=== PATIENT | female | born 1950 | race Caucasian/White ===

== ENCOUNTER 2016-05-09 14:45 | Inpatient (IN) | payer OTHER ==
[~2016-05-09] VITALS: Ht 160 cm; Wt 71.8 kg
[~2016-05-09 14:45] MED LIST: ACET-1256 PO; LINA1CAP PO; PRLSR20 PO
[2016-05-09] MEDS ORDERED: SODIUM CHLORIDE 0.9% 1000ML 1,000 ML IV STA ×2 (15:01→16:35)
[2016-05-09] MEDS ORDERED: ONDANSETRON INJ 2 MG/ML 2 ML VIAL IV STA (15:01)
[2016-05-09] MEDS ORDERED: OPTIRAY 320 IV PRN (15:15)
[2016-05-09] MEDS: MoRPHine SULFATE 4 MG/ML 1 ML CARP\\VIAL IV PRN ×2 (15:17→16:46)
--- NOTE | 2016-05-09 15:25 | EMERGENCY ROOM VISIT NOTE ---
History Report prepared by Benedicto: Jamaal Levy Under the Supervision of: Dr. Lukasz Ann D.O. First contact with patient: 14:57 Chief Complaint: ABDOMINAL PAIN Stated Complaint: BELLY PAIN History of Present Illness The patient is a 65 year old female who presents to the Emergency Room with complaints of constant mid upper abdominal pain beginning twelve hours prior to arrival. She currently rates her discomfort as a 9/10 in severity. The patient associates nausea and vomiting with today's symptoms. She states her symptoms feel similar to when she had her bowel operated on for an obstruction. The patient notes she has a history of an appendectomy and cholecystectomy. She denies a history of pancreatitis. The patient notes she last had a similar episode over a year ago. She states she is a nonsmoker and occasionally drinks alcohol. Source of History: patient Onset: 12 hours [employer] Position: abdomen (mid upper) Symptom Intensity: 9/10 Timing: constant Associated Symptoms: + abdominal pain, + nausea, + vomiting Review of Systems See HPI for pertinent positives & negatives. A total of 10 systems reviewed and were otherwise negative. Past Medical & Surgical Medical Problems: (1) Migraine (2) SBO (small bowel obstruction) Surgical Problems: (1) Hx of appendectomy (2) Hx of cholecystectomy (3) S/P rotator cuff surgery (4) S/P tonsillectomy (5) S/P tonsillectomy and adenoidectomy (6) S/P tubal ligation Family History Cancer Diabetes mellitus FH: thyroid disease FHx: asthma FHx: epilepsy FHx: heart disease Hypertension Lung disease Social History Smoking Status: Never Smoker Alcohol Use: none Drug Use: none Marital Status: Housing Status: lives with family Occupation Status: retired Current/Historical Medications Scheduled Cholecalciferol (Vitamin D), 1 TAB PO DAILY Krill Oil (Krill Oil [place]-3), 1 CAP PO DAILY Linaclotide (Linzess), 145 MCG PO DAILY Omeprazole (Prilosec), 20 MG PO DAILY Scheduled PRN Acetaminophen (Tylenol), 1,000 MG PO Q6 PRN for Pain or Fever Allergies Coded Allergies: Corticosteroids (Verified Allergy, Unknown, RASH/NERVOUSNESS, 05/09/16) Physical Exam Vital Signs Date Time Temp Pulse Resp B/P Pulse Ox O2 Delivery O2 Flow Rate FiO2 05/09/16 18:00 98 Room Air 05/09/16 17:34 70 18 129/75 98 Room Air 05/09/16 16:45 74 16 123/77 98 Room Air 05/09/16 15:33 73 05/09/16 14:50 36.4 102 20 164/100 99 Room Air Physical Exam GENERAL: Patient is awake, alert, and very anxious and uncomfortable appearing. EYES: The conjunctivae are clear. The pupils are round and reactive. EARS, NOSE, MOUTH AND THROAT: The nose is without any evidence of any deformity. Mucous membranes are dry, tongue is midline NECK: The neck is nontender and supple. RESPIRATORY: Normal respiratory effort is noted there is no evidence of wheezing rhonchi or rales CARDIOVASCULAR: Regular rate and rhythm noted there no murmurs rubs or gallops normal S1 normal S2 GASTROINTESTINAL: The abdomen is moderately distended. No specific guarding or rigidity noted. MUSCULOSKELETAL/EXTREMITIES: There is no evidence of gross deformity full range of motion is noted in the hips and shoulders SKIN: There is no obvious evidence of any rash. There are no petechiae, pallor or cyanosis noted. NEUROLOGIC: Patient is awake alert and oriented x3. Medical Decision & Procedures ER Provider Diagnostic Interpretation: Radiology results as stated below per my review and radiologist interpretation: CHEST ONE VIEW PORTABLE CLINICAL HISTORY: Abdominal pain. COMPARISON STUDY: Chest radiograph December 09, 2014. FINDINGS: Lung volumes are normal. There is no pneumothorax or pleural effusion. Cardiac size is normal. Mediastinal contours are stable. There is no evidence of pulmonary edema. IMPRESSION: No acute cardiopulmonary findings. Electronically signed by: Xavi Olsen M.D. 05/09/2016 3:[address] OF THE ABDOMEN AND PELVIS WITH CONTRAST CLINICAL HISTORY: Vomiting. History of small bowel obstruction. COMPARISON STUDY: CT of the abdomen and pelvis March 08, 2014 and KUB March 09, 2014. TECHNIQUE: Following IV administration of 114 mL of Optiray-320, axial images of the abdomen and pelvis were obtained from the lung bases to the proximal femurs. Images were reviewed in the axial, sagittal, and coronal planes. IV contrast was administered without complication. CT DOSE: 402.98 mGy.cm FINDINGS: No pneumatosis, free air or portal venous gas is present. A 1.8 cm right hepatic lobe cyst is noted. Scarring of both kidneys is noted. The spleen, adrenal glands and pancreas are normal. There is no biliary or pancreatic ductal dilatation. The gallbladder is surgically absent. The mid to distal small bowel is fluid-filled and mildly dilated. There is a small amount of associated ascites and mesenteric infiltration. The transition point is is within the right mid abdomen shown on axial image 185 of 466. No suspicious osseous lesions are identified. IMPRESSION: Findings consistent with a moderate grade partial small bowel obstruction. Fluid-filled, dilated small bowel with a small amount of associated ascites and mesenteric infiltration. Transition point within the mid to distal ileum, within the right aspect of the abdomen. Decompressed distal small bowel. Mild distended, fluid-filled stomach. Electronically signed by: Xavi Olsen M.D. 05/09/2016 4:27 PM Laboratory Results Test 05/09/16 15:15 05/09/16 15:25 05/09/16 16:30 Prothrombin Time 10.0 SECONDS (9.0-12.0) Prothromb Time International Ratio 0.9 (0.9-1.1) Activated Partial Thromboplast Time 25.5 SECONDS (21.0-31.0) Partial Thromboplastin Ratio 1.0 Total Creatine Kinase 92 U/L (26-192) Creatine Kinase MB 1.5 ng/ml (0.5-3.6) Creatine Kinase MB Ratio 1.6 (0-3.0) Troponin I < 0.015 ng/ml (0-0.045) Lipase 100 U/L (73-393) Bedside Hemoglobin 14.3 g/dl (12.0-16.0) Bedside Hematocrit 42 % (37-47) Bedside Sodium 140 mEq/L (135-144) Bedside Potassium 3.9 mEq/L (3.3-5.0) Bedside Chloride 104 mEq/L (101-112) Bedside Total CO2 24 mEq/l (24-31) Bedside Blood Urea Nitrogen 8 mg/dl (7-18) Bedside Creatinine 0.6 mg/dl (0.6-1.3) Bedside Glucose (other) 112 mg/dl (70-99) Bedside Ionized Calcium (Maia) 1.22 mmol/l (1.12-1.32) Urine Color YELLOW Urine Appearance CLEAR (CLEAR) Urine pH 8.0 (4.5-7.5) Urine Specific [place] > 1.045 (1.000-1.030) Urine Protein NEG (NEG) Urine Glucose (UA) NEG (NEG) Urine Ketones 1+ (NEG) Urine Occult Blood NEG (NEG) Urine Nitrite NEG (NEG) Urine Bilirubin NEG (NEG) Urine Urobilinogen NEG (NEG) Urine Leukocyte Esterase NEG (NEG) Laboratory results per my review. Medications Administered Medications (Trade) Dose Ordered Sig/Patricia Route Start Time Stop Time Status Last Admin Dose Admin Sodium Chloride (Nss 1000ml) 1,000 ml @ 999 mls/hr Q1H1M STAT IV 05/09/16 15:01 05/09/16 16:01 DC 05/09/16 15:17 999 MLS/HR Ondansetron HCl (Zofran Inj) 4 mg NOW STAT IV 05/09/16 15:01 05/09/16 15:03 DC 05/09/16 15:16 4 MG Morphine Sulfate 4 mg 4 mg Q15M PRN IV 05/09/16 15:15 05/09/16 19:27 DC 05/09/16 16:46 4 MG Pantoprazole Sodium 40 mg/ Syringe 10 ml @ 5 mls/min NOW ONCE IV 05/09/16 16:45 05/09/16 16:46 DC 05/09/16 16:54 5 MLS/MIN Famotidine 20 mg/ Dextrose 102 ml @ 200 mls/hr Q12H IV 05/09/16 16:45 05/09/16 19:27 DC 05/09/16 16:54 200 MLS/HR Sodium Chloride (Nss 1000ml) 1,000 ml @ 250 mls/hr Q4H STAT IV 05/09/16 16:35 05/09/16 19:26 DC 05/09/16 16:47 250 MLS/HR ECG Indication: abdominal pain Rate (beats per minute): 71 Rhythm: normal sinus Findings: no ectopy, other (no acute ST segment abnormalities) Comparison ECG Date: 03/08/2014 Change: no significant change ED Course 1459: The patient was evaluated in room B2. A complete history and physical examination were performed. 1501: Ordered Zofran Inj 4 mg IV, Sodium Chloride 1,000 ml @ 999 mls/hr IV. 1515: Ordered Morphine Sulfate 4 mg IV. 1635: Ordered Sodium Chloride 1,000 ml @ 250 mls/hr IV. 1645: Ordered Famotidine 20 mg/Dextrose 102 ml @ 200 mls/hr IV, Pantoprazole Sodium 40 mg/Syringe 10 ml @ 5 mls/min IV. 1703: I spoke to SHEYLA Pedraza (Hospitalist) about the patient's case, and she will follow the patient for further evaluation. Medical Decision Differential diagnosis: Etiologies such as diverticulitis, PUD, biliary pathology, UTI, pancreatitis, obstruction, mesenteric ischemia, aortic pathology, infections, inflammatory bowel disease, renal colic, as well as others were entertained. Nursing notes reviewed. Nursing notes reviewed. Patient's previous electronic medical records reviewed. The patient is a 65-year-old female who presented to the emergency department for an evaluation of abdominal distention nausea and vomiting. The patient has a history small bowel obstruction. Radiographic studies today do show a high suspicion for partial small bowel obstruction but it seems very significant at this time. The patient was treated with IV fluids IV pain medicine and IV antiemetics. She was also treated with proton pump inhibitors and H2 blockers. On subsequent reevaluation she was not having significant nausea and vomiting. I discussed the patient's laboratory and radiographic studies with her. I also discussed her case with the on-call [facility] hospitalist group. They've agreed to evaluate patient in emergency department for further management and disposition. Consults Time Called: 1649 Consulting Physician: SHEYLA Pedraza (Hospitalist) Returned Call: [phone] I spoke to SHEYLA Pedraza (Hospitalist) about the patient's case, and she will follow the patient for further evaluation. Impression Primary Impression: Small bowel obstruction Additional Impression: Nausea & vomiting Scribe Attestation The scribe's documentation has been prepared under my direction and personally reviewed by me in its entirety. I confirm that the note above accurately reflects all work, treatment, procedures, and medical decision making performed by me. Departure Information Dispostion Being Evaluated By Hospitalist (SHEYLA Pedraza (Hospitalist)) Referrals No Doctor, Assigned (PCP) Problem Qualifiers Additional Impression: Nausea & vomiting Vomiting type: unspecified Vomiting Intractability: non-intractable Qualified Codes: R11.2 - Nausea with vomiting, unspecified
[2016-05-09 15:29] LABS: BASO % 0.3 %; BASO ABS # 0.02 K/uL (0-0.2); COMPLETE YES; EOS % 0.9 %; HEMATOCRIT 39.1 % (37-47); IG% 0.3 %; LYMPH ABS # 0.83 K/uL (1.2-3.4); MEAN CELL VOLUME 87.5 fL (80-100); MEAN CORPUSCULAR HEMOGLOBIN 31.3 pg (25-34); MEAN CORPUSCULAR HGB CONC 35.8 g/dl (32-36); MEAN PLATELET VOLUME 9.5 fL (7.4-10.4); MONO % 4.4 %; NEUT % 83.1 %; PLATELET COUNT 345 K/uL (130-400); RED BLOOD COUNT 4.47 M/uL (4.2-5.4); WHITE BLOOD COUNT 7.53 K/uL (4.8-10.8)
[2016-05-09] MEDS ORDERED: KRIL1CAP7 PO (15:35)
[2016-05-09] MEDS ORDERED: CHOL1TAB42 PO (15:35)
[2016-05-09 15:38] LABS: ISTAT CREATININE 0.6 mg/dl (0.6-1.3); ISTAT HEMOGLOBIN 14.3 g/dl (12.0-16.0); ISTAT IONIZED CALCIUM 1.22 mmol/l (1.12-1.32)
[2016-05-09 15:40] LABS: INR 0.9 (0.9-1.1)
[2016-05-09 15:46] LABS: ALT/SGPT 21 U/L (12-78); BLOOD UREA NITROGEN 8 mg/dl (7-18); BUN/CREATININE RATIO 10.6 (10-20); CALCIUM 9.5 mg/dl (8.5-10.1); CARBON DIOXIDE 27 mmol/L (21-32); CHLORIDE 106 mmol/L (98-107); CREATININE 0.77 mg/dl (0.60-1.20); GLUCOSE 110 mg/dl (70-99); POTASSIUM 3.8 mmol/L (3.5-5.1); SODIUM 141 mmol/L (136-145)
[2016-05-09 15:51] LABS: ALKALINE PHOSPHATASE 102 U/L (45-117); AST/SGOT 18 U/L (15-37); CKMB/CK RATIO 1.6 (0-3.0)
--- NOTE | 2016-05-09 15:52 | DIAGNOSTIC IMAGING REPORT ---
CHEST ONE VIEW PORTABLE CLINICAL HISTORY: Abdominal pain. COMPARISON STUDY: Chest radiograph December 09, 2014. FINDINGS: Lung volumes are normal. There is no pneumothorax or pleural effusion. Cardiac size is normal. Mediastinal contours are stable. There is no evidence of pulmonary edema. IMPRESSION: No acute cardiopulmonary findings. Electronically signed by: Xavi Olsen M.D. 05/09/2016 3:50 PM Dictated Date/Time: 05/09/2016 3:49 PM
--- NOTE | 2016-05-09 16:28 | DIAGNOSTIC IMAGING REPORT ---
CT OF THE ABDOMEN AND PELVIS WITH CONTRAST CLINICAL HISTORY: Vomiting. History of small bowel obstruction. COMPARISON STUDY: CT of the abdomen and pelvis March 08, 2014 and KUB March 09, 2014. TECHNIQUE: Following IV administration of 114 mL of Optiray-320, axial images of the abdomen and pelvis were obtained from the lung bases to the proximal femurs. Images were reviewed in the axial, sagittal, and coronal planes. IV contrast was administered without complication. CT DOSE: 402.98 mGy.cm FINDINGS: No pneumatosis, free air or portal venous gas is present. A 1.8 cm right hepatic lobe cyst is noted. Scarring of both kidneys is noted. The spleen, adrenal glands and pancreas are normal. There is no biliary or pancreatic ductal dilatation. The gallbladder is surgically absent. The mid to distal small bowel is fluid-filled and mildly dilated. There is a small amount of associated ascites and mesenteric infiltration. The transition point is is within the right mid abdomen shown on axial image 185 of 466. No suspicious osseous lesions are identified. IMPRESSION: Findings consistent with a moderate grade partial small bowel obstruction. Fluid-filled, dilated small bowel with a small amount of associated ascites and mesenteric infiltration. Transition point within the mid to distal ileum, within the right aspect of the abdomen. Decompressed distal small bowel. Mild distended, fluid-filled stomach. Electronically signed by: Xavi Olsen M.D. 05/09/2016 4:27 PM Dictated Date/Time: 05/09/2016 4:18 PM
[2016-05-09] MEDS ORDERED: PANTOprazole INJ 40 MG in SYRINGE 0 ML IV ONE (16:45)
[2016-05-09] MEDS ORDERED: FAMOTIDINE IV INJ 20 MG in DEXTROSE 5% 100ML 100 ML IV SCH (16:45)
[2016-05-09 16:49] LABS: URINE APPEARANCE CLEAR (CLEAR); URINE BILIRUBIN NEG (NEG); URINE COLOR YELLOW; URINE NITRITE NEG (NEG); URINE SPECIFIC GRAVITY > 1.045 (1.000-1.030); UROBILINOGEN NEG (NEG)
[2016-05-09 17:07] LABS: MANUAL MICROSCOPIC REQUIRED? NO; REVIEW REQ? NO
[2016-05-09 18:00] VITALS: O2SAT 98; BMI 28.0
[2016-05-09 18:02] VITALS: Ht 160 cm; Wt 71.8 kg
[2016-05-09] MEDS ORDERED: MoRPHine SULFATE 2 MG/ML CARP IV PRN (18:30)
[2016-05-09] MEDS ORDERED: MoRPHine SULFATE 4 MG/ML 1 ML CARP\\VIAL IV PRN (18:30)
[2016-05-09 19:15] VITALS: BP 130/78; PULSE 65; TEMP 36.5; O2SAT 95
[2016-05-09] MEDS ORDERED: NURSING VERBAL MED ORDER ONE (19:45)
[2016-05-09] MEDS ORDERED: ONDANSETRON INJ 2 MG/ML 2 ML VIAL ONE (19:49)
[2016-05-09] MEDS: D5W AND 1/2NSS + 20MEQ KCL 1,000 ML IV SCH (19:50)
[2016-05-09] MEDS ORDERED: ONDANSETRON INJ 2 MG/ML 2 ML VIAL IV PRN (20:00)
[2016-05-09 23:18] VITALS: BP 133/76; PULSE 68; TEMP 36.3; O2SAT 96
--- NOTE | 2016-05-09 23:19 | History and Physical ---
History & Physical Date & Time of Service: May 09, 2016 at 23:03 Chief Complaint: SBO Primary Care Physician: Zack Cerda D.O. History of Present Illness Source: patient, family This patient is a 65-year-old female with a history of small bowel obstruction, GERD, chronic constipation, lumbar spondylosis, and migraines, who presents to the ER with sudden onset of upper abdominal pain and vomiting that started the morning of admission. She is reported it felt exactly like the last time she had a small bowel obstruction. Her previous SBO was in 2012 at [facility] for which she underwent an exploratory laparotomy which did not reveal a cause for her SBO. The surgeon removed her appendix at that time. She denies fevers, chest pain, shortness of breath. Her CT of the abdomen and pelvis in the ER showed findings consistent with a moderate grade partial small bowel obstruction with a fluid-filled, dilated small bowel with a small amount of associated ascites and mesenteric infiltration. Transition point within the mid to distal ileum, within the right aspect of the abdomen. Past Medical/Surgical History Past Medical History: Migraine-now resolved post menopausal Small bowel obstruction GERD Lumbar spondylosis Chronic constipation Past Surgical History: Appendectomy Cholecystectomy Rotator cuff surgery-right Tonsillectomy Bilateral tubal ligation Exploratory laparotomy for SBO Cataracts Kidney repair-"tacked up" Family History Cancer Diabetes mellitus FH: thyroid disease FHx: asthma FHx: epilepsy FHx: heart disease Hypertension Lung disease Diabetes and coronary artery disease in father Lung cancer in her mother Brother from aortic aneurysm Sister passed way from complications from diabetes Sister currently with liver cancer Social History Smoking Status: Never Smoker Alcohol Use: occasionally (one drink per month) Drug Use: none Marital Status: Housing status: lives with family 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[employer]) Immunizations History of Influenza Vaccine: Yes Influenza Vaccine Date: Nov 13, 2012 History of Tetanus Vaccine?: utd History of Pneumococcal: No History of Hepatitis B Vaccine: No Multi-Drug Resistant Organisms History of MDRO: No Allergies Coded Allergies: Corticosteroids (Verified Allergy, Unknown, RASH/NERVOUSNESS, 05/09/16) Home Medications Scheduled Cholecalciferol (Vitamin D), 1 TAB PO DAILY Krill Oil (Krill Oil [place]-3), 1 CAP PO DAILY Linaclotide (Linzess), 145 MCG PO DAILY Omeprazole (Prilosec), 20 MG PO DAILY Scheduled PRN Acetaminophen (Tylenol), 1,000 MG PO Q6 PRN for Pain or Fever Review of Systems Constitutional: No chills, No fever Eyes: No problem reported ENT: No problem reported Respiratory: No shortness of breath Cardiovascular: No chest pain Abdomen: + nausea, + pain, + vomiting, No GI bleeding, No constipation, No diarrhea Musculoskeletal: No problem reported Genitourinary - Female: No problem reported Neurologic: No problem reported Psychiatric: No problem reported Endocrine: No problem reported Hematologic / Lymphatic: No problem reported Integumentary: No problem reported Allergic / Immunologic: No problem reported Physical Exam Vital Signs Date Time Temp Pulse Resp B/P Pulse Ox O2 Delivery O2 Flow Rate FiO2 05/09/16 19:15 36.5 65 16 130/78 95 Room Air 05/09/16 19:15 Room Air 05/09/16 19:03 64 16 127/76 100 Room Air 05/09/16 18:00 98 Room Air 05/09/16 17:34 70 18 129/75 98 Room Air 05/09/16 16:45 74 16 123/77 98 Room Air 05/09/16 15:33 73 05/09/16 14:50 36.4 102 20 164/100 99 Room Air General Appearance: WD/WN, + mild distress Head: normocephalic, atraumatic Eyes: normal inspection, PERRL, EOMI ENT: hearing grossly normal, pharynx normal Neck: supple, no adenopathy, thyroid normal, no JVD, no carotid bruits, trachea midline Respiratory/Chest: lungs clear, normal breath sounds, no respiratory distress, no accessory muscle use Cardiovascular: regular rate, rhythm, no edema, no gallop, no murmur, normal peripheral pulses Abdomen/GI: soft, no organomegaly, no pulsatile mass, + tenderness (all across upper abdomen but mostly in epigastric region without guarding or rebound tenderness), + abnormal bowel sounds (hypoactive) Back: normal inspection Extremities/Musculoskelatal: normal inspection, no calf tenderness, normal capillary refill, no pedal edema, normal range of motion Neurologic/Psych: alert, normal mood/affect, oriented x 3 Skin: normal color, warm/dry, no rash Lymphatic: no adenopathy Diagnostics Laboratory Results Results Past 24 Hours Test 05/09/16 15:15 05/09/16 15:25 05/09/16 16:30 Range/Units White Blood Count 7.53 4.8-10.8 K/uL Red Blood Count 4.47 4.2-5.4 M/uL Hemoglobin 14.0 12.0-16.0 g/dL Hematocrit 39.1 37-47 % Mean Corpuscular Volume 87.5 80-100 fL Mean Corpuscular Hemoglobin 31.3 25-34 pg Mean Corpuscular Hemoglobin Concent 35.8 32-36 g/dl Platelet Count 345 130-400 K/uL Mean Platelet Volume 9.5 7.4-10.4 fL Neutrophils (%) (Auto) 83.1 % Lymphocytes (%) (Auto) 11.0 % Monocytes (%) (Auto) 4.4 % Eosinophils (%) (Auto) 0.9 % Basophils (%) (Auto) 0.3 % Neutrophils # (Auto) 6.26 1.4-6.5 K/uL Lymphocytes # (Auto) 0.83 1.2-3.4 K/uL Monocytes # (Auto) 0.33 0.11-0.59 K/uL Eosinophils # (Auto) 0.07 0-0.5 K/uL Basophils # (Auto) 0.02 0-0.2 K/uL RDW Standard Deviation 44.1 36.4-46.3 fL RDW Coefficient of Variation 13.7 11.5-14.5 % Immature Granulocyte % (Auto) 0.3 % Immature Granulocyte # (Auto) 0.02 0.00-0.02 K/uL Prothrombin Time 10.0 9.0-12.0 SECONDS Prothromb Time International Ratio 0.9 0.9-1.1 Activated Partial Thromboplast Time 25.5 21.0-31.0 SECONDS Partial Thromboplastin Ratio 1.0 Sodium Level 141 136-145 mmol/L Potassium Level 3.8 3.5-5.1 mmol/L Chloride Level 106 98-107 mmol/L Carbon Dioxide Level 27 21-32 mmol/L Anion Gap 8.0 18.0 16-25 mmol/L Blood Urea Nitrogen 8 7-18 mg/dl Creatinine 0.77 0.60-1.20 mg/dl Estimated GFR () 93.9 Estimated GFR (Non- 81.0 BUN/Creatinine Ratio 10.6 10-20 Random Glucose 110 70-99 mg/dl Calcium Level 9.5 8.5-10.1 mg/dl Total Bilirubin 0.6 0.2-1 mg/dl Direct Bilirubin < 0.1 0-0.2 mg/dl Aspartate Amino Transf (AST/SGOT) 18 15-37 U/L Alanine Aminotransferase (ALT/SGPT) 21 12-78 U/L Alkaline Phosphatase 102 45-117 U/L Total Creatine Kinase 92 26-192 U/L Creatine Kinase MB 1.5 0.5-3.6 ng/ml Creatine Kinase MB Ratio 1.6 0-3.0 Troponin I < 0.015 0-0.045 ng/ml Total Protein 7.5 6.4-8.2 gm/dl Albumin 3.5 3.4-5.0 gm/dl Lipase 100 73-393 U/L Bedside Hemoglobin 14.3 12.0-16.0 g/dl Bedside Hematocrit 42 37-47 % Bedside Sodium 140 135-144 mEq/L Bedside Potassium 3.9 3.3-5.0 mEq/L Bedside Chloride 104 101-112 mEq/L Bedside Total CO2 24 24-31 mEq/l Bedside Blood Urea Nitrogen 8 7-18 mg/dl Bedside Creatinine 0.6 0.6-1.3 mg/dl Bedside Glucose (other) 112 70-99 mg/dl Bedside Ionized Calcium (Maia) 1.22 1.12-1.32 mmol/l Urine Color YELLOW Urine Appearance CLEAR CLEAR Urine pH 8.0 4.5-7.5 Urine Specific [place] > 1.045 1.000-1.030 Urine Protein NEG NEG Urine Glucose (UA) NEG NEG Urine Ketones 1+ NEG Urine Occult Blood NEG NEG Urine Nitrite NEG NEG Urine Bilirubin NEG NEG Urine Urobilinogen NEG NEG Urine Leukocyte Esterase NEG NEG Diagnostic Radiology CT abdomen and pelvis images were reviewed CXR normal EKG Normal sinus rhythm, possible old septal infarct versus changes from poor lead placement Impression Assessment and Plan This patient is a 65-year-old female with a history of small bowel obstruction, GERD, chronic constipation, lumbar spondylosis, and migraines, who presents to the ER with sudden onset of upper abdominal pain and vomiting, found to have small bowel obstruction. SBO-recurrent in with history of several abdominal surgeries, most likely secondary to adhesions. Patient is refusing NG tube despite recurrent vomiting and persistent abdominal pain that does respond to pain medication. Discussed the importance of placing the NG tube. -Pain control and antiemetics -NG tube ordered to be placed but patient declines at this time-discussed with nursing and will continue to encourage patient to have NG tube placed -General surgery consultation is appreciated -Repeat KUB in the morning -Keep nothing by mouth -IV fluids for hydration while nothing by mouth -IV PPI for history of GERD Chronic constipation-here with acute SBO and nothing by mouth -Hold by mouth Linzess for now DVT prophylaxis-SCDs only in case of need for surgery Disposition-full code Advanced Directives Existing Living Will: Yes Existing Power of Neonatal Critical Care Nurse: Yes VTE Prophylaxis VTE Risk Assessment Done? Y/N: Yes Risk Level: Low Additional Copies To Zack Cerda D.O.
[2016-05-09] MEDS: PROMETHAZINE HCL INJ 12.5 MG in SODIUM CHLORIDE 0.9% 50ML 50 ML IV PRN (23:39)
[2016-05-10] MEDS: D5W AND 1/2NSS + 20MEQ KCL 1,000 ML IV SCH ×2 (05:25→15:01)
[2016-05-10 06:24] LABS: BASO % 0.2 %; BASO ABS # 0.01 K/uL (0-0.2); COMPLETE YES; EOS % 2.2 %; HEMATOCRIT 33.7 % (37-47); IG% 0.2 %; LYMPH % 18.8 %; LYMPH ABS # 1.03 K/uL (1.2-3.4); MEAN CELL VOLUME 90.6 fL (80-100); MEAN CORPUSCULAR HEMOGLOBIN 30.4 pg (25-34); MEAN CORPUSCULAR HGB CONC 33.5 g/dl (32-36); MONO % 7.3 %; NEUT % 71.3 %; PLATELET COUNT 275 K/uL (130-400); RED BLOOD COUNT 3.72 M/uL (4.2-5.4); WHITE BLOOD COUNT 5.47 K/uL (4.8-10.8)
[2016-05-10 06:59] LABS: BUN/CREATININE RATIO 11.9 (10-20); CALCIUM 8.3 mg/dl (8.5-10.1); CREATININE 0.61 mg/dl (0.60-1.20); MAGNESIUM 2.2 mg/dl (1.8-2.4)
[2016-05-10 07:15] VITALS: BP 126/76; PULSE 69; TEMP 36.8; O2SAT 98
[2016-05-10 07:45] VITALS: O2SAT 100
--- NOTE | 2016-05-10 09:18 | DIAGNOSTIC IMAGING REPORT ---
KUB CLINICAL HISTORY: Small bowel obstruction COMPARISON STUDY: 03/09/2014 FINDINGS: There are surgical clips within the pelvis. Degenerative changes are present within the spine. There are surgical clips in the right upper quadrant consistent with a prior cholecystectomy. There is a nasogastric tube within the stomach. There is moderate right colonic stool. There is no pathologic bowel dilatation. IMPRESSION: No evidence of pathologic bowel dilatation. Electronically signed by: Tj Arroyo M.D. 05/10/2016 9:17 AM Dictated Date/Time: 05/10/2016 9:16 AM
[2016-05-10] MEDS: PANTOprazole INJ 40 MG in SYRINGE 0 ML IV SCH (09:25)
[2016-05-10] MEDS ORDERED: NURSING DECISION MEDICATION ORDER SCH (09:30)
[2016-05-10] MEDS ORDERED: SODIUM CHLORIDE 0.65% NA SOLN 45 ML (OCEAN) ONE (09:36)
[2016-05-10] MEDS ORDERED: SODIUM CHLORIDE 0.65% NA SOLN 45 ML (OCEAN) PRN (09:45)
--- NOTE | 2016-05-10 11:22 | CONSULTATION REPORT ---
DATE OF CONSULTATION: 05/10/2016 REASON FOR CONSULTATION: Bowel obstruction. SUMMARY: Nadine is a 65-year-old female who has had a history of bowel obstruction, in fact she was operated back in 2012 at [facility] where at that time they really did not find anything as far as the etiology of the obstruction an appendectomy was performed. She has been well since then since she started developing last 24 hours so some acute onset of abdominal pain with no vomiting. A CAT scan when she was admitted to the Emergency Room here was found what appeared to be small-bowel obstruction with a transition between mid and distal ileum. PAST MEDICAL AND SURGICAL HISTORY: Include appendectomy, cholecystectomy, rotator cuff surgery, tonsillectomy, bilateral tubal ligation and exploratory lap for bowel obstruction in 2002, bladder repair. She also carries a history of GERD, lumbar spondylosis, chronic constipation, and migraine. SOCIAL HISTORY: Nonsmoker, nondrinker. HOME MEDICATIONS: Reviewed. PHYSICAL EXAMINATION: GENERAL: As I see her this morning, Nadine is in no acute distress. She has a very small NG tube in place, apparently a larger caliber was not be able to be inserted and she had an output of about 180 mL since insertion, but she feels much better. HEENT: Normocephalic. Sclerae is nonicteric. NECK: There is no cervical lymphadenopathy. HEART AND LUNGS: Clear. ABDOMEN: A midline incision was noted. There is no tenderness. The abdomen is completely benign at this time and she has not had any subjective pain. LABORATORY STUDIES: Her white count when she came in was 7.53 without a shift. This morning it was repeated and was still the same at 5.7, some slight drop of the hemoglobin was from rehydration. The albumin is 2.6. IMPRESSION AND RECOMMENDATIONS: At this point, as I explained to the patient barely do we need to operate on a bowel obstruction urgently, we basically tried conservative therapy which would include an NG tube and reevalute . If she gets to the point where clinically she deteriorates or feels an NG decompression trial, then we will probably recommend her to surgery, but before that I probably would like to get an upper GI with a small bowel follow through to make sure that there definitely see a transition point, but that will be based on a clinical basis to dictate which avenue we take. Thank you for allowing us to participate in the care your patient. AYDE
--- NOTE | 2016-05-10 11:24 | Progress Note ---
Subjective Date of Service: May 10, 2016. Subjective Pt evaluation today including: conversation w/ patient, physical exam, chart review, lab review, review of studies, review of inpatient medication list Resting comfortably in bed NGT in place Passing gas, no stools No worsening abd pain Problem List Medical Problems: (1) Nausea & vomiting Status: Acute (2) Small bowel obstruction Status: Acute Review of Systems Constitutional: No chills, No fever Respiratory: No cough, No dyspnea on exertion, No shortness of breath, No sputum, No wheezing Cardiac: No chest pain, No orthopnea Abdomen: No constipation, No diarrhea, No nausea, No pain, No vomiting Musculoskeletal: No joint pain, No muscle pain Female : No dysuria, No hematuria, No urinary frequency Psychiatric: No anxiety, No depression symptoms Objective Vital Signs Date Time Temp Pulse Resp B/P Pulse Ox O2 Delivery O2 Flow Rate FiO2 05/10/16 07:45 100 Room Air 05/10/16 07:15 36.8 69 16 126/76 98 Room Air 05/09/16 23:30 Room Air 05/09/16 23:18 36.3 68 18 133/76 96 Room Air 05/09/16 19:15 36.5 65 16 130/78 95 Room Air 05/09/16 19:15 Room Air 05/09/16 19:03 64 16 127/76 100 Room Air 05/09/16 18:00 98 Room Air 05/09/16 17:34 70 18 129/75 98 Room Air 05/09/16 16:45 74 16 123/77 98 Room Air 05/09/16 15:33 73 05/09/16 14:50 36.4 102 20 164/100 99 Room Air Physical Exam General Appearance: WD/WN, + mild distress Neck: supple, no adenopathy Respiratory/Chest: lungs clear, normal breath sounds Cardiovascular: no edema, no gallop Abdomen: non tender, soft Neurologic/Psychiatric: alert, normal mood/affect, oriented x 3 Laboratory Results Last 24 Hours Test 05/09/16 15:15 05/09/16 15:25 05/09/16 16:30 05/10/16 06:15 White Blood Count 7.53 K/uL 5.47 K/uL Red Blood Count 4.47 M/uL 3.72 M/uL Hemoglobin 14.0 g/dL 11.3 g/dL Hematocrit 39.1 % 33.7 % Mean Corpuscular Volume 87.5 fL 90.6 fL Mean Corpuscular Hemoglobin 31.3 pg 30.4 pg Mean Corpuscular Hemoglobin Concent 35.8 g/dl 33.5 g/dl Platelet Count 345 K/uL 275 K/uL Mean Platelet Volume 9.5 fL 9.0 fL Neutrophils (%) (Auto) 83.1 % 71.3 % Lymphocytes (%) (Auto) 11.0 % 18.8 % Monocytes (%) (Auto) 4.4 % 7.3 % Eosinophils (%) (Auto) 0.9 % 2.2 % Basophils (%) (Auto) 0.3 % 0.2 % Neutrophils # (Auto) 6.26 K/uL 3.90 K/uL Lymphocytes # (Auto) 0.83 K/uL 1.03 K/uL Monocytes # (Auto) 0.33 K/uL 0.40 K/uL Eosinophils # (Auto) 0.07 K/uL 0.12 K/uL Basophils # (Auto) 0.02 K/uL 0.01 K/uL RDW Standard Deviation 44.1 fL 46.1 fL RDW Coefficient of Variation 13.7 % 14.0 % Immature Granulocyte % (Auto) 0.3 % 0.2 % Immature Granulocyte # (Auto) 0.02 K/uL 0.01 K/uL Prothrombin Time 10.0 SECONDS Prothromb Time International Ratio 0.9 Activated Partial Thromboplast Time 25.5 SECONDS Partial Thromboplastin Ratio 1.0 Sodium Level 141 mmol/L 142 mmol/L Potassium Level 3.8 mmol/L 4.0 mmol/L Chloride Level 106 mmol/L 110 mmol/L Carbon Dioxide Level 27 mmol/L 27 mmol/L Anion Gap 8.0 mmol/L 18.0 mmol/L 5.0 mmol/L Blood Urea Nitrogen 8 mg/dl 7 mg/dl Creatinine 0.77 mg/dl 0.61 mg/dl Estimated GFR () 93.9 110.3 Estimated GFR (Non- 81.0 95.1 BUN/Creatinine Ratio 10.6 11.9 Random Glucose 110 mg/dl 125 mg/dl Calcium Level 9.5 mg/dl 8.3 mg/dl Total Bilirubin 0.6 mg/dl 0.6 mg/dl Direct Bilirubin < 0.1 mg/dl 0.1 mg/dl Aspartate Amino Transf (AST/SGOT) 18 U/L 13 U/L Alanine Aminotransferase (ALT/SGPT) 21 U/L 19 U/L Alkaline Phosphatase 102 U/L 72 U/L Total Creatine Kinase 92 U/L Creatine Kinase MB 1.5 ng/ml Creatine Kinase MB Ratio 1.6 Troponin I < 0.015 ng/ml Total Protein 7.5 gm/dl 5.7 gm/dl Albumin 3.5 gm/dl 2.6 gm/dl Lipase 100 U/L Bedside Hemoglobin 14.3 g/dl Bedside Hematocrit 42 % Bedside Sodium 140 mEq/L Bedside Potassium 3.9 mEq/L Bedside Chloride 104 mEq/L Bedside Total CO2 24 mEq/l Bedside Blood Urea Nitrogen 8 mg/dl Bedside Creatinine 0.6 mg/dl Bedside Glucose (other) 112 mg/dl Bedside Ionized Calcium ([place]) 1.22 mmol/l Urine Color YELLOW Urine Appearance CLEAR Urine pH 8.0 Urine Specific [place] > 1.045 Urine Protein NEG Urine Glucose (UA) NEG Urine Ketones 1+ Urine Occult Blood NEG Urine Nitrite NEG Urine Bilirubin NEG Urine Urobilinogen NEG Urine Leukocyte Esterase NEG Est Creatinine Clear Calc Drug Dose 87.3 ml/min Magnesium Level 2.2 mg/dl Assessment and Plan This patient is a 65-year-old female with a history of small bowel obstruction, GERD, chronic constipation, lumbar spondylosis, and migraines, who presents to the ER with sudden onset of upper abdominal pain and vomiting, found to have small bowel obstruction. SBO-recurrent in with history of several abdominal surgeries, most likely secondary to adhesions. - NGT in place -Pain control and antiemetics -General surgery consultation, conservative measures at this time -Repeat KUB in the morning -Keep nothing by mouth -IV fluids for hydration while nothing by mouth -IV PPI for history of GERD Chronic constipation-here with acute SBO and nothing by mouth -Hold by mouth Linzess for now DVT prophylaxis-SCDs only in case of need for surgery Disposition-full code
[2016-05-10] MEDS ORDERED: NURSING VERBAL MED ORDER ONE (12:30)
[2016-05-10] MEDS ORDERED: ACETAMINOPHEN IV 650 MG / 65ML IV ONE (13:00)
[2016-05-10 15:16] VITALS: BP 138/79; PULSE 73; TEMP 36.8; O2SAT 99
[2016-05-10] MEDS: PROMETHAZINE HCL INJ 12.5 MG in SODIUM CHLORIDE 0.9% 50ML 50 ML IV PRN (16:43)
[2016-05-10 22:57] VITALS: BP 117/69; PULSE 78; TEMP 36.8; O2SAT 95
[2016-05-11] MEDS: D5W AND 1/2NSS + 20MEQ KCL 1,000 ML IV SCH ×3 (00:21→21:00)
--- NOTE | 2016-05-11 05:47 | SURGERY PROGRESS NOTE ---
DATE: 05/11/2016 SUBJECTIVE: Nadine is doing much better significant other is asleep on the floor. She feels much better. She is starting to pass some flatus, although has not had a bowel movement. She denies any abdominal pain. Her vitals showed a temperature of 36.8, a pulse 78, respirations 16, blood pressure 117/60, O2 sats 95% on room air. I\T\O, she had 2050 urine over since yesterday. She had 450 out since the NG tube was inserted. Her canister has not been changed and it is pretty much the same amount now. Her abdomen is completely benign. At this point, I will discontinue the NG tube and start her on some water sips and ice chips and p.o. meds, but hold off any oral intake until she has a bowel movement. There is no reason to repeat any x-rays at this time. AYDE
[2016-05-11 08:03] VITALS: BP 134/82; PULSE 86; TEMP 36.7; O2SAT 97
[2016-05-11 08:36] LABS: BASO % 0.2 %; BASO ABS # 0.01 K/uL (0-0.2); COMPLETE YES; EOS % 3.4 %; HEMATOCRIT 35.5 % (37-47); LYMPH % 18.8 %; LYMPH ABS # 0.93 K/uL (1.2-3.4); MEAN CELL VOLUME 88.8 fL (80-100); MEAN CORPUSCULAR HGB CONC 33.8 g/dl (32-36); MEAN PLATELET VOLUME 9.3 fL (7.4-10.4); MONO % 5.3 %; NEUT % 72.3 %; PLATELET COUNT 297 K/uL (130-400); WHITE BLOOD COUNT 4.94 K/uL (4.8-10.8)
[2016-05-11] MEDS: ACETAMINOPHEN IV 650 MG in EMPTY BAG 0 ML IV PRN ×2 (08:57→19:04)
[2016-05-11 09:08] VITALS: O2SAT 97
[2016-05-11] MEDS: PANTOprazole INJ 40 MG in SYRINGE 0 ML IV SCH (10:35)
[2016-05-11] MEDS ORDERED: BISACODYL 10 MG SUPP PR STA (11:21)
--- NOTE | 2016-05-11 11:24 | Progress Note ---
Subjective Date of Service: May 11, 2016. Subjective Pt evaluation today including: conversation w/ patient, physical exam, chart review, lab review, review of studies, review of inpatient medication list Pt resting comfortably in bed Denies any abdominal pain, fevers, chills, N/V/D Still passing gas, no BM noted Asking for laxative Problem List Medical Problems: (1) Nausea & vomiting Status: Acute (2) Small bowel obstruction Status: Acute Review of Systems Constitutional: No chills, No fever Respiratory: No cough, No shortness of breath, No sputum Cardiac: No chest pain Abdomen: + constipation, No diarrhea, No nausea, No pain, No vomiting Musculoskeletal: No joint pain, No muscle pain Female : No dysuria, No urinary frequency Neurologic: No memory loss, No paralysis Objective Vital Signs Date Time Temp Pulse Resp B/P Pulse Ox O2 Delivery O2 Flow Rate FiO2 05/11/16 09:08 97 Room Air 05/11/16 08:03 36.7 86 18 134/82 97 Room Air 05/11/16 07:00 Room Air 05/11/16 00:10 Room Air 05/10/16 22:57 36.8 78 16 117/69 95 Room Air 05/10/16 15:16 36.8 73 18 138/79 99 Room Air Physical Exam General Appearance: WD/WN, no apparent distress Neck: supple, no adenopathy Respiratory/Chest: lungs clear, normal breath sounds Cardiovascular: no edema, no gallop Abdomen: non tender, soft Extremities: non-tender, normal inspection Neurologic/Psychiatric: alert, oriented x 3 Laboratory Results Last 24 Hours Test 05/11/16 08:14 White Blood Count 4.94 K/uL Red Blood Count 4.00 M/uL Hemoglobin 12.0 g/dL Hematocrit 35.5 % Mean Corpuscular Volume 88.8 fL Mean Corpuscular Hemoglobin 30.0 pg Mean Corpuscular Hemoglobin Concent 33.8 g/dl Platelet Count 297 K/uL Mean Platelet Volume 9.3 fL Neutrophils (%) (Auto) 72.3 % Lymphocytes (%) (Auto) 18.8 % Monocytes (%) (Auto) 5.3 % Eosinophils (%) (Auto) 3.4 % Basophils (%) (Auto) 0.2 % Neutrophils # (Auto) 3.57 K/uL Lymphocytes # (Auto) 0.93 K/uL Monocytes # (Auto) 0.26 K/uL Eosinophils # (Auto) 0.17 K/uL Basophils # (Auto) 0.01 K/uL RDW Standard Deviation 44.2 fL RDW Coefficient of Variation 13.6 % Immature Granulocyte % (Auto) 0.0 % Immature Granulocyte # (Auto) 0.00 K/uL Assessment and Plan This patient is a 65-year-old female with a history of small bowel obstruction, GERD, chronic constipation, lumbar spondylosis, and migraines, who presents to the ER with sudden onset of upper abdominal pain and vomiting, found to have small bowel obstruction. SBO-recurrent in with history of several abdominal surgeries, most likely secondary to adhesions. - NGT dced -Pain control and antiemetics -General surgery consultation, conservative measures at this time, start on bowel regimen -Repeat KUB in the morning -IV fluids for hydration while nothing by mouth -IV PPI for history of GERD Chronic constipation-here with acute SBO and nothing by mouth -Hold by mouth Linzess for now DVT prophylaxis-SCDs only in case of need for surgery Disposition-full code
[2016-05-11] MEDS ORDERED: POLYETHYLENE (MIRALAX) 17 GM PACK PO ONE (11:30)
[2016-05-11 15:28] VITALS: BP 132/80; PULSE 82; TEMP 36.4; O2SAT 97
[2016-05-11 22:50] VITALS: BP 111/73; PULSE 75; TEMP 36.6; O2SAT 96
[2016-05-12] MEDS: ACETAMINOPHEN IV 650 MG in EMPTY BAG 0 ML IV PRN (01:02)
[2016-05-12 07:08] VITALS: BP 121/78; PULSE 82; TEMP 36.4; O2SAT 95
[2016-05-12] MEDS: D5W AND 1/2NSS + 20MEQ KCL 1,000 ML IV SCH ×2 (07:30→17:38)
[2016-05-12] MEDS: POLYETHYLENE (MIRALAX) 17 GM PACK PO SCH (07:38)
--- NOTE | 2016-05-12 07:53 | Surgery Progress Note ---
Surgery Progress Note Date of Service May 12, 2016. Subjective + feeling well, + pain controlled Patient reports that she is feeling ok. NG tube out. Denies abdominal pain. No BM yet, passing gas. Would like to advance diet to clear liquids. Objective Vital Signs: Date Time Temp Pulse Resp B/P Pulse Ox O2 Delivery O2 Flow Rate FiO2 05/12/16 00:45 Room Air 05/11/16 22:50 36.6 75 14 111/73 96 Room Air 05/11/16 15:28 36.4 82 18 132/80 97 Room Air 05/11/16 15:25 Room Air 05/11/16 09:08 97 Room Air 05/11/16 08:03 36.7 86 18 134/82 97 Room Air General Appearance: no apparent distress Head: normocephalic, atraumatic Respiratory/Chest: no respiratory distress, no accessory muscle use Abdomen: non tender, soft Laboratory Results: Results Past 24 Hours Test 05/11/16 08:14 Range/Units White Blood Count 4.94 4.8-10.8 K/uL Red Blood Count 4.00 4.2-5.4 M/uL Hemoglobin 12.0 12.0-16.0 g/dL Hematocrit 35.5 37-47 % Mean Corpuscular Volume 88.8 80-100 fL Mean Corpuscular Hemoglobin 30.0 25-34 pg Mean Corpuscular Hemoglobin Concent 33.8 32-36 g/dl Platelet Count 297 130-400 K/uL Mean Platelet Volume 9.3 7.4-10.4 fL Neutrophils (%) (Auto) 72.3 % Lymphocytes (%) (Auto) 18.8 % Monocytes (%) (Auto) 5.3 % Eosinophils (%) (Auto) 3.4 % Basophils (%) (Auto) 0.2 % Neutrophils # (Auto) 3.57 1.4-6.5 K/uL Lymphocytes # (Auto) 0.93 1.2-3.4 K/uL Monocytes # (Auto) 0.26 0.11-0.59 K/uL Eosinophils # (Auto) 0.17 0-0.5 K/uL Basophils # (Auto) 0.01 0-0.2 K/uL RDW Standard Deviation 44.2 36.4-46.3 fL RDW Coefficient of Variation 13.6 11.5-14.5 % Immature Granulocyte % (Auto) 0.0 % Immature Granulocyte # (Auto) 0.00 0.00-0.02 K/uL Assessment & Plan clear liquids Will order Abdomen 2 view Will advance diet to clear liquids. Had suppository yesterday- no BM. Will order Colace BID.
--- NOTE | 2016-05-12 09:34 | DIAGNOSTIC IMAGING REPORT ---
CHEST AND ABDOMEN 2 VIEWS HISTORY: Follow-up small bowel obstruction. COMPARISON: KUB for. FINDINGS: The lungs are clear. The heart is normal in size. No pneumoperitoneum. No pneumatosis. Cholecystectomy. Moderate to large amount of well-formed stool seen within the colon. No dilated loops of bowel to suggest an obstruction. Multiple pelvic phleboliths. Pelvic surgical clips are again noted. Degenerative changes and mild levoscoliosis within the lumbar spine. IMPRESSION: 1. No acute process within the chest. 2. Moderate to large amount of well-formed stool within the colon. 3. No evidence for bowel obstruction. Electronically signed by: Zhang Vaughn M.D. 05/12/2016 9:32 AM Dictated Date/Time: 05/12/2016 9:30 AM
[2016-05-12] MEDS: PANTOprazole INJ 40 MG in SYRINGE 0 ML IV SCH (09:55)
[2016-05-12] MEDS: DOCUSATE SODIUM 100 MG CAP PO SCH ×2 (09:55→21:34)
[2016-05-12] MEDS ORDERED: BISACODYL 10 MG SUPP PR PRN (10:15)
[2016-05-12 10:48] LABS: BASO % 0.7 %; BASO ABS # 0.03 K/uL (0-0.2); COMPLETE YES; HEMATOCRIT 37.1 % (37-47); LYMPH % 24.7 %; MEAN CELL VOLUME 87.9 fL (80-100); MEAN CORPUSCULAR HEMOGLOBIN 30.6 pg (25-34); MEAN CORPUSCULAR HGB CONC 34.8 g/dl (32-36); MEAN PLATELET VOLUME 9.3 fL (7.4-10.4); MONO % 10.5 %; NEUT % 60.1 %; PLATELET COUNT 302 K/uL (130-400); RED BLOOD COUNT 4.22 M/uL (4.2-5.4); WHITE BLOOD COUNT 4.46 K/uL (4.8-10.8)
[2016-05-12 11:12] LABS: BUN/CREATININE RATIO 5.8 (10-20); CREATININE 0.66 mg/dl (0.60-1.20); POTASSIUM 4.3 mmol/L (3.5-5.1)
--- NOTE | 2016-05-12 13:14 | Progress Note ---
Subjective Date of Service: May 12, 2016. Subjective Pt evaluation today including: conversation w/ patient, physical exam, chart review, lab review, review of studies, review of inpatient medication list Pt resting comfortably in bed Denies any distress or abdominal pain, fevers or chills No BM Passing gas only Tolerating liquid diet Problem List Medical Problems: (1) Nausea & vomiting Status: Acute (2) Small bowel obstruction Status: Acute Review of Systems Constitutional: No chills, No fever Respiratory: No cough, No sputum Cardiac: No PND, No chest pain, No edema, No orthopnea Abdomen: + constipation, No diarrhea, No nausea, No pain, No vomiting Musculoskeletal: No joint pain, No muscle pain, No swelling Female : No dysuria, No urinary frequency Objective Vital Signs Date Time Temp Pulse Resp B/P Pulse Ox O2 Delivery O2 Flow Rate FiO2 05/12/16 08:40 Room Air 05/12/16 07:08 36.4 82 16 121/78 95 Room Air 05/12/16 00:45 Room Air 05/11/16 22:50 36.6 75 14 111/73 96 Room Air 05/11/16 15:28 36.4 82 18 132/80 97 Room Air 05/11/16 15:25 Room Air Physical Exam General Appearance: WD/WN, no apparent distress Neck: supple, no adenopathy Respiratory/Chest: lungs clear, normal breath sounds Cardiovascular: no edema, no gallop Abdomen: non tender, soft Neurologic/Psychiatric: alert, normal mood/affect, oriented x 3 Laboratory Results Last 24 Hours Test 05/12/16 10:15 White Blood Count 4.46 K/uL Red Blood Count 4.22 M/uL Hemoglobin 12.9 g/dL Hematocrit 37.1 % Mean Corpuscular Volume 87.9 fL Mean Corpuscular Hemoglobin 30.6 pg Mean Corpuscular Hemoglobin Concent 34.8 g/dl Platelet Count 302 K/uL Mean Platelet Volume 9.3 fL Neutrophils (%) (Auto) 60.1 % Lymphocytes (%) (Auto) 24.7 % Monocytes (%) (Auto) 10.5 % Eosinophils (%) (Auto) 4.0 % Basophils (%) (Auto) 0.7 % Neutrophils # (Auto) 2.68 K/uL Lymphocytes # (Auto) 1.10 K/uL Monocytes # (Auto) 0.47 K/uL Eosinophils # (Auto) 0.18 K/uL Basophils # (Auto) 0.03 K/uL RDW Standard Deviation 43.1 fL RDW Coefficient of Variation 13.5 % Immature Granulocyte % (Auto) 0.0 % Immature Granulocyte # (Auto) 0.00 K/uL Sodium Level 143 mmol/L Potassium Level 4.3 mmol/L Chloride Level 110 mmol/L Carbon Dioxide Level 28 mmol/L Anion Gap 5.0 mmol/L Blood Urea Nitrogen 4 mg/dl Creatinine 0.66 mg/dl Est Creatinine Clear Calc Drug Dose 80.7 ml/min Estimated GFR () 107.4 Estimated GFR (Non- 92.7 BUN/Creatinine Ratio 5.8 Random Glucose 71 mg/dl Calcium Level 9.0 mg/dl Assessment and Plan This patient is a 65-year-old female with a history of small bowel obstruction, GERD, chronic constipation, lumbar spondylosis, and migraines, who presents to the ER with sudden onset of upper abdominal pain and vomiting, found to have small bowel obstruction. SBO-recurrent in with history of several abdominal surgeries, most likely secondary to adhesions. - NGT dced -Pain control and antiemetics -General surgery consultation, conservative measures at this time, start on bowel regimen -Tolerating liquids -IV PPI for history of GERD Chronic constipation-here with acute SBO and nothing by mouth -Hold by mouth Linzess for now DVT prophylaxis-SCDs only in case of need for surgery Disposition-full code
[2016-05-12 15:08] VITALS: BP 121/79; PULSE 82; TEMP 36.7; O2SAT 95
[2016-05-12 22:49] VITALS: BP 126/84; PULSE 83; TEMP 36.4; O2SAT 95
[2016-05-13] MEDS: D5W AND 1/2NSS + 20MEQ KCL 1,000 ML IV SCH ×2 (03:17→12:12)
[2016-05-13 07:29] VITALS: BP 115/76; PULSE 87; TEMP 36.6; O2SAT 97
[2016-05-13] MEDS ORDERED: MAGNESIUM HYDROXIDE SUSP 30 ML UDC PO ONE (07:45)
--- NOTE | 2016-05-13 07:50 | Surgery Progress Note ---
Surgery Progress Note Date of Service May 13, 2016. Subjective + feeling well, + flatus, + pain controlled Patient feeling well- eager to go home. Tolerating clear liquids. Objective Vital Signs: Date Time Temp Pulse Resp B/P Pulse Ox O2 Delivery O2 Flow Rate FiO2 05/13/16 01:03 Room Air 05/12/16 22:49 36.4 83 18 126/84 95 Room Air 05/12/16 17:00 Room Air 05/12/16 15:08 36.7 82 16 121/79 95 Room Air 05/12/16 08:40 Room Air General Appearance: WD/WN, no apparent distress Head: normocephalic, atraumatic Respiratory/Chest: no respiratory distress, no accessory muscle use Abdomen: non tender, soft Laboratory Results: Results Past 24 Hours Test 05/12/16 10:15 Range/Units White Blood Count 4.46 4.8-10.8 K/uL Red Blood Count 4.22 4.2-5.4 M/uL Hemoglobin 12.9 12.0-16.0 g/dL Hematocrit 37.1 37-47 % Mean Corpuscular Volume 87.9 80-100 fL Mean Corpuscular Hemoglobin 30.6 25-34 pg Mean Corpuscular Hemoglobin Concent 34.8 32-36 g/dl Platelet Count 302 130-400 K/uL Mean Platelet Volume 9.3 7.4-10.4 fL Neutrophils (%) (Auto) 60.1 % Lymphocytes (%) (Auto) 24.7 % Monocytes (%) (Auto) 10.5 % Eosinophils (%) (Auto) 4.0 % Basophils (%) (Auto) 0.7 % Neutrophils # (Auto) 2.68 1.4-6.5 K/uL Lymphocytes # (Auto) 1.10 1.2-3.4 K/uL Monocytes # (Auto) 0.47 0.11-0.59 K/uL Eosinophils # (Auto) 0.18 0-0.5 K/uL Basophils # (Auto) 0.03 0-0.2 K/uL RDW Standard Deviation 43.1 36.4-46.3 fL RDW Coefficient of Variation 13.5 11.5-14.5 % Immature Granulocyte % (Auto) 0.0 % Immature Granulocyte # (Auto) 0.00 0.00-0.02 K/uL Sodium Level 143 136-145 mmol/L Potassium Level 4.3 3.5-5.1 mmol/L Chloride Level 110 98-107 mmol/L Carbon Dioxide Level 28 21-32 mmol/L Anion Gap 5.0 3-11 mmol/L Blood Urea Nitrogen 4 7-18 mg/dl Creatinine 0.66 0.60-1.20 mg/dl Est Creatinine Clear Calc Drug Dose 80.7 ml/min Estimated GFR () 107.4 Estimated GFR (Non- 92.7 BUN/Creatinine Ratio 5.8 10-20 Random Glucose 71 70-99 mg/dl Calcium Level 9.0 8.5-10.1 mg/dl Assessment & Plan Reviewed Abdominal X-ray, discussed with patient- moderate to large amount of well-formed stool in colon. Reviewed patient's home diet. Per pt- diet consists of salads and sufficient amount of water daily. Recommend daily stool softener at home. Clear liquids for breakfast, will advance to regular diet for lunch. Once patient has bowel movement, can discharge to home.
[2016-05-13] MEDS ORDERED: MILK AND MOLASSES ENEMA PR ONE (08:30)
[2016-05-13] MEDS: DOCUSATE SODIUM 100 MG CAP PO SCH (10:23)
[2016-05-13] MEDS: POLYETHYLENE (MIRALAX) 17 GM PACK PO SCH (10:23)
[2016-05-13] MEDS: PANTOprazole INJ 40 MG in SYRINGE 0 ML IV SCH (10:23)
[2016-05-13] MEDS ORDERED: MAGNESIUM HYDROXIDE SUSP 30 ML UDC ONE (10:41)
[2016-05-13] MEDS ORDERED: CLC100 PO (14:17)
--- NOTE | 2016-05-13 14:19 | Discharge Instructions ---
Discharge Instructions Date of Service May 13, 2016. Admission Reason for Admission: SBO Discharge Discharge Diagnosis / Problem: small bowel obstruction Discharge Goals Goal(s): Decrease discomfort, Improve function, Increase independence, Improve disease control, Learn about illness, Diagnostic testing Activity Recommendations Activity Limitations: resume your previous activity Exercise/Sports Limitations: none . Instructions / Follow-Up Instructions / Follow-Up Patient to be discharged home Please take new medication dulcolax as directed for constipation Prescription sent to pharmacy If worsening abdominal pain, fevers or chill please report to ER Follow up with Dr Aida Cerda in 1-2 weeks Current Hospital Diet Patient's current hospital diet: Regular Diet Discharge Diet Recommended Diet: Regular Diet Pending Studies Studies pending at discharge: no Medical Emergencies . Who to Call and When: Medical Emergencies: If at any time you feel your situation is an emergency, please call 911 immediately. . Non-Emergent Contact Non-Emergency issues call your: Primary Care Provider Call Non-Emergent contact if: your pain is worsening . . "Provider Documentation" section prepared by Navin Fuller. VTE Core Measure Inpt VTE Proph given/why not?: Treatment not indicated
--- NOTE | 2016-05-13 14:23 | Discharge Summary ---
Discharge Summary Date of Service May 13, 2016. Discharge Summary Admission Date: May 09, 2016 at 18:24 Discharge Date: May 13, 2016 Discharge Disposition: Home Principal Diagnosis: Small bowel obstruction Immunizations: Have You Had Influenza Vaccine: Yes Influenza Vaccine Date: Nov 13, 2012 History of Tetanus Vaccine?: utd History of Pneumococcal: No History of Hepatitis B Vaccine: No Consultations: General surgery Medication Reconciliation New Medications: Docusate Sodium (Docusate Sodium) 100 Mg Cap 100 MG PO BID, #30 CAP Continued Medications: Acetaminophen (Tylenol) 500 Mg Tab 1000 MG PO Q6 PRN for Pain or Fever, TAB Cholecalciferol (Vitamin D) 5,000 Unit Tab 1 TAB PO DAILY Krill Oil (Krill Oil [place]-3) 1 Cap Cap 1 CAP PO DAILY Linaclotide (Linzess) 145 Mcg Cap 145 MCG PO DAILY Omeprazole (Prilosec) 20 Mg Capcr 20 MG PO DAILY, CAP Discharge Exam Review of Systems: Constitutional: No chills, No fever Respiratory: No cough, No dyspnea on exertion, No shortness of breath, No sputum Cardiovascular: No chest pain, No orthopnea Abdomen: + constipation, No diarrhea, No nausea, No pain, No vomiting Musculoskeletal: No joint pain, No muscle pain Genitourinary - Female: No dysuria, No urinary frequency, No urinary urgency Neurologic: No paralysis, No weakness Endocrine: No excessive thirst, No fatigue Integumentary: No itch, No rash Physical Exam: General Appearance: WD/WN, no apparent distress Neck: supple, no adenopathy Respiratory/Chest: lungs clear, normal breath sounds Cardiovascular: no edema, no JVD Abdomen / GI: non tender, soft Neurologic/Psychiatric: alert, oriented x 3 Hospital Course This patient is a 65-year-old female with a history of small bowel obstruction, GERD, chronic constipation, lumbar spondylosis, and migraines, who presents to the ER with sudden onset of upper abdominal pain and vomiting, found to have small bowel obstruction. SBO-recurrent in with history of several abdominal surgeries, most likely secondary to adhesions. -NGT inserted for 2 days, no leukocytosis or fevers -Pain control and antiemetics -General surgery consultation, conservative measures at this time, start on bowel regimen -Advanced diet, discharged on dulcolax DVT prophylaxis-SCDs only in case of need for surgery Disposition-full code Total Time Spent: Greater than 30 minutes This includes examination of the patient, discharge planning, medication reconciliation, and communication with other providers. Discharge Instructions Please refer to the electronic Patient Visit Report (Discharge Instructions) for additional information. Additional Copies To Zack Cerda D.O.
[2016-05-13 16:04] VITALS: BP 115/76; PULSE 87; TEMP 36.6; O2SAT 97
== END 2016-05-13 16:15 | disposition home or self-care (01) | DRG 390 ==
LOC: ENRESERVDT → ENRESERVTM → C.EDB 14:46 → C.MSW 18:24
PROVIDERS: ADMIT Family Medicine; ATTEND Hospitalist
DX: K56.5 Intestinal adhesions [bands] with obstruction (postinfection) (principal); K21.9 Gastro-esophageal reflux disease without esophagitis; K59.00 Constipation, unspecified; M47.896 Other spondylosis, lumbar region; G43.909 Migraine, unspecified, not intractable, without status migrainosus; Z78.0 Asymptomatic menopausal state; Z82.49 Family history of ischemic heart disease and other diseases of the circulatory system; Z83.3 Family history of diabetes mellitus; Z80.8 Family history of malignant neoplasm of other organs or systems

== ENCOUNTER → 2017-05-19 | Day surgery (SDC) | payer OTHER ==
[~2017-05-19] VITALS: Ht 160 cm; Wt 78.1 kg
[~2017-05-19] MED LIST changes: +CHOL1TAB42 PO; +CLC100 PO; +KRIL1CAP7 PO; +LIDOCAINE HCL 2% 2 ML VIAL (20MG/ML) ONE; +MIDAZOLAM HCL 1 MG/ML 2ML VIAL ONE; +ONDANSETRON INJ 2 MG/ML 2 ML VIAL ONE; +PROPOFOL IV EMULSION 10 MG/ML 20 ML VIAL IV ONE; +PSEU60TA26 PO
[2017-05-19 07:49] VITALS: Ht 160 cm; Wt 78.1 kg
--- NOTE | 2017-05-19 08:32 | DIAGNOSTIC IMAGING REPORT ---
CHEST ONE VIEW PORTABLE CLINICAL HISTORY: 66 years-old Female presenting with swallowed pseudophed w/ sharp plastic wrapper. pain mid chest . TECHNIQUE: Portable upright AP view of the chest was obtained. COMPARISON: 05/12/2016. FINDINGS: Cardiomediastinal silhouette normal. No focal opacity. No large effusion or pneumothorax. Osseous structures normal. Cholecystectomy clips noted. No radiopaque foreign body. IMPRESSION: 1. No acute cardiopulmonary disease. No radiopaque foreign body. Electronically signed by: Ward Elizabeth M.D. 05/19/2017 8:30 AM Dictated Date/Time: 05/19/2017 8:30 AM
[2017-05-19 08:33] LABS: BASO % 0.8 %; BASO ABS # 0.04 K/uL (0-0.2); EOS % 1.4 %; EOS ABS # 0.07 K/uL (0-0.5); HEMATOCRIT 38.4 % (37-47); HEMOGLOBIN 13.3 g/dL (12.0-16.0); IG# 0.01 K/uL (0.00-0.02); LYMPH % 11.9 %; LYMPH ABS # 0.58 K/uL (1.2-3.4); MEAN CELL VOLUME 88.9 fL (80-100); MEAN CORPUSCULAR HEMOGLOBIN 30.8 pg (25-34); MEAN CORPUSCULAR HGB CONC 34.6 g/dl (32-36); MONO % 5.7 %; MONO ABS # 0.28 K/uL (0.11-0.59); PLATELET COUNT 306 K/uL (130-400); RED CELL DISTRIBUTION WIDTH CV 13.6 % (11.5-14.5); WHITE BLOOD COUNT 4.88 K/uL (4.8-10.8)
--- NOTE | 2017-05-19 08:34 | DIAGNOSTIC IMAGING REPORT ---
KUB HISTORY: swallowed pseudophed w/ sharp plastic wrapper. pain mid chest COMPARISON: Chest and abdominal series 05/12/2016. FINDINGS: The bowel gas pattern is unremarkable. There are no dilated loops of small bowel to suggest an obstruction. No renal calculi. No ureteral calculi. Calcifications in the deep pelvis likely represent phleboliths. Surgical clips within the deep pelvis and right upper quadrant. No additional radiopaque foreign bodies. Cholecystectomy. No pneumoperitoneum or pneumatosis. IMPRESSION: No suspicious radiopaque foreign bodies identified within the abdomen or pelvis. The bowel gas pattern is unremarkable. Electronically signed by: Zhang Vaughn M.D. 05/19/2017 8:33 AM Dictated Date/Time: 05/19/2017 8:32 AM
[2017-05-19 08:52] LABS: ALBUMIN 3.5 gm/dl (3.4-5.0); ALT/SGPT 56 U/L (12-78); BLOOD UREA NITROGEN 15 mg/dl (7-18); CALCIUM 9.2 mg/dl (8.5-10.1); CARBON DIOXIDE 25 mmol/L (21-32); CREATININE 0.72 mg/dl (0.60-1.20); GLUCOSE 120 mg/dl (70-99); POTASSIUM 3.8 mmol/L (3.5-5.1); SODIUM 139 mmol/L (136-145)
[2017-05-19 08:55] LABS: ALKALINE PHOSPHATASE 103 U/L (45-117); AST/SGOT 76 U/L (15-37); TOTAL PROTEIN 7.2 gm/dl (6.4-8.2)
--- NOTE | 2017-05-19 09:48 | Gastrointestinal Consultation ---
Gastrointestinal Consultation Date of Consultation: May 19, 2017 Attending Physician: Aly Consulting Physician: Fernando Reason for Consultation: odynophagia, swallowed pill in packaging History of Present Illness Patient is a 66 year old female w/ history below who presents to the ED for foreign body sensation and odynophagia since swallowing a pill in packaging this AM. Pt notes that she was congested, went to take tylenol and sudafed only to realize the sharp foil and plastic wrapping. Since swallowing noted she felt terrible pain in her esophagus as well as foreign body sensation at the epigastric region. No nausea, vomiting. Is tolerating secretions. Did try to induce vomiting but was not successful. No abd pain, black, bloody stools. She is hypertensive, tachycardiac, felt to be situational. Labs and x-ray unremarkable. Past Medical/Surgical History Medical Problems: (1) Nausea & vomiting Status: Acute (2) Small bowel obstruction Status: Acute Past Medical History: recurrent SBO, GERD, chronic constipation, kidney disease, migraines, lumbar spondylosis Past Surgical History: EGD Colon Ex-lap Appendectomy Cholecystectomy Rotator cuff surgery-right Tonsillectomy Bilateral tubal ligation Family History Cancer Diabetes mellitus FH: thyroid disease FHx: asthma FHx: epilepsy FHx: heart disease Hypertension Lung disease Social History Smoking Status: Never Smoker Alcohol Use: none Drug Use: none Marital Status: Housing Status: lives with family Occupation Status: retired Allergies Coded Allergies: Corticosteroids (Verified Allergy, Unknown, RASH/NERVOUSNESS, 05/19/17) Current Medications Home Meds and Scripts Medications Dose Route/Sig Max Daily Dose Days Date Category Pseudoephedrine Hcl 60 Mg Tab 60 Mg PO Q6 PRN 05/19/17 Reported Krill Oil Stephenson-3 (Krill Oil) 1 Cap Cap 1 Cap PO DAILY 05/09/16 Reported Tylenol (Acetaminophen) 500 Mg Tab 1,000 Mg PO Q6 PRN 09/23/14 Reported Prilosec (Omeprazole) 20 Mg Capcr 20 Mg PO DAILY 03/16/13 Reported Linzess (Linaclotide) 145 Mcg Cap 145 Mcg PO DAILY 03/16/13 Reported Review of Systems Constitutional: No fever, No chills Respiratory: No cough, No shortness of breath Cardiac: No chest pain Abdomen: + pain, + odynophagia, No nausea, No vomiting, No diarrhea, No constipation, No GI bleeding, No dysphagia Skin: No rash Physical Exam Date Time Temp Pulse Resp B/P (MAP) Pulse Ox O2 Delivery O2 Flow Rate FiO2 05/19/17 07:49 36.8 97 18 174/111 98 Room Air General Appearance: no apparent distress Eyes: PERRL Neck: supple, trachea midline Respiratory/Chest: lungs clear, normal breath sounds, no respiratory distress, no accessory muscle use Cardiovascular: regular rate, rhythm, no edema, no gallop, no JVD Abdomen: normal bowel sounds, non tender, soft, no organomegaly Neurologic/Psych: alert, normal mood/affect, oriented x 3 Skin: normal color, no jaundice, warm/dry, no rash Laboratory Results Last 24 Hours Test 05/19/17 08:26 White Blood Count 4.88 K/uL Red Blood Count 4.32 M/uL Hemoglobin 13.3 g/dL Hematocrit 38.4 % Mean Corpuscular Volume 88.9 fL Mean Corpuscular Hemoglobin 30.8 pg Mean Corpuscular Hemoglobin Concent 34.6 g/dl Platelet Count 306 K/uL Mean Platelet Volume 9.0 fL Neutrophils (%) (Auto) 80.0 % Lymphocytes (%) (Auto) 11.9 % Monocytes (%) (Auto) 5.7 % Eosinophils (%) (Auto) 1.4 % Basophils (%) (Auto) 0.8 % Neutrophils # (Auto) 3.90 K/uL Lymphocytes # (Auto) 0.58 K/uL Monocytes # (Auto) 0.28 K/uL Eosinophils # (Auto) 0.07 K/uL Basophils # (Auto) 0.04 K/uL RDW Standard Deviation 45.0 fL RDW Coefficient of Variation 13.6 % Immature Granulocyte % (Auto) 0.2 % Immature Granulocyte # (Auto) 0.01 K/uL Sodium Level 139 mmol/L Potassium Level 3.8 mmol/L Chloride Level 108 mmol/L Carbon Dioxide Level 25 mmol/L Anion Gap 6.0 mmol/L Blood Urea Nitrogen 15 mg/dl Creatinine 0.72 mg/dl Est Creatinine Clear Calc Drug Dose 76.0 ml/min Estimated GFR () 101.1 Estimated GFR (Non- 87.3 BUN/Creatinine Ratio 21.3 Random Glucose 120 mg/dl Calcium Level 9.2 mg/dl Total Bilirubin 0.5 mg/dl Direct Bilirubin < 0.1 mg/dl Aspartate Amino Transf (AST/SGOT) 76 U/L Alanine Aminotransferase (ALT/SGPT) 56 U/L Alkaline Phosphatase 103 U/L Total Protein 7.2 gm/dl Albumin 3.5 gm/dl Impression Patient is a 66 year old female w/ odynophagia and sensation of foreign body since 5:30 am when she took a capsule w/ the plastic/foil wrapping intact. Hypertensive, otherwise VSS, chest XR negative. Concern for esophagitis, retained packaging etc Plan NPO EGD today w/ possible discharge home after EGD I performed a history and physical examination of the patient. I have discussed the patient's case, impression and plan with SLY Abraham. Her note reflects my findings and plan. Agree with EGD to clear esophagus and rule out retained packaging. Raul King MD
[2017-05-19 11:01] VITALS: O2SAT 98
--- NOTE | 2017-05-19 12:15 | GI REPORT ---
Procedure Date: 05/19/2017 11:51 AM Procedure: Upper GI endoscopy Indications: Dysphagia, Odynophagia Medicines: See the Anesthesia note for documentation of the administered medications Complications: No immediate complications. Estimated Blood Loss: Estimated blood loss: none. Procedure: Pre-Anesthesia Assessment: - Prior to the procedure, a History and Physical was performed, and patient medications, allergies and sensitivities were reviewed. The patient's tolerance of previous anesthesia was reviewed. - The risks and benefits of the procedure and the sedation options and risks were discussed with the patient. All questions were answered and informed consent was obtained. - Patient identification and proposed procedure were verified prior to the procedure by the physician and the nurse. The procedure was verified in the pre-procedure area. - Pre-procedure physical examination revealed no contraindications to sedation. - After reviewing the risks and benefits, the patient was deemed in satisfactory condition to undergo the procedure. After obtaining informed consent, the endoscope was passed under direct vision. Throughout the procedure, the patient's blood pressure, pulse, and oxygen saturations were monitored continuously. The scope was introduced through the mouth, and advanced to the second part of duodenum. The upper GI endoscopy was accomplished without difficulty. The patient tolerated the procedure well. Findings: Pill in foil packaging was found in the middle third of the esophagus. Removal was accomplished with a Callahan net per os. No biopsies or other specimens were collected for this exam. The stomach was normal. The examined duodenum was normal. The cardia and gastric fundus were normal on retroflexion. Impression: - Pill in foil packaging was found in the esophagus. Removal was successful. A small amount of esophageal irritation was noted. - Normal stomach. - Normal examined duodenum. Recommendation: - Discharge patient to home. Raul King M.D. Raul King MD 05/19/2017 12:14:25 PM This report has been signed electronically. Note Initiated On: 05/19/2017 11:51 AM I attest to the content of the Intraoperative Record and orders documented therein, exceptions below
--- NOTE | 2017-05-19 12:15 | Discharge Instructions ---
Endoscopy Patient Instructions Date / Procedure(s) Performed May 19, 2017. EGD Allergy Information Coded Allergies: Corticosteroids (Verified Allergy, Unknown, RASH/NERVOUSNESS, 05/19/17) Discharge Date / Findings May 19, 2017. pill in wrapper sheeter removed without incident. Provider Instructions Activity Restrictions - No exercising or heavy lifting for 24 hours. - Do not drink alcohol the day of the procedure. - Do not drive a car or operate machinery until the day after the procedure. - Do not make any important decisions or sign important papers in 24 hours after the procedure. Following Day: - Return to full activity which may include returning to work/school. Diet Start your diet with liquids and light foods (jello, soup, juice, toast). Then eat your usual diet if not nauseated. Treatment For Common After Affects For mild abdominal pain, bloating, or excessive gas: - Rest - Eat lightly - Lie on right side Follow-Up Information Follow-up with as scheduled Anesthesia Information What You Should Know You have had a procedure that required some medicine to reduce anxiety and discomfort. This treatment is called moderate sedation. After receiving the treatment, you may be sleepy, but you will be able to breathe on your own. The effects of the treatment may last for several hours. Follow these instructions along with Activity/Diet recommendations noted above: * Do NOT do anything where dizziness or clumsiness would be dangerous. * Rest quietly at home today, then you can be up and about tomorrow. * Have a responsible person stay with you the rest of today. * You may have had an I.V. today. If so, you may take the dressing off later today. Recommendations Call your doctor if: * Trouble breathing * Continuous vomiting for more than 24 hours * Temperature above 101 degrees * Severe abdominal pain or bloating * Pain not relieved by pain medicine ordered * There is increased drainage or redness from any incision * A large amount of rectal bleeding greater than 2-3 tablespoons. (If you had a polyp/s removed or have hemorrhoids, a small amount of blood - from the rectum is to be expected.) * You have any unanswered questions or concerns. IN THE EVENT OF A SERIOUS EMERGENCY, GO TO THE NEAREST EMERGENCY ROOM Your discharge instructions were prepared by provider Raul King. Patient Instructions Signature Page Nadine All Patient (or Guardian) Signature/Date: I have read and understand the instructions given to me by my caregivers. Caregiver/RN/Doctor Signature/Date: The above-named patient and/or guardian has received patient instructions on this date. + Original Patient Signature Page (only) stays with chart. Please make copy for patient.
--- NOTE | 2017-05-19 12:26 | Anesthesiology Progress Note ---
Anesthesia Post Op Note Date & Time May 19, 2017 at 12:26 Vital Signs Pain Intensity: 0 Vital Signs Past 12 Hours Date Time Temp Pulse Resp B/P (MAP) Pulse Ox O2 Delivery O2 Flow Rate FiO2 05/19/17 12:13 75 16 99/57 (71) 99 Room Air 05/19/17 11:14 36.8 88 20 129/90 (103) 97 Room Air 05/19/17 11:01 70 18 147/112 98 Room Air 05/19/17 09:44 100 17 163/101 98 Room Air 05/19/17 07:49 36.8 97 18 174/111 98 Room Air Notes Mental Status: alert / awake / arousable, participated in evaluation Pt Amnestic to Procedure: Yes Nausea / Vomiting: adequately controlled Pain: adequately controlled Airway Patency, RR, SpO2: stable & adequate BP & HR: stable & adequate Hydration State: stable & adequate Anesthetic Complications: no major complications apparent
[2017-05-19 12:46] VITALS: BP 146/99; PULSE 78; TEMP 36.8; O2SAT 100
--- NOTE | 2017-05-19 14:27 | EMERGENCY ROOM VISIT NOTE ---
History Report prepared by Lizzyibkarley: Anthony Durán Under the Supervision of: Dr. Antonio Lu D.O. First contact with patient: 07:54 Chief Complaint: OTHER COMPLAINT Stated Complaint: TOOK PILL WITH WRAPPER History of Present Illness The patient is a 66 year old female who presents to the Emergency Room after swallowing a pill with a wrapper on it. She states that she took Tylenol and Sudafed 1.5 hours ago. She states that the Sudafed still had the plastic wrapper on it. The patient also complains of some mild chest pain and states " it feels like it's stuck". Pain is constant in nature and unremitting. She has been able to swallow her saliva without vomiting, but has not tried eating or drinking anything since. Swallowing makes the pain worse. No other remitting factors. She notes that she took the Sudafed for a sore throat and post-nasal drip. The patient has attempted to make herself vomit, but it has not worked and nothing has improved her foreign body sensation. Pt denies headache, cough, ear pain, fevers, shortness of breath, abdominal pain, nausea, diarrhea, pain with urination, and melena. Source of History: patient Onset: 1.5 hours ago Quality: other (swallowed Sudafed with plastic wrapper) Timing: other (episode) Modifying Factors (Relieving): other (none) Associated Symptoms: + sorethroat, + chest pain, No fevers, No headache, No SOB, No nausea, No vomiting, No abdominal pain, No melena, No diarrhea, No urinary symptoms Review of Systems See HPI for pertinent positives & negatives. A total of 10 systems reviewed and were otherwise negative. Past Medical & Surgical Medical Problems: (1) Migraine (2) SBO (small bowel obstruction) Surgical Problems: (1) Hx of appendectomy (2) Hx of cholecystectomy (3) S/P rotator cuff surgery (4) S/P tonsillectomy (5) S/P tonsillectomy and adenoidectomy (6) S/P tubal ligation Family History Cancer Diabetes mellitus FH: thyroid disease FHx: asthma FHx: epilepsy FHx: heart disease Hypertension Lung disease Social History Smoking Status: Never Smoker Alcohol Use: none Drug Use: none Marital Status: Housing Status: lives with family Occupation Status: retired Current/Historical Medications Scheduled Krill Oil (Krill Oil Oxford-3), 1 CAP PO DAILY Linaclotide (Linzess), 145 MCG PO DAILY Omeprazole (Prilosec), 20 MG PO DAILY Scheduled PRN Acetaminophen (Tylenol), 1,000 MG PO Q6 PRN for Pain or Fever Pseudoephedrine Hcl (Pseudoephedrine Hcl), 60 MG PO Q6 PRN for Nasal Congestion Allergies Coded Allergies: Corticosteroids (Verified Allergy, Unknown, RASH/NERVOUSNESS, 05/19/17) Physical Exam Vital Signs Date Time Temp Pulse Resp B/P (MAP) Pulse Ox O2 Delivery O2 Flow Rate FiO2 05/19/17 11:14 36.8 88 20 129/90 (103) 97 Room Air 05/19/17 11:01 70 18 147/112 98 Room Air 05/19/17 09:44 100 17 163/101 98 Room Air 05/19/17 07:49 36.8 97 18 174/111 98 Room Air Physical Exam GENERAL: Sitting up in bed, alert, well appearing, well nourished, no distress, non-toxic EYE EXAM: normal conjunctiva. OROPHARYNX: no exudate, no erythema, lips, buccal mucosa, and tongue normal and mucous membranes are moist NECK: supple, no nuchal rigidity, no adenopathy, non-tender LUNGS: Clear to auscultation. Normal chest wall mechanics HEART: no murmurs, S1 normal and S2 normal ABDOMEN: abdomen soft, non-tender, normo-active bowel sounds, no masses, no rebound or guarding. BACK: Back is symmetrical on inspection and there is no deformity, no midline tenderness, no CVA tenderness. SKIN: no rashes and no bruising UPPER EXTREMITIES: upper extremities are grossly normal. LOWER EXTREMITIES: No pitting edema. NEURO EXAM: Normal sensorium, cranial nerves II-XII grossly intact, normal speech, no gross weakness of arms, no gross weakness of legs. Medical Decision & Procedures ER Provider Diagnostic Interpretation: Radiology results as stated below per my review and the radiologist's interpretation: KUB FINDINGS: The bowel gas pattern is unremarkable. There are no dilated loops of small bowel to suggest an obstruction. No renal calculi. No ureteral calculi. Calcifications in the deep pelvis likely represent phleboliths. Surgical clips within the deep pelvis and right upper quadrant. No additional radiopaque foreign bodies. Cholecystectomy. No pneumoperitoneum or pneumatosis. IMPRESSION: No suspicious radiopaque foreign bodies identified within the abdomen or pelvis. The bowel gas pattern is unremarkable. Electronically signed by: Zhang Vaughn M.D. 05/19/2017 8:33 AM CHEST ONE VIEW PORTABLE FINDINGS: Cardiomediastinal silhouette normal. No focal opacity. No large effusion or pneumothorax. Osseous structures normal. Cholecystectomy clips noted. No radiopaque foreign body. IMPRESSION: 1. No acute cardiopulmonary disease. No radiopaque foreign body. Electronically signed by: Ward Elizabeth M.D. 05/19/2017 8:30 AM Laboratory Results 05/19/17 08:26 Red Blood Count 4.32, Mean Corpuscular Volume 88.9, Mean Corpuscular Hemoglobin 30.8, Mean Corpuscular Hemoglobin Concent 34.6, Mean Platelet Volume 9.0, Neutrophils (%) (Auto) 80.0, Lymphocytes (%) (Auto) 11.9, Monocytes (%) (Auto) 5.7, Eosinophils (%) (Auto) 1.4, Basophils (%) (Auto) 0.8, Neutrophils # (Auto) 3.90, Lymphocytes # (Auto) 0.58, Monocytes # (Auto) 0.28, Eosinophils # (Auto) 0.07, Basophils # (Auto) 0.04 05/19/17 08:26 Test 05/19/17 08:26 White Blood Count 4.88 K/uL (4.8-10.8) Red Blood Count 4.32 M/uL (4.2-5.4) Hemoglobin 13.3 g/dL (12.0-16.0) Hematocrit 38.4 % (37-47) Mean Corpuscular Volume 88.9 fL (80-100) Mean Corpuscular Hemoglobin 30.8 pg (25-34) Mean Corpuscular Hemoglobin Concent 34.6 g/dl (32-36) Platelet Count 306 K/uL (130-400) Mean Platelet Volume 9.0 fL (7.4-10.4) Neutrophils (%) (Auto) 80.0 % Lymphocytes (%) (Auto) 11.9 % Monocytes (%) (Auto) 5.7 % Eosinophils (%) (Auto) 1.4 % Basophils (%) (Auto) 0.8 % Neutrophils # (Auto) 3.90 K/uL (1.4-6.5) Lymphocytes # (Auto) 0.58 K/uL (1.2-3.4) Monocytes # (Auto) 0.28 K/uL (0.11-0.59) Eosinophils # (Auto) 0.07 K/uL (0-0.5) Basophils # (Auto) 0.04 K/uL (0-0.2) RDW Standard Deviation 45.0 fL (36.4-46.3) RDW Coefficient of Variation 13.6 % (11.5-14.5) Immature Granulocyte % (Auto) 0.2 % Immature Granulocyte # (Auto) 0.01 K/uL (0.00-0.02) Anion Gap 6.0 mmol/L (3-11) Est Creatinine Clear Calc Drug Dose 76.0 ml/min Estimated GFR () 101.1 Estimated GFR (Non- 87.3 BUN/Creatinine Ratio 21.3 (10-20) Calcium Level 9.2 mg/dl (8.5-10.1) Total Bilirubin 0.5 mg/dl (0.2-1) Direct Bilirubin < 0.1 mg/dl (0-0.2) Aspartate Amino Transf (AST/SGOT) 76 U/L (15-37) Alanine Aminotransferase (ALT/SGPT) 56 U/L (12-78) Alkaline Phosphatase 103 U/L (45-117) Total Protein 7.2 gm/dl (6.4-8.2) Albumin 3.5 gm/dl (3.4-5.0) Laboratory results per my review. ED Course ED COURSE: Vital signs were reviewed and showed hypertension. The patients medical record was reviewed The above diagnostic studies were performed and reviewed. ED treatments and interventions as stated above. 0800: The patient was evaluated in room A3. A complete history and physical examination was performed. 0954: I spoke with Corina [facility] at bedside. The patient will be taken to the endoscopy suite. 1002: Upon reevaluation, the patient is resting comfortably. I discussed my findings with the patient and she understands and agrees with the treatment plan. Based on the patients age, coexisting illnesses, exam and lab findings the decision to treat as an inpatient was made. The patient remained stable while under my care. The patient will be evaluated for further management. Medical Decision Differential diagnoses includes but is not limited to esophageal foreign body, acute coronary syndrome, myocardial infarction, pericarditis, pulmonary embolus , aortic dissection, pneumonia, pneumothorax, musculoskeletal, shingles, esophageal. Patient is a 66-year-old female who presents the ER for swallowing a Sudafed capsule which was encased in the wrapper. She notes as soon as she swallowed it she felt it get stuck in her throat. She has been unable to eat or drink since then. Labs including CBC and BMP were unremarkable. Chest x-ray and KUB were unremarkable as well. Discussed with GI. She was taken to the Endo suite where the pill was removed from the esophagus. Medication Reconcilliation Current Medication List: was personally reviewed by me Blood Pressure Screening Patient's blood pressure: Elevated blood pressure Blood pressure disposition: Elevated BP felt to be situational Consults Time Called: [phone] Consulting Physician: [facility] - GI Returned Call: [phone] I reviewed the patient's case with [facility]. She will evaluate the patient in the ED. 0954: The patient will be evaluated for further management. Impression Primary Impression: Esophageal foreign body Scribe Attestation The scribe's documentation has been prepared under my direction and personally reviewed by me in its entirety. I confirm that the note above accurately reflects all work, treatment, procedures, and medical decision making performed by me. Departure Information Dispostion Being Evaluated By Surgeon (Endoscopy suite) Referrals No Doctor, Assigned (PCP) Patient Instructions [facility] Problem Qualifiers Primary Impression: Esophageal foreign body Encounter type: initial encounter Qualified Codes: T18.108A - Unspecified foreign body in esophagus causing other injury, initial encounter
== END | disposition home or self-care (01) ==
LOC: C.EDB 07:45 → C.GI 11:19
PROVIDERS: ATTEND Internal Medicine Gastroenterology
DX: T18.108A Unspecified foreign body in esophagus causing other injury, initial encounter (principal); X58.XXXA Exposure to other specified factors, initial encounter; K21.9 Gastro-esophageal reflux disease without esophagitis; Z83.3 Family history of diabetes mellitus; Z84.89 Family history of other specified conditions; Z82.5 Family history of asthma and other chronic lower respiratory diseases; Z82.0 Family history of epilepsy and other diseases of the nervous system; Z82.49 Family history of ischemic heart disease and other diseases of the circulatory system; Z83.6 Family history of other diseases of the respiratory system; Z79.899 Other long term (current) drug therapy; Z88.8 Allergy status to other drugs, medicaments and biological substances

== ENCOUNTER 2019-01-23 02:36 | Inpatient (IN) ==
[2019-01-23] MEDS ORDERED: fentaNYL citrate 100 MCG/2 ML VIAL IV STA ×2 (02:55→04:22)
[2019-01-23] MEDS ORDERED: SODIUM CHLORIDE 0.9% 1000ML 1,000 ML IV ONE (02:55)
[2019-01-23] MEDS ORDERED: ONDANSETRON INJ 2 MG/ML 2 ML VIAL IV STA (02:55)
--- NOTE | 2019-01-23 02:59 | Emergency Department Note ---
ED Provider Note Name: PRAMOD STEARNS Age: 68 Arrives Via: Walk-In Informant: Patient, CC: abdominal pain HPI: 68F arrives for evaluation of abdominal pain. Notes rapidly worsening stabbing abdominal pain mid/epigastric abdomen radiating to entire abdomen and back. Worse with movement, better with rest. Associated nausea. No vomiting, fevers, chills, syncope, headache, neck pain, sob, cp, rashes, urinary symptoms, bowel changes, leg swelling, nor other symptoms. Motrin yesterday for joint a ches but no other new medications. History of multiple abdominal surgeries with previous SBOs, most recent obstructions 1.5 years ago treated conservatively. She denies traumas, falls, injuries ROS: See above HPI for pertinent positives & negatives. A total of 10 systems reviewed and were otherwise negative. Past Medical History:SBO, Migraines, Gerd, constipation Past Surgical History:Tonsillectomy, appendectomy, cholecystectomy, laporoscopy Family History:CA, DMII, Thyroid, Asthma, CAD, HTN, Lung disease, epilepsy Social History:Lives with , nonsmoker, , no drug use, no etoh use, retired Home Medications:see below Allergies:glucocorticoids Vitals:BP 143/86, P 84, R 22, T 36.4, O2 93% RA Physical Exam: GENERAL: Patient is very uncomfortable appearing and in moderate distress. EYES: No scleral icterus, unremarkable pupils. ENT: Mucous membranes moist, no nasal congestion. NECK: No masses appreciated, nomeningismus, trachea is midline. RESPIRATORY: No dyspnea. Clear to auscultation and equal bilaterally. No wheeze, no rhonchi. CARDIOVASCULAR: Regular rate and rhythm.No murmurs, rubs, gallops appreciated. GASTROINTESTINAL: Mildly distended with hyperactive bowel sounds. Mild TTP over upper abdomen. BACK: No midline tenderness, no CVA tenderness EXTREMITIES: Normal motion all extremities, no cyanosis, no edema. NEUROLOGIC: Alert and oriented, no acute motor or sensory deficits, no focal weakness, cranial nerves grossly intact. SKIN: No rash, no jaundice, no diaphoresis. ED Course: Prior Medical Record, Triage/Nursing Notes, Medications, Allergies reviewed by Me Vital Signs: reviewed and remarkable for wnl Labs:Reviewed and remarkable for no significant abnormalities Interventions: Saline lock, fentanyl 50mcg IV x 2, Zofran 4mg IV, NSS bolus Imaging:[facility] Radiologist interpretation reviewed by me: SBO with transition right pelvis small free fluid some mesenteric edema noted Consults:Dr Underwood advised NG tube, Lactic acid and hospitalist evaluation. Dr Van to admit Reassessments/Times: Multiple, feeling better with NG tube and Fentanyl Blood pressure:Normal.No Referral necessary Disposition:Hospitalization Differentials:SBO, Perf, GERD, Pancreatitis, Ischemia, ACS, amongst other pathologies. Medical Decision Makin yr old female with multiple previous abdominal surgeries and previous SBO's arrives with diffuse upper abdominal pain to back. Nausea controlled along with pain. CT with obstruction and some mesenteric edema. Reviewed with gen surg who agree with ng tube. Lactic acid looking OK. Hospitalist on board with plan. Patient stable throughout and comfortable after meds. Impression: Small Bowel Obstruction Niels Nava MD Impression & Plan SBO (small bowel obstruction) Past Med/Surg History Social History Preferred Language: Wolof Communication Ability: Effective Nib Inspector Required: No Beliefs That Will Affect Care: None Current Living Situation: Spouse Other Information That Helps Us Care for You: No Feels Safe at Home: Yes Safety Concerns: Feels Safe At This Time Smoking Status: Never smoker Do You Dip or Chew Tobacco: No ; Hx Alcohol Use: No Hx Substance Use: No Results & Data Vital Signs Vital Signs - 24 hr 01/23/19 02:41 01/23/19 03:36 Temperature 36.4 C L Temperature Source Oral Pulse Rate 84 Pulse Rate [Left Finger] 80 Pulse Rhythm Regular Respiratory Rate 22 16 Respiratory Depth Normal Blood Pressure 143/86 H Blood Pressure [Right Arm] 124/81 Blood Pressure Mean 105 Blood Pressure Mean [Right Arm] 95 Blood Pressure Position [Right Arm] Sitting Pulse Oximetry 93 95 Oxygen Delivery Method Room Air Room Air Sepsis Recent Fever Within 48 Hours No Sepsis Action Taken by Nursing No Action Required Laboratory Data Result diagrams: 01/23/19 02:56 01/23/19 02:56 Lab Results 01/23/19 01/23/19 Range/Units 02:56 02:56 WBC 9.13 (4.8-10.8) K/uL RBC 4.53 (4.2-5.4) M/uL Hgb 13.9 (12.0-16.0) g/dL Hct 40.6 (37-47) % MCV 89.6 (80-100) fL MCH 30.7 (25-34) pg MCHC 34.2 (32-36) g/dL RDW Std Deviation 44.8 (36.4-46.3) fL RDW Coeff of Andrea 13.7 (11.5-14.5) % Plt Count 404 H (130-400) K/uL MPV 9.6 (7.4-10.4) fL Immature Gran % (Auto) 0.1 % Neut % (Auto) 77.6 % Lymph % (Auto) 13.7 % [place] % (Auto) 6.2 % Eos % (Auto) 2.0 % Baso % (Auto) 0.4 % Immature Gran # (Auto) 0.01 (0.00-0.02) K/uL Neut # (Auto) 7.08 H (1.4-6.5) K/uL Lymph # (Auto) 1.25 (1.2-3.4) K/uL [place] # (Auto) 0.57 (0.11-0.59) K/uL Eos # (Auto) 0.18 (0-0.5) K/uL Baso # (Auto) 0.04 (0-0.2) K/uL Sodium 138 (136-145) mmol/L Potassium 4.0 (3.5-5.1) mmol/L Chloride 105 (98-107) mmol/L Carbon Dioxide 28 (21-32) mmol/L Anion Gap 5.0 (3-11) BUN 22 H (7-18) mg/dl Creatinine 0.89 (0.6-1.2) mg/dl Est Cr Clr Drug Dosing 58.6 ml/min Est GFR ( Amer) 77.2 Est GFR (Non-Af Amer) 66.6 BUN/Creatinine Ratio 24.5 H (10-20) Glucose 124 H (70-99) mg/dl Calcium 9.2 (8.5-10.1) mg/dl Total Bilirubin 0.4 (0.2-1) mg/dl Direct Bilirubin < 0.1 (0-0.2) mg/dl AST 19 (15-37) U/L ALT 41 (12-78) U/L Alkaline Phosphatase 115 (45-117) U/L Total Protein 7.7 (6.4-8.2) gm/dl Albumin 3.5 (3.4-5.0) gm/dl Lipase 99 (73-393) U/L Administered Medications Hydromorphone HCl (Dilaudid) 0.5 mg IV Q3H PRN PRN Reason: Pain Stop: 02/06/19 06:04 Last Admin: 01/23/19 06:14 Dose: 0.5 mg Documented by: [id number] Dextrose/Sodium Chloride (D5w And Nss) 1,000 mls @ 125 mls/hr IV .Q8H BRETT Stop: 02/22/19 06:04 Last Admin: 01/23/19 06:16 Dose: 125 mls/hr Documented by: [id number] Discontinued Medications Fentanyl Citrate (Fentanyl Citrate) 50 mcg IV NOW STA Stop: 01/23/19 02:56 Last Admin: 01/23/19 03:06 Dose: 50 mcg Documented by: [id number] Fentanyl Citrate (Fentanyl Citrate) 50 mcg IV NOW STA Stop: 01/23/19 04:23 Last Admin: 01/23/19 04:46 Dose: 50 mcg Documented by: [id number] Sodium Chloride (Nss 1000ml) 1,000 mls @ 999 mls/hr IV .Q1H1M ONE Stop: 01/23/19 03:55 Last Infusion: 01/23/19 04:48 Dose: 0 mls/hr Documented by: [id number] Admin: 01/23/19 03:04 Dose: 999 mls/hr Documented by: [id number] Sodium Chloride (Nss 1000ml) 1,000 mls @ 125 mls/hr IV .Q8H [facility] Stop: 02/22/19 04:29 Last Admin: 01/23/19 04:47 Dose: 125 mls/hr Documented by: [id number] Ondansetron HCl (Zofran) 4 mg IV NOW STA Stop: 01/23/19 02:56 Last Admin: 01/23/19 03:06 Dose: 4 mg Documented by: [id number] Discharge Plan Visit Data *Final* Discharge Date/Time: 01/23/19 05:37 Chief Complaint: Abdominal Pain Stated Complaint: STOMACH,CHEST,BACK PAIN,PRONE TO BLOCKAGES ED Provider: Niels Nava Discharge Problem: SBO (small bowel obstruction) Patient Disposition: Admitted As Inpatient Discharge Instructions Interventions: ED Discharge Assessment Last Done: 01/23/19 05:37
[2019-01-23 03:12] LABS: Basophils # (auto) 0.04 K/uL (0-0.2); Basophils % (auto) 0.4 %; Eosinophils # (auto) 0.18 K/uL (0-0.5); Hematocrit (blood only) 40.6 % (37-47); Hemoglobin 13.9 g/dL (12.0-16.0); Immature Granulocytes # (auto) 0.01 K/uL (0.00-0.02); Immature Granulocytes % (auto) 0.1 %; Lymphocytes # (auto) 1.25 K/uL (1.2-3.4); Lymphocytes % (auto) 13.7 %; Mean Corpuscular Hemoglobin 30.7 pg (25-34); Mean Corpuscular Hgb Conc 34.2 g/dL (32-36); Mean Corpuscular Volume 89.6 fL (80-100); Mean Platelet Volume 9.6 fL (7.4-10.4); Monocytes # (auto) 0.57 K/uL (0.11-0.59); Monocytes % (auto) 6.2 %; Neutrophils # (auto) 7.08 K/uL (1.4-6.5); Neutrophils % (auto) 77.6 %; Platelet Count 404 K/uL (130-400); RDW Coefficient of Variation 13.7 % (11.5-14.5); RDW Standard Deviation 44.8 fL (36.4-46.3); Red Blood Count 4.53 M/uL (4.2-5.4); White Blood Count 9.13 K/uL (4.8-10.8)
[2019-01-23 03:29] LABS: Alanine Aminotransferase 41 U/L (12-78); Albumin Level 3.5 gm/dl (3.4-5.0); Aspartate Aminotransferase 19 U/L (15-37); BUN Creatinine Ratio 24.5 (10-20); Bilirubin Direct < 0.1 mg/dl (0-0.2); Blood Urea Nitrogen 22 mg/dl (7-18); Calcium 9.2 mg/dl (8.5-10.1); Carbon Dioxide 28 mmol/L (21-32); Chloride 105 mmol/L (98-107); Creatinine Clr Calc Pharmacy 58.6 ml/min; Est GFR (African American) 77.2; Est GFR (Non-African American) 66.6; Glucose 124 mg/dl (70-99); Lipase 99 U/L (73-393); Sodium 138 mmol/L (136-145)
[2019-01-23 03:32] LABS: Alkaline Phosphatase 115 U/L (45-117); Bilirubin,Total 0.4 mg/dl (0.2-1); Total Protein 7.7 gm/dl (6.4-8.2)
[2019-01-23] MEDS ORDERED: SODIUM CHLORIDE 0.9% 1000ML 1,000 ML IV SCH (04:30)
[2019-01-23] MEDS: HYDROmorphone INJ 0.5 MG/0.5 ML SYR IV PRN ×4 (06:14→20:18)
[2019-01-23] MEDS: D5W AND NSS 1,000 ML IV SCH ×3 (06:16→22:35)
[2019-01-23 06:47] LABS: INR 0.9 (0.9-1.1); Partial Thromboplastin Ratio 0.8; Partial Thromboplastin Time 22.7 Seconds (21.0-31.0); Prothrombin Time 9.6 Seconds (9.0-12.0)
--- NOTE | 2019-01-23 07:02 | CT Scan Report ---
ABDOMEN AND PELVIS CT WITHOUT CONTRAST CT DOSE: 518.48 mGy.cm HISTORY: Acute generalized abdominal pain diffuse abdominal pain, consistent with prev SBO TECHNIQUE: Multiaxial CT images of the abdomen and pelvis were performed without contrast. A dose lo wering technique was utilized adhering to the principles of ALARA. COMPARISON STUDY: CT abdomen and pelvis 05/09/2016 FINDINGS: The lung bases are generally clear. 3 mm solid nodule of the basal left lower lobe is unchanged and l ikely benign. Calcified granuloma of the medial segment right middle lobe. No pneumatosis or pneumope ritoneum. Imaged inferior cardiac chambers are unremarkable. Cholecystectomy. 1 cm hypodensity of the posterior right hepatic lobe is unchanged suggestive of a cyst. Liver otherwise appears unremarkable . Spleen, pancreas and adrenal glands are unremarkable. Multifocal cortical scarring and parenchymal thinning of the left kidney. There is suggestion of a renal sinus cyst evolving the superior pole lef t kidney. Malrotation of the right kidney. No hydronephrosis. Partially decompressed urinary bladder. Unremarkable uterus. Multiple phleboliths of the uterus. Surgical clips are noted within the pelvis bilaterally which may reflect fallopian tube occlusion devices. Mild calcified plaque with tortuosity of the aorta. No aneurysm. No adenopathy. 1.3 cm cystic focus of the upper abdomen adjacent to the distal stomach may reflect a small diverticu lum on image 148 series 3. Mild fecal retention. Appendix not visualized and is reportedly surgically absent. There are multiple dilated stool-filled loops of small bowel measuring up to 3.1 cm transver sely. Mild associated perienteric stranding with interloop edema. In addition point appears to be pre sent within the inferior right hemipelvis it is likely secondary to underlying small bowel adhesions. No obstructing mass or lesion identified. There are a few small fat containing ventral abdominal wal l hernias, diastases measuring up to 1.7 cm. Soft tissues are otherwise unremarkable. Degenerative ch anges of the spine, pelvis and hips. IMPRESSION: 1. Multiple mildly dilated stool-filled loops of small bowel with transition point within the right h emipelvis is compatible with moderate grade grade small bowel obstruction. There is mild associated r eactive interloop edema. No pneumatosis or pneumoperitoneum. 2. Cholecystectomy and appendectomy. 3. Additional findings as above. Electronically signed by: Dong Cobian M.D. 01/23/2019 7:01 AM
--- NOTE | 2019-01-23 08:02 | History and Physical Report ---
DATE OF ADMISSION: 01/23/2019 CHIEF COMPLAINT: Abdominal pain. HISTORY OF PRESENT ILLNESS: This is a 68-year-old female with past medical history significant for congenital anomaly of the kidney, bowel obstructions, history of migraine headaches, history of constipation, history of lumbosacral spondylosis, comes with small bowel obstruction. The patient in 2012 at [facility], thought to be small bowel obstruction and she had exploratory laparotomy at that time could not find anything and was status post appendectomy. She also follows GI for constipation. Currently, she is on Linzess and Prilosec daily. Yesterday evening 5:00 p.m., she started to develop abdominal pain, severe in nature, radiating to back, also some nausea. No vomiting and is not passing gas. Day before that she had a bowel movement. Denies any recent fever, chills. No chest pain, no shortness of breath, no cough, no headache, no blurred vision, no earache, no runny nose, no sore throat. Otherwise, her appetite is good and she swallows okay. Ambulates fine. No recent bloody bowel movements or black stools. Normal bladder movements. No hematuria or burning micturition, no swelling in the legs, no rash. Currently, NG tube placed in the ER. ALLERGIES: CORTICOSTEROIDS. PAST MEDICAL HISTORY: As mentioned above. PAST SURGICAL HISTORY: Exploratory laparotomy of colonoscopies, EGDs, ligation of oviducts, removal of the kidney many years ago plus congenital anomaly. MEDICATIONS: Linzess, Prilosec. FAMILY HISTORY: Significant for paternal aunt has colon cancer. Brother had skin cancer. Mother has lung cancer. Sister has diabetes and heart disorder. Father has heart disorder. Brother has stroke. SOCIAL HISTORY: , lives with her . No smoking, no alcohol, no drug use. REVIEW OF SYMPTOMS: As per HPI. Rest of the systems negative. PHYSICAL EXAMINATION: GENERAL: The patient is of moderate build, not in acute distress. VITAL SIGNS: Temperature 36.4, pulse 80, respiratory rate 16, blood pressure 124/81, oxygen 95% on room air. HEENT: No pallor, no icterus. Pupils equal, round, reactive to light. NECK: No JVD, no neck masses, no carotid bruits. CARDIOVASCULAR: S1, S2 heard, regular rate and rhythm, no murmur, no gallop. RESPIRATORY SYSTEM: Normal AP diameter. No accessory muscle use. No wheezing, no crackles. ABDOMEN: Soft, bowel sounds absent. Diffuse tenderness, more in the right upper quadrant region, question of possible rebound tenderness. Mild guarding, no rigidity. No distention. CENTRAL NERVOUS SYSTEM: Alert and oriented. Cranial nerves II-XII grossly intact. EXTREMITIES: No edema, no erythema. LABORATORY DATA: WBC 10.1, hemoglobin 13.9, hematocrit 40.6, platelets 404. Sodium 138, potassium 4, chloride 105, bicarbonate 28, BUN 32, creatinine 0.8, serum glucose 124, calcium 9.2, total bilirubin 0.4, direct bilirubin less than 0.19, AST 19, ALT 41, alkaline phosphatase 115. Lipase 99. IMAGING: CT of the abdomen and pelvis stat rad- consistent with small-bowel obstruction with transition point in the right aspect of the pelvis, associated fecal effusion, small bowel containing mesenteric edema, small bowel dilatation up to 3.4 cm, trace free fluid in pelvis, no free air, surgical clips in the legs bilaterally, post-cholecystectomy, parenchymal cyst in the liver, malrotation of right kidney, mild scoliosis. ASSESSMENT AND PLAN: This is a 68-year-old female who presents with abdominal pain. 1. Abdominal pain, small-bowel obstruction, mesenteric edema. The patient has history of abdominal obstruction in the past. The CAT scan seems to be similar to the previous CAT scans which showed obstruction. ER notified surgery and was advised to get a lactic acid which we will follow. The patient is currently status post NG tube. We will place her on n.p.o., IV fluids at D5 normal saline 125mL per hour, IV Dilaudid 0.5 mg every 3 hours p.r.n., IV Zofran p.r.n.Question of rebound tenderness-notified surgery. Monitor on medical floor and await surgical input. 2. History of gastroesophageal reflux disease. We will place on IV Pepcid. 3. History of constipation. We will monitor. stool softener when able. 4. Deep venous thrombosis prophylaxis, sequential compression devices. 5. Disposition: Monitor on medical floor. Level 1 full code. MTDD
--- NOTE | 2019-01-23 09:02 | Surgery Consultation ---
Date of Consultation January 23, 2019 Assessment & Plan (1) Partial small bowel obstruction: No indication for emergent surgery. Conservative measures instituted including IV fluids bowel rest and NG tube decompression. We will recheck KUB tomorrow. History of Present Illness Attending Physician: Armen Early MD History of Present Illness Patient with a history of multiple abdominal surgeries as well as partial small bowel obstructions in the past. Her last surgery she believes was about 5 years ago which was a laparoscopy for a bowel obstruction. Her last admission for a partial small bowel obstruction was about a year and a half ago. Her symptoms began last night with abdominal distention discomfort and nausea. She had no emesis. Imaging today shows a moderate small bowel obstruction with transition point in the right pelvis. She currently is feeling somewhat better. Currently no nausea and no pain and relates that her distention is much improved from last night. She also has began passing gas this morning. Allergies Allergy/AdvReac Type Severity Reaction Status Date / Time Corticosteroids Allergy Unknown RASH/NERVOU Verified 05/19/17 08:34 (Glucocorticoids) SNESS Home Medications Home Medications Medication Instructions Recorded Confirmed Type LINACLOTIDE (LINZESS) 145 mcg PO DAILY #0 03/16/13 History OMEPRAZOLE (PRILOSEC) 20 mg PO DAILY #0 cap 03/16/13 History Acetaminophen (Tylenol) 1,000 mg PO Q6 PRN #0 tab 09/23/14 History KRILL OIL (KRILL OIL OMEGA-3) 1 cap PO DAILY #0 05/09/16 History PSEUDOEPHEDRINE HCL 60 mg PO Q6 PRN #0 05/19/17 History Patient History Social History Preferred Language: Palauan Communication Ability: Effective Tying In Machine Operator Required: No Beliefs That Will Affect Care: None Current Living Situation: Spouse Other Information That Helps Us Care for You: No Feels Safe at Home: Yes Safety Concerns: Feels Safe At This Time Smoking Status: Never smoker Do You Dip or Chew Tobacco: No ; Hx Alcohol Use: No Hx Substance Use: No Review of Systems Review of Systems: All systems reviewed & are unremarkable except as noted in HPI & below Physical Exam Constitutional: WD/WN, vitals as above no acute distress and not ill appearing Eyes: PERRL, conjunctivae normal, anicteric sclerae EOM intact bilaterally ENMT: external ear and nose normal, oropharynx normal Ears: no hearing impairment Neck: trachea midline, no thyromegaly Respiratory: normal respiratory effort; no respiratory distress and does not use accessory muscles Cardiovascular: Rate/Rhythm: regular rate and regular rhythm Gastrointestinal (Abdomen): Soft with minimal distention. Nontender. Hyperactive bowel sounds. Skin: no rashes, warm and dry Psychiatric: Orientation: alert, oriented x 3 and cooperative Results & Data Vital Signs (Past 12 Hours) Vital Signs Temp Pulse Pulse Resp BP BP Pulse Ox 01/23/19 06:07 36.5 C 89 16 131/82 97 01/23/19 05:37 88 18 125/80 95 01/23/19 03:36 80 16 124/81 95 01/23/19 02:41 36.4 C L 84 22 143/86 H 93 PG Care Time/CCT Total # of Minutes Spent Total Time Spent with Patient: Total time spent is greater than 50% in coordination of care (as documented) at patient's floor/unit and/or counseling patient:
[2019-01-23] MEDS: FAMOTIDINE 20 MG in SYRINGE 3 ML IV SCH ×2 (09:22→20:25)
[2019-01-23] MEDS: ONDANSETRON INJ 2 MG/ML 2 ML VIAL IV PRN ×2 (09:42→17:44)
--- NOTE | 2019-01-23 11:41 | XRay Report ---
KUB CLINICAL HISTORY: Bowel obstruction. FINDINGS: 2 AP supine abdominal radiographs are compared to study dated 05/19/2017 and correlated with abdominal CT performed the same day 01/23/2019. An enteric tube has been placed. This projects below the diaphragm over the stomach. Cholecystectomy clips are noted in the right upper quadrant and ther e are surgical clips in the pelvis. There is no radiographic evidence of bowel obstruction. Moderate fecal retention is noted in the colon. There are numerous pelvic phleboliths. The skeletal structures are osteopenic and appear intact. There is lumbosacral spondylosis and scoliosis. IMPRESSION: 1. An enteric tube has been placed as above. 2. There is no radiographic evidence of bowel obstruction. Electronically signed by: Bryn Kelsey M.D. 01/23/2019 11:40 AM
[2019-01-23] MEDS ORDERED: CHLORASEPTIC 1.4% SOLN 180 ML BTL MT PRN (16:40)
--- NOTE | 2019-01-23 20:52 | Hospitalist Progress Note ---
Date of Service January 23, 2019 Assessment & Plan (1) SBO (small bowel obstruction): CT demonstrated multiple dilated loops of small bowel with transition point in right hemipelvis consistent with bowel obstruction. Management with bowel rest, IV fluids, NGT initiated. General Surgery consulted. Conservative management recommended. Recheck KUB tomorrow. (2) DVT prophylaxis: No anticoagulants in case surgical intervention required. SCD's. Ambulate. (3) Discharge planning issues: Anticipated discharge to home. Primary Care follow-up with Dr. Zack Cerda. Subjective Recheck for bowel obstruction. Patient seen in their room around 0940. Abdomen less distended. Having some belching, but no emesis. No abdominal pain. Passing flatus, but no stool. Review of Systems: Constitutional- no fever. Cardiac- no chest pain. Pulmonary- no cough or SOB. GI- as noted above. - no urinary symptoms. Otherwise, as noted above. Physical Exam Constitutional: no acute distress Eyes: + anicteric sclerae ENMT: Nose: + external nose abnormality (NGT) Respiratory: no respiratory distress Auscultation: lungs clear to auscultation bilaterally Cardiovascular: Rate/Rhythm: regular rate and regular rhythm Heart Sounds: no murmur Vessels: no JVD Extremities: no calf tenderness and no edema Gastrointestinal (Abdomen): Inspection/Auscultation: + abnormal bowel sounds (quiet) Percussion/Palpation: abdomen soft; abdomen nontender Musculoskeletal: Extremities: no cyanosis Skin: no rashes, warm and dry Psychiatric: Orientation: alert and oriented x 3 Results & Data Vital Signs (Past 12 Hours) Vital Signs Temp Pulse Resp BP Pulse Ox 01/23/19 15:35 36.7 C 80 16 134/80 96 Laboratory Results Laboratory Results - last 24 hr 01/23/19 01/23/19 01/23/19 02:56 02:56 02:56 WBC 9.13 RBC 4.53 Hgb 13.9 Hct 40.6 MCV 89.6 MCH 30.7 MCHC 34.2 RDW Std Deviation 44.8 RDW Coeff of Andrea 13.7 Plt Count 404 H MPV 9.6 Immature Gran % (Auto) 0.1 Neut % (Auto) 77.6 Lymph % (Auto) 13.7 [place] % (Auto) 6.2 Eos % (Auto) 2.0 Baso % (Auto) 0.4 Immature Gran # (Auto) 0.01 Neut # (Auto) 7.08 H Lymph # (Auto) 1.25 [place] # (Auto) 0.57 Eos # (Auto) 0.18 Baso # (Auto) 0.04 PT 9.6 INR 0.9 APTT 22.7 PTT Ratio 0.8 Sodium 138 Potassium 4.0 Chloride 105 Carbon Dioxide 28 Anion Gap 5.0 BUN 22 H Creatinine 0.89 Est Cr Clr Drug Dosing 58.6 Est GFR ( Amer) 77.2 Est GFR (Non-Af Amer) 66.6 BUN/Creatinine Ratio 24.5 H Glucose 124 H Lactate Calcium 9.2 Total Bilirubin 0.4 Direct Bilirubin < 0.1 AST 19 ALT 41 Alkaline Phosphatase 115 Total Protein 7.7 Albumin 3.5 Lipase 99 01/23/19 05:14 WBC RBC Hgb Hct MCV MCH MCHC RDW Std Deviation RDW Coeff of Andrea Plt Count MPV Immature Gran % (Auto) Neut % (Auto) Lymph % (Auto) [place] % (Auto) Eos % (Auto) Baso % (Auto) Immature Gran # (Auto) Neut # (Auto) Lymph # (Auto) [place] # (Auto) Eos # (Auto) Baso # (Auto) PT INR APTT PTT Ratio Sodium Potassium Chloride Carbon Dioxide Anion Gap BUN Creatinine Est Cr Clr Drug Dosing Est GFR ( Amer) Est GFR (Non-Af Amer) BUN/Creatinine Ratio Glucose Lactate 0.7 Calcium Total Bilirubin Direct Bilirubin AST ALT Alkaline Phosphatase Total Protein Albumin Lipase
[2019-01-23] MEDS ORDERED: PROMETHAZINE HCL 12.5 MG in SODIUM CHLORIDE 0.9% 50 ML IV PRN (21:48)
[2019-01-24] MEDS: D5W AND NSS 1,000 ML IV SCH ×3 (05:17→21:18)
[2019-01-24 06:10] LABS: Hemoglobin 11.7 g/dL (12.0-16.0); Mean Corpuscular Hemoglobin 31.5 pg (25-34); Mean Corpuscular Hgb Conc 34.4 g/dL (32-36); Mean Corpuscular Volume 91.6 fL (80-100); Mean Platelet Volume 9.6 fL (7.4-10.4); Platelet Count 336 K/uL (130-400); RDW Coefficient of Variation 14.2 % (11.5-14.5); RDW Standard Deviation 48.3 fL (36.4-46.3); Red Blood Count 3.71 M/uL (4.2-5.4); White Blood Count 7.74 K/uL (4.8-10.8)
[2019-01-24 06:31] LABS: Appearance Urine Clear (Clear); Bilirubin Urine Negative (Negative); Blood Urine Negative (Negative); Color Urine Dark Yellow; Glucose Urine UA 3+ (Negative); Ketones Urine Negative (Negative); Leukocyte Esterase Urine Negative (Negative); Nitrite Urine Negative (Negative); Protein Urine Negative (Negative); Specific Gravity Urine 1.034 (1.000-1.030); Urobilinogen Urine Negative (Negative)
[2019-01-24 06:58] LABS: BUN Creatinine Ratio 18.8 (10-20); Calcium 8.4 mg/dl (8.5-10.1); Creatinine Clr Calc Pharmacy 80.9 ml/min; Est GFR (African American) 106.3; Est GFR (Non-African American) 91.7; Potassium 3.5 mmol/L (3.5-5.1)
--- NOTE | 2019-01-24 07:34 | XRay Report ---
KUB HISTORY: Acute generalized abdominal pain eval for sbo COMPARISON: KUB 01/23/2019 FINDINGS: Distal tip of enteric tube terminates over the central upper abdomen within the region of t he mid gastric body. Bowel gas pattern is nonobstructive. Cholecystectomy. Mild to moderate fecal ret ention of the right hemicolon. Surgical clips project over the central pelvis. Multiple pelvic basin calcifications are suggestive of phleboliths. No renal calculi. No ureteral calculi. No pneumoperito neum or pneumatosis. Lumbar levoscoliosis. Degenerative changes of the spine. No fracture. IMPRESSION: 1. Nonobstructive bowel gas pattern. 2. Distal tip of the enteric tube terminates in the expected location of the mid gastric body. Electronically signed by: Dong Cobian M.D. 01/24/2019 7:33 AM
[2019-01-24] MEDS: FAMOTIDINE 20 MG in SYRINGE 3 ML IV SCH ×2 (08:29→20:55)
--- NOTE | 2019-01-24 08:50 | Surgery Progress Note ---
Date of Service January 24, 2019 Assessment & Plan (1) Partial small bowel obstruction: NGT with ~170cc bilious output Abdominal exam benign KUB this AM revealed a non obstructive bowel pattern Okay to trial removing NGT and try some clear liquids No indication for surgical intervention at this time Patient seen/as above. Feeling better. Tolerating liquid diet so far. +flatus but no BM yet. We will let her try full liquids for the evening meal. If she does well with this we could try real food tomorrow with potential discharge. Subjective Patient states she had a rough day yesterday. [place] like she was gagging with her NGT in and vomited after placement. Since receiving phenergan overnight she feels better this AM. She says she is passing gas, but no BM yet. Denies abdominal pain. Physical Exam Physical Exam: awake/alert Constitutional: well developed and well nourished; no acute distress Respiratory: normal respiratory effort Gastrointestinal (Abdomen): Inspection/Auscultation: abdomen not distended Percussion/Palpation: abdomen soft; abdomen nontender Results & Data Vital Signs (Past 12 Hours) Vital Signs Temp Pulse Resp BP Pulse Ox 01/24/19 07:43 37.1 C 80 18 127/77 97 01/23/19 23:40 37.3 C 84 16 129/74 94 PG Care Time/CCT Total # of Minutes Spent Total Time Spent with Patient: Total time spent is greater than 50% in coordination of care (as documented) at patient's floor/unit and/or counseling patient:
[2019-01-24] MEDS ORDERED: ACETAMINOPHEN 500 MG TAB PO PRN (16:34)
[2019-01-24] MEDS ORDERED: ACETAMINOPHEN 500 MG TAB ONE (16:43)
--- NOTE | 2019-01-24 19:45 | Hospitalist Progress Note ---
Date of Service January 24, 2019 Assessment & Plan (1) SBO (small bowel obstruction): CT demonstrated multiple dilated loops of small bowel with transition point in right hemipelvis consistent with bowel obstruction. SBO probably secondary to adhesions from prior abdominal surgery. Managed with bowel rest, IV fluids, NGT. General Surgery consulted; conservative management recommended. Symptoms, exam, KUB improved. No bowel movement yet. Advance diet as tolerated. (2) DVT prophylaxis: No anticoagulants in case surgical intervention required. SCD's. Ambulate. (3) Discharge planning issues: Anticipated discharge to home. Primary Care follow-up with Dr. Zack Cerda. Subjective Recheck for bowel obstruction. Patient seen in their room around 1530. Better. Less abdominal distention. No abdominal pain. N/V resolved. Passing flatus. NGT removed. Review of Systems: Constitutional- no fever. Cardiac- no chest pain. Pulmonary- no cough or SOB. GI- as noted above. - no urinary symptoms. Otherwise, as noted above. Physical Exam Constitutional: no acute distress Eyes: + anicteric sclerae Respiratory: no respiratory distress Auscultation: lungs clear to auscultation bilaterally Cardiovascular: Rate/Rhythm: regular rate and regular rhythm Heart Sounds: no murmur Vessels: no JVD Extremities: no calf tenderness and no edema Gastrointestinal (Abdomen): Inspection/Auscultation: + abnormal bowel sounds (quiet) Percussion/Palpation: abdomen soft; abdomen nontender Musculoskeletal: Extremities: no cyanosis Skin: no rashes, warm and dry Psychiatric: Orientation: alert and oriented x 3 Results & Data Vital Signs (Past 12 Hours) Vital Signs Temp Pulse Resp BP Pulse Ox 01/24/19 14:56 36.6 C 90 16 165/92 H 98 Laboratory Results 01/24/19 05:45 01/24/19 05:45
[2019-01-25] MEDS: D5W AND NSS 1,000 ML IV SCH (04:59)
[2019-01-25 07:35] VITALS: PULSE 72; TEMP 98.2; O2SAT 94
[2019-01-25] MEDS: FAMOTIDINE 20 MG in SYRINGE 3 ML IV SCH (08:43)
--- NOTE | 2019-01-25 09:07 | Surgery Progress Note ---
Date of Service January 25, 2019 Assessment & Plan (1) Partial small bowel obstruction: improving advance diet as angel takes Miralax daily at home, Linzess 2-3 times per week can have Miralax as above...doing well. had 2 BM's today. tolerated chicken/veggies for lunch. no pain or nausea. ok for d/c. instructions given. Subjective "lots of gas", no BM, no nausea, tolerated full liquid breakfast Physical Exam Gastrointestinal (Abdomen): Inspection/Auscultation: abdomen not distended Percussion/Palpation: abdomen soft; abdomen nontender Results & Data Vital Signs (Past 12 Hours) Vital Signs Temp Pulse Resp BP Pulse Ox 01/25/19 07:33 36.8 C 72 18 146/88 H 94 01/24/19 23:35 36.6 C 69 18 133/77 97 PG Care Time/CCT Total # of Minutes Spent Total Time Spent with Patient: Total time spent is greater than 50% in coordination of care (as documented) at patient's floor/unit and/or counseling patient:
[2019-01-25] MEDS ORDERED: POLYETHYLENE (MIRALAX) 17 GM PACK PO SCH (09:30)
--- NOTE | 2019-01-25 11:16 | Hospitalist Progress Note ---
Date of Service January 25, 2019 Assessment & Plan (1) SBO (small bowel obstruction): Small bowel obstruction --CT ABD:Multiple mildly dilated stool-filled loops of small bowel with transition point within the right hemipelvis is compatible with moderate grade grade small bowel obstruction. There is mild associated reactive interloop edema. No pneumatosis or pneumoperitoneum. Cholecystectomy and appendectomy. --H/O Likely due to adhesions from prior abdominal surgery --KUB:Nonobstructive bowel gas pattern. Distal tip of the enteric tube terminates in the expected location of the mid gastric body. --NG tube discontinued --Received IV fluids --Minimize Pain meds as able --Advance diet as tolerated --Appreciate Surgery Input --Continue bowel regimen --Had BM today GERD Resume PPI (2) DVT prophylaxis: SCDs Ambulate. (3) Discharge planning issues: Plan to discharge home when medically stable Primary Care follow-up with Dr. Zack Cerda. Subjective Patient is seen and examined at bedside Had bowel movement today Denies any nausea, vomiting, abdominal pain, chest pain, shortness of breath Family at bedside Offers no other complaints Review of Systems Review of Systems: All systems reviewed & are unremarkable except as noted in HPI & below Physical Exam Physical Exam: Physical Exam: Vitals signs as noted above General Appearance:Moderately built and nourished, no apparent distress Head: normocephalic, Atraumatic Eyes: normal inspection, EOMI Neck: supple, Trachea midline Respiratory/Chest: Normal breath sounds, CTA Cardiovascular: S1, S2, No murmur Abdomen/GI:Soft, Non tender, Bowel sounds present Extremities/Musculoskelatal:normal inspection, no edema Neurologic/Psych:AAOX3, grossly no focal neurological deficits Skin: normal color, warm Results & Data Vital Signs (Past 12 Hours) Vital Signs Temp Pulse Resp BP Pulse Ox 01/25/19 07:33 36.8 C 72 18 146/88 H 94 01/24/19 23:35 36.6 C 69 18 133/77 97
--- NOTE | 2019-01-25 13:11 | Discharge Summary ---
Date of Service January 25, 2019 Admission HPI Per Admitting Provider CHIEF COMPLAINT: Abdominal pain. HISTORY OF PRESENT ILLNESS: This is a 68-year-old female with past medical history significant for congenital anomaly of the kidney, bowel obstructions, history of migraine headaches, history of constipation, history of lumbosacral spondylosis, comes with small bowel obstruction. The patient in 2012 at [facility], thought to be small bowel obstruction and she had exploratory laparotomy at that time could not find anything and was status post appendectomy. She also follows GI for constipation. Currently, she is on Linzess and Prilosec daily. Yesterday evening 5:00 p.m., she started to develop abdominal pain, severe in nature, radiating to back, also some nausea. No vomiting and is not passing gas. Day before that she had a bowel movement. Denies any recent fever, chills. No chest pain, no shortness of breath, no cough, no headache, no blurred vision, no earache, no runny nose, no sore throat. Otherwise, her appetite is good and she swallows okay. Ambulates fine. No recent bloody bowel movements or black stools. Normal bladder movements. No hematuria or burning micturition, no swelling in the legs, no rash. Currently, NG tube placed in the ER. Admission Exam Per Admitting Provider PHYSICAL EXAMINATION: GENERAL: The patient is of moderate build, not in acute distress. VITAL SIGNS: Temperature 36.4, pulse 80, respiratory rate 16, blood pressure 124/81, oxygen 95% on room air. HEENT: No pallor, no icterus. Pupils equal, round, reactive to light. NECK: No JVD, no neck masses, no carotid bruits. CARDIOVASCULAR: S1, S2 heard, regular rate and rhythm, no murmur, no gallop. RESPIRATORY SYSTEM: Normal AP diameter. No accessory muscle use. No wheezing, no crackles. ABDOMEN: Soft, bowel sounds absent. Diffuse tenderness, more in the right upper quadrant region, question of possible rebound tenderness. Mild guarding, no rigidity. No distention. CENTRAL NERVOUS SYSTEM: Alert and oriented. Cranial nerves II-XII grossly intact. EXTREMITIES: No edema, no erythema. Principal Diagnosis Small bowel obstruction Discharge Data Allergies Allergy/AdvReac Type Severity Reaction Status Date / Time Corticosteroids Allergy Unknown RASH/NERVOU Verified 04/11/18 08:34 (Glucocorticoids) SNESS Consultations 01/23/19 04:17 Consult General Surgery Routine 01/23/19 06:05 Consult Case Management - Discharge Planning Routine Procedures Performed --CT ABD:Multiple mildly dilated stool-filled loops of small bowel with transition point within the right hemipelvis is compatible with moderate grade grade small bowel obstruction. There is mild associated reactive interloop edema. No pneumatosis or pneumoperitoneum. Cholecystectomy and appendectomy. Ordered Studies 01/23/19 02:55 CT abd pelvis wo con Urgent Hospital Course (1) SBO (small bowel obstruction): Small bowel obstruction --CT ABD:Multiple mildly dilated stool-filled loops of small bowel with transition point within the right hemipelvis is compatible with moderate grade grade small bowel obstruction. There is mild associated reactive interloop edema. No pneumatosis or pneumoperitoneum. Cholecystectomy and appendectomy. --H/O Likely due to adhesions from prior abdominal surgery --KUB:Nonobstructive bowel gas pattern. Distal tip of the enteric tube terminates in the expected location of the mid gastric body. --NG tube discontinued --Received IV fluids --Minimize Pain meds as able --Tolerated diet --Appreciate Surgery Input --Continue bowel regimen --Had BM today --SBO resolved with conservative management GERD Resume PPI (2) DVT prophylaxis: SCDs Ambulate. (3) Discharge planning issues: Plan to discharge home when medically stable Primary Care follow-up with Dr. Zack Cerda. Total Time Total Time Spent Total Time Spent (In Minutes): 39 minutes Total Time Includes: Examination of the Patient, Discharge Planning, Medication Reconciliation, Communication With Other Providers and Other Discharge Plan Discharge Items Patient Disposition: Home - Self-Care Reason For Visit: ABDOMINAL PAIN Discharge Diagnosis: Small bowel obstruction Activity: Resume your previous activity Exercise/Sports: Gradually increase as tolerated Non-emergency contact: Primary Care Provider Call non-emergency contact if: you have any medication questions, your symptoms worsen, your pain is not controlled, your pain is worsening, your pain is unusual for you, your pain is concerning for you and you have a fever Follow-up/Referrals: Zack Cerda [Primary Care Provider] - Diet: Heart Healthy and Low Fiber Addtl Attending Provider Instructions: Follow up with your PCP Dr.Richard Cerda in 1 week as advised Follow up with your Surgeon as needed Continue low fiber diet for now. Further recommendations as per your Primary Care Physician. Seek immediate medical attention if your symptoms reoccur or worsen Pending Studies at Discharge: No Stand-Alone Forms: Call Back Authorization, My [facility], Smoking Cessation Medications and DC Order Prescriptions: New polyethylene glycol 3350 [Miralax] 17 gram Powder In Packet 17 g PO DAILY PRN (Reason: Constipation) Qty: 30 RF: 0 Continued LINACLOTIDE (LINZESS) 145 MCG capsule 145 mcg PO DAILY Qty: 0 RF: 0 OMEPRAZOLE (PRILOSEC) 20 MG CONTR REL CAP 20 mg PO DAILY Qty: 0 RF: 0 Acetaminophen (Tylenol) 500 MG tablet 1,000 mg PO Q6 PRN (Reason: Pain or Fever) Qty: 0 RF: 0 KRILL OIL (KRILL OIL OMEGA-3) 1 CAP capsule 1 cap PO DAILY Qty: 0 RF: 0 PSEUDOEPHEDRINE HCL 60 MG tablet 60 mg PO Q6 PRN (Reason: Nasal Congestion) Qty: 0 RF: 0 Discharge Orders: Discharge Order (Routine); Ordered 01/25/19 Ordered By: Quintin Mcleod Admission Data Admit Date/Time: 01/23/19 04:55 Attending Provider: Quintin Mcleod Admit Provider: Gabino Van Primary Care Provider: Zack Cerda Other Providers: Pedro Underwood Other Interventions: Discharge Summary Assessment (RN) Last Done: 01/25/19 13:12 DC Date/Time DO NOT enter until pt leaves facility: 01/25/19 13:52
[2019-01-25 13:13] VITALS: BP 134/80
[2019-01-26] MEDS ORDERED: PANTOprazole 40 MG TAB PO SCH (09:00)
== END 2019-01-25 13:52 | disposition home or self-care (01) | DRG 390 ==
LOC: ED 02:36 → 3W 04:55 → SUATTDRO 04:55 → 3W 05:37

== ENCOUNTER 2019-12-09 09:43 | Inpatient (IN) ==
--- OUTSIDE RECORDS SUMMARY | 2019-12-09 09:45 | External Medical Summary | Continuity of Care Document ---
:1950 Author Name Sky Pemberton Address Unavailable Unavailable , Care Team Providers Name Role Phone Jan Jackson M.D. Unavailable [email or web address] FAULKNER Unavailable Unavailable Unavailable Unavailable Unavailable Assessments Assessed Problems:Chronic vulvitis Problems Chronic vulvitis (616.10) (N76.3) Migraine headache (346.90) (G43.909) Slowing of urinary stream (788.62) (R39.198) Urinary frequency (788.41) (R35.0) Encounter for gynecological examination with abnormal finding (V72.31) (Z01.411) Allergies and Adverse Reactions predniSONE TABS (Allergy) Medications Linzess 290 MCG Oral Capsule; 1 po daily Refills: 0 Clobetasol Propionate 0.05 % External Oi ntment; APPLY SPARINGLY TO AFFECTED AREA(S) TWICE DAILY Nilay Jackson Start: 29-Dec-2016 Quantity: 1 15 GM Tube Refills: 1 PriLOSEC OTC 20 MG Oral Tablet Delayed Release Refills: 0 Procedures History of Laparoscopy With Fulguration Of Oviducts Status: Completed History of Cholecystectomy Laparoscopic Status: Completed History of Biopsy Skin Status: Completed History of Tonsillectomy With Adenoidectomy Status: Completed History of Rotator Cuff Repair Status: C ompleted Immunizations Immunizations not documented Family History Unknown Family Member Family history of Epilepsy Status: Active Comments: Fam darryn History Family history of Thyroid Disorder (V18.19) Status: Active Comments: Family History Family history of Asthma (V17.5) Status: Active Comment s: Family History Family history of Heart Disease (V17.49) Status: Active Comments: Family History Family history of Hypertension (V17.49) Status: Active Comments: Family History Family history of Pure Hypercholesterolemia Status: Active Comments: Family History Family history of Diabetes Mellitus (V18.0) Status: Active Comments: Family History Social History - Smoking Status Never smoked tobacco Ex-smoker Interventions Medication ChangesClobetasol Propionate 0.05 % External Ointment - Start Plan of Treatment Planned Observations Planned Goals not documented Results No Known Results Results not documented Encounters Appointment; Hunter Jackson M.D. 29-Dec-2016 11:40 Encounter Diagnosis: Problem not documented
--- OUTSIDE RECORDS SUMMARY | 2019-12-09 09:46 | External Medical Summary | Continuity of Care Document ---
:1950 Author Name Sky Pemberton Address Unavailable Unavailable , Care Team Providers Name Role Phone Jan Jackson M.D. Unavailable [email or web address] FAULKNER Unavailable Unavailable Unavailable Unavailable Unavailable Assessments Assessed Problems:Chronic vulvitis Problems Slowing of urinary stream (788.62) (R39.198) Urinary frequency (788.41) (R35.0) Migraine headache (346.90) (G43.909) Encounter for gynecological examination with abnormal finding (V72.31) (Z01.411) Chronic vulvitis (616.10) (N76.3) Allergies and Adverse Reactions predniSONE TABS (Allergy) Medications PriLOSEC OTC 20 MG Oral Tablet Delayed Release Refills: 0 Linzess 290 MCG Oral Capsule; 1 po daily Refills: 0 Clobetasol Propionate 0.05 % External Oi ntment; APPLY SPARINGLY TO AFFECTED AREA(S) TWICE DAILY Nilay Jackson Start: 29-Dec-2016 Quantity: 1 15 GM Tube Refills: 1 Procedures History of Laparoscopy With Fulguration Of [...]
--- NOTE | 2019-12-09 09:56 | Emergency Department Note ---
Impression & Plan SBO (small bowel obstruction), Abdominal pain ED Provider Note NAME: PRAMOD STEARNS AGE: 69 SEX: F : 1950 ARRIVES VIA: Walk-In INFORMANT: [Patient][, ] ED PROVIDER(S): Theron Raza MD Chief Complaint: Abdominal pain HPI: Patient does present with abdominal pain that has been ongoing since about 2-230 this morning. The patient describes it as sharp and is moved to the back. The patient states this does feel consistent with a prior history of bowel obstruction. Patient dates that over the last 2 hours it has been constant with intermittent sharp twinges of sharp or discomfort. The patient not take anything for pain at home. Patient denies any vomiting but has had nausea. The patient did have a bowel movement yesterday and a small bowel movement this morning. Patient denies any dysuria or hematuria. The patient denies any blood in the stool. Patient denies any recent trauma to the area heavy lifting twisting or turning. The patient denies fevers, chills, chest pains, shortness of breath, loss of taste or smell. ROS: See HPI for pertinent positives and negatives. A total of 10 systems were reviewed and otherwise negative. Past medical history: See below Surgical history: See below Social history: See below Physical Exam: GENERAL: Uncomfortable in appearance, wearing a mask. EYE EXAM: Normal conjunctiva. PERRL, no anisocoria and EOM's grossly intact w/o pain. NECK: Supple, no nuchal rigidity, no adenopathy, non-tender. No signs of meningismus. LUNGS: Clear to auscultation. Normal chest wall mechanics. HEART: NSR, no MRG. ABDOMEN: Abdomen soft, upper abdominal pain most prominent in the epigastric region, no lower abdominal discomfort not peritonitic, normo-active bowel sounds, no masses, no rebound or guarding. BACK: No CVA TTP. SKIN: No rashes and no bruising. UPPER EXTREMITIES: Upper extremities are grossly normal. LOWER EXTREMITIES: Grossly normal, no edema. NEURO EXAM: A&O x3, cranial nerves II-XII grossly intact, normal speech, moves all 4 extremities on command w/o issue. Differential diagnoses: Appendicitis, ovarian cyst, ovarian torsion, ectopic p regnancy, TOA, PID, infections, diverticulitis, UTI, obstruction, mesenteric ischemia, aortic pathology, inflammatory bowel disease, renal colic, PUD, pancreatitis, biliary pathology, hernia, volvulus, constipation, as well as other pathologies. Course: Patient was seen and evaluated the bedside. Full history physical exam was performed. EKG: Indication: Abdominal pain Normal sinus rhythm, rate of 90, normal intervals, normal axis, no ST changes or T WI. Imaging Studies: Radiology results as stated below per my review in the radiologist's interpretation: SINGLE VIEW CHEST CLINICAL HISTORY: Preoperative examination. FINDINGS: An AP, portable, upright chest radiograph is compared to study dated 05/19/2017. The examination is degraded by portable technique, apical lordotic positioning, and patient rotation. The heart is top normal for projection. The pulmonary vasculature is noncongested. Chronic interstitial thickening is similar to previous. Atelectasis is noted at the lung bases. No airspace consolidation or large pleural effusion is identified. No pneumothorax is seen. The skeletal structures are osteopenic. The bony thorax is grossly intact. Cholecystectomy clips are seen in the right upper quadrant. IMPRESSION: No active disease in the chest. ACT 112: Negative or not required by law. Electronically signed by: Bryn Kelsey M.D. 12/09/2019 1:14 PM Dictated: 12/09/19 1313 Transcribed: 12/09/[address] SCAN OF THE ABDOMEN AND PELVIS WITH IV CONTRAST CLINICAL HISTORY: Upper abdominal pain. COMPARISON STUDY: Abdominal CT dated 01/23/2019, 05/09/2016, and 10/13/2011. TECHNIQUE: Following the IV administration of 93 cc of Optiray 320, CT scan of the abdomen and pelvis is performed from the lung bases to the proximal femora. Images are reviewed in the axial, sagittal, and coronal planes. IV contrast was administered without complication. A dose lowering technique was utilized adhering to the principles of ALARA. CT DOSE: 847.08 mGy.cm FINDINGS: Lung bases: The heart is normal in size and without pericardial effusion. The lung bases are clear noting dependent atelectasis. Liver: The contrast-enhanced liver is normal in size, contour, and attenuation. There is minimal central intrahepatic biliary ductal dilatation. The hepatic veins and portal veins are patent. A 1.8 cm cyst is again seen in the right lobe. Gallbladder: Surgically absent noting clips in the gallbladder fossa. Spleen: Normal in size and attenuation. Pancreas: Moderately atrophic and grossly unremarkable. Adrenal glands: Unremarkable. Kidneys: The contrast enhanced kidneys demonstrate cortical atrophy and are without hydronephrosis. Foci of cortical scarring are present in both kidneys. The kidneys enhance symmetrically. Abdominal vasculature: The abdominal aorta is normal in course and caliber noting mild atherosclerotic calcification. Bowel: The small bowel loops are distended and fluid-filled, measuring up to 3.1 cm diameter. A transition point is identified in the right lower quadrant on image #258. Question a small enhancing nodule versus focally decompressed bowel on image were 258. This measures up to 1.5 cm. Small bowel loops distal to this appear mildly thick-walled. There is no pneumatosis intestinalis or portal venous gas. Trace interloop fluid is observed. The distal small bowel and colon are decompressed. Mild fecal retention is seen throughout the colon. The appendix is not identified and reported surgically absent. A 2 cm presumed diverticulum arising from the inferior aspect of the gastroduodenal junction is again seen anterior to the pancreas on image #144. This has been present dating back to at least 2017. Peritoneum: There is no intraperitoneal free air. Trace perisplenic fluid is identified. Lymphadenopathy: None. Pelvic viscera: The bladder is normal as visualized. The endometrium appears thickened and heterogeneous for age measuring up to 1.6 cm in diameter. Surgical clips are noted in the pelvis bilaterally. No adnexal lesion is seen. There is trace free fluid in the pelvis. Skeletal structures: The skeletal structures are osteopenic. There is mild to moderate lumbosacral spondylosis as well as mild scoliosis. No lytic or blastic lesions are seen. IMPRESSION: 1. Findings are consistent with a small bowel obstruction. A transition point is identified in the right lower quadrant. 2. There is a 1.5 cm focus of enhancing nodularity versus focally decompressed bowel seen at the transition point. A small mucosal lesion is not excluded. 3. The small bowel immediately distal to the obstruction appears mildly thick- walled. 4. There is no intraperitoneal free air, pneumatosis intestinalis, or portal venous gas. 5. There is trace interloop fluid as well as trace free fluid in the pelvis. 6. The endometrium appears thickened and heterogeneous for age measuring up to 1.6 cm. This is not well evaluated by CT. Follow-up with a dedicated pelvic ultrasound and nonemergent gynecology assessment is recommended to exclude underlying mucosal lesion. 7. A 2 cm presumed diverticulum is again seen arising inferiorly at the gastroduodenal junction. This appears to demonstrate an enhancing soft tissue component, and nonemergent GI follow-up is recommended. Endoscopy may provide further information if clinically warranted. 8. Additional findings as above. ACT 112: Negative or not required by law. Electronically signed by: Bryn Kelsey M.D. 12/09/2019 12:02 PM Dictated: 12/09/19 1143 Transcribed: 12/09/19 1143 Cardiac monitoring: An order was placed for continuous cardiac monitoring. The monitor shows a rate of 99 with sinus rhythm. MDM: Patient was seen due to concern for abdominal pain. The patient states that she does have prior history of bowel obstruction. The patient did have blood work completed was given IV fluids, antiemetics, and medications for pain control. The patient's blood work showed a normal white count and H&H. Patient has a very mild thrombocytosis at 435. Kidney function is unremarkable with unremarkable LFTs. Troponin is undetectable. Urinalysis does not appear to obvious for infection. CT of the abdomen pelvis does show the likelihood of a small bowel obstruction. There also findings of thickened endometrium as well as a possible gastroduodenal lesion which may benefit from [employer] and GI follow- up. Given the patient's bowel obstruction do not believe she requires an NG at this time. The patient did have one episode of vomiting after being given the pain medication but does feel better. Patient was offered the NG is I did state that it would likely improve her symptoms of discomfort but the patient declined at this time. I do not think that this is unreasonable given the patient has had no more persistent vomiting and is well-appearing does feel improved. Patient was told that if she does develop symptoms of vomiting or worsening pain she may require the NG tube. Patient understood. Patient was admitted to the [facility] service under Dr. Powell. Past Med/Surg History Medical History Migraine Surgical History Hx of appendectomy Hx of cholecystectomy S/P tonsillectomy and adenoidectomy Social History Smoking Status: Never smoker Hx Alcohol Use: No Hx Substance Use: No Preferred Language: Setswana Communication Ability: Effective Seat Joiner Required: No Beliefs That Will Affect Care: None marital status: Current Living Situation: Spouse Feels Safe at Home: Yes Assistive Devices: None Allergies Allergies Allergy/AdvReac Type Severity Reaction Status Date / Time Corticosteroids Allergy Unknown RASH/NERVOU Verified 12/09/19 10:59 (Glucocorticoids) SNESS Home Meds Home Medications Medication Instructions Recorded Confirmed aspirin [Aspir-Low] 81 mg PO DAILY PRN 12/09/19 12/09/19 atorvastatin 10 mg PO QAM 12/09/19 12/09/19 linaclotide [Linzess] 290 mcg PO QAM PRN 12/09/19 12/09/19 omeprazole 20 mg PO QAM 12/09/19 12/09/19 Previous Rx's Medication Instructions Recorded polyethylene glycol 3350 [Miralax] 17 g PO DAILY PRN #30 ea 01/25/19 Results & Data (ED) Vital Signs Vital Signs - 24 hr 12/09/19 09:45 12/09/19 11:53 12/09/19 12:00 Temperature 36.4 C L Temperature Source Oral Pulse Rate 99 H Pulse Rate from SpO2 Sensor 70 66 Respiratory Rate 22 16 16 Respiratory Effort / Characteristics Non-Labored Respiratory Depth Normal Respiratory Pattern Regular Blood Pressure 157/95 H 100/63 113/67 Blood Pressure Mean 115 72 84 Blood Pressure Position Sitting Pulse Oximetry 97 95 94 Oxygen Delivery Method Room Air Sepsis Recent Fever Within 48 Hours No Sepsis New/Unexplained Change in Mental Status No Sepsis Action Taken by Nursing No Action Required 12/09/19 12:30 12/09/19 13:00 Temperature Temperature Source Pulse Rate 70 Pulse Rate from SpO2 Sensor 70 71 Respiratory Rate 16 20 Respiratory Effort / Characteristics Respiratory Depth Respiratory Pattern Blood Pressure 113/68 120/74 Blood Pressure Mean 82 82 Blood Pressure Position Pulse Oximetry 93 97 Oxygen Delivery Method Sepsis Recent Fever Within 48 Hours Sepsis New/Unexplained Change in Mental Status Sepsis Action Taken by Prison Medications Current Medication List: was personally reviewed by me Laboratory Data Attestation: I reviewed the patient's lab results. Result diagrams: 12/09/19 10:12 12/09/19 10:12 Lab Results 12/09/19 12/09/19 12/09/19 Range/Units 10:12 10:12 11:00 WBC 6.73 (4.8-10.8) K/uL RBC 4.60 (4.2-5.4) M/uL Hgb 13.8 (12.0-16.0) g/dL Hct 41.1 (37-47) % MCV 89.3 (80-100) fL MCH 30.0 (25-34) pg MCHC 33.6 (32-36) g/dL RDW Std Deviation 45.6 (36.4-46.3) fL RDW Coeff of Andrea 13.9 (11.5-14.5) % Plt Count 435 H (130-400) K/uL MPV 9.8 (7.4-10.4) fL Immature Gran % (Auto) 0.1 % Neut % (Auto) 79.0 % Lymph % (Auto) 13.1 % [place] % (Auto) 5.8 % Eos % (Auto) 1.6 % Baso % (Auto) 0.4 % Neut # (Auto) 5.31 (1.4-6.5) K/uL Lymph # (Auto) 0.88 L (1.2-3.4) K/uL [place] # (Auto) 0.39 (0.11-0.59) K/uL Eos # (Auto) 0.11 (0-0.5) K/uL Baso # (Auto) 0.03 (0-0.2) K/uL Immature Gran # (Auto) 0.01 (0.00-0.02) K/uL Sodium 137 (136-145) mmol/L Potassium TNP Chloride 107 (98-107) mmol/L Carbon Dioxide 24 (21-32) mmol/L Anion Gap 6.0 (3-11) BUN 14 (7-18) mg/dl Creatinine 0.87 (0.6-1.2) mg/dl Est Cr Clr Drug Dosing 61.5 ml/min Est GFR ( Amer) 78.8 Est GFR (Non-Af Amer) 68.0 BUN/Creatinine Ratio 15.6 (10-20) Glucose 120 H (70-99) mg/dl Calcium 9.4 (8.5-10.1) mg/dl Total Bilirubin 0.4 (0.2-1) mg/dl AST (15-37) U/L ALT 52 (12-78) U/L Alkaline Phosphatase 136 H (45-117) U/L Troponin I < 0.015 (0-0.045) ng/ml Total Protein 7.8 (6.4-8.2) gm/dl Albumin 3.3 L (3.4-5.0) gm/dl Globulin 4.5 H (2.5-4.0) gm/dl Albumin/Globulin Ratio 0.7 L (0.9-2) Lipase 92 (73-393) U/L Urine Color Yellow Urine Appearance Clear (Clear) Urine pH 8.5 H (4.5-7.5) Ur Specific [place] 1.015 (1.000-1.030) Urine Protein Negative (Negative) Urine Glucose (UA) Negative (Negative) Urine Ketones Negative (Negative) Urine Blood Trace H (Negative) Urine Nitrite Negative (Negative) Urine Bilirubin Negative (Negative) Urine Urobilinogen Negative (Negative) Ur Leukocyte Esterase Negative (Negative) Urine WBC (Auto) 1-5 (0-5) /hpf Urine RBC (Auto) 5-10 H (0-4) /hpf U Hyaline Cast (Auto) 1-5 (0-5) /lpf U Epithel Cells (Auto) 5-10 H (0-5) /lpf Urine Bacteria (Auto) Negative (Negative) COVID-19 Eval Order SARS-CoV-2, RNA, NAAT (NEGATIVE) 12/09/19 12/09/19 Range/Units 12:55 12:55 WBC (4.8-10.8) K/uL RBC (4.2-5.4) M/uL Hgb (12.0-16.0) g/dL Hct (37-47) % MCV (80-100) fL MCH (25-34) pg MCHC (32-36) g/dL RDW Std Deviation (36.4-46.3) fL RDW Coeff of Andrea (11.5-14.5) % Plt Count (130-400) K/uL MPV (7.4-10.4) fL Immature Gran % (Auto) % Neut % (Auto) % Lymph % (Auto) % [place] % (Auto) % Eos % (Auto) % Baso % (Auto) % Neut # (Auto) (1.4-6.5) K/uL Lymph # (Auto) (1.2-3.4) K/uL [place] # (Auto) (0.11-0.59) K/uL Eos # (Auto) (0-0.5) K/uL Baso # (Auto) (0-0.2) K/uL Immature Gran # (Auto) (0.00-0.02) K/uL Sodium (136-145) mmol/L Potassium Chloride (98-107) mmol/L Carbon Dioxide (21-32) mmol/L Anion Gap (3-11) BUN (7-18) mg/dl Creatinine (0.6-1.2) mg/dl Est Cr Clr Drug Dosing ml/min Est GFR ( Amer) Est GFR (Non-Af Amer) BUN/Creatinine Ratio (10-20) Glucose (70-99) mg/dl Calcium (8.5-10.1) mg/dl Total Bilirubin (0.2-1) mg/dl AST (15-37) U/L ALT (12-78) U/L Alkaline Phosphatase (45-117) U/L Troponin I (0-0.045) ng/ml Total Protein (6.4-8.2) gm/dl Albumin (3.4-5.0) gm/dl Globulin (2.5-4.0) gm/dl Albumin/Globulin Ratio (0.9-2) Lipase (73-393) U/L Urine Color Urine Appearance (Clear) Urine pH (4.5-7.5) Ur Specific [place] (1.000-1.030) Urine Protein (Negative) Urine Glucose (UA) (Negative) Urine Ketones (Negative) Urine Blood (Negative) Urine Nitrite (Negative) Urine Bilirubin (Negative) Urine Urobilinogen (Negative) Ur Leukocyte Esterase (Negative) Urine WBC (Auto) (0-5) /hpf Urine RBC (Auto) (0-4) /hpf U Hyaline Cast (Auto) (0-5) /lpf U Epithel Cells (Auto) (0-5) /lpf Urine Bacteria (Auto) (Negative) COVID-19 Eval [facility] SARS-CoV-2, RNA, NAAT NEGATIVE (NEGATIVE) Administered Medications Discontinued Medications Sodium Chloride (Nss) 500 mls @ 999 mls/hr IV .Q31M BRETT Stop: 12/09/19 10:45 Last Infusion: 12/09/19 11:38 Dose: 0 mls/hr Documented by: [id number] Admin: 12/09/19 10:16 Dose: 999 mls/hr Documented by: [id number] Ioversol (Ioversol 100ml) 93 ml IV ONCE ONE Stop: 12/09/19 11:12 Last Admin: 12/09/19 11:12 Dose: 93 ml Documented by: [id number] Morphine Sulfate (Morphine Sulfate 4 Mg/Ml 1 Ml Carp\Vial) 6 mg IV NOW STA Stop: 12/09/19 10:02 Last Admin: 12/09/19 10:15 Dose: 6 mg Documented by: [id number] Ondansetron HCl (Ondansetron Inj 2 Mg/Ml 2 Ml Vial) 4 mg IV NOW STA Stop: 12/09/19 10:02 Last Admin: 12/09/19 10:15 Dose: 4 mg Documented by: [id number] Discharge Plan Visit Data Chief Complaint: Abdominal Pain Stated Complaint: abd pain ED Provider: Theron Raza Discharge Problem: SBO (small bowel obstruction), Abdominal pain Forms Stand Alone Forms: [facility] Prescriptions Prescriptions: No Action polyethylene glycol 3350 [Miralax] 17 gram Powder In Packet 17 g PO DAILY PRN (Reason: Constipation) Qty: 30 RF: 0 atorvastatin 10 mg tablet 10 mg PO QAM RF: 0 aspirin [Aspir-Low] 81 mg Tablet,Delayed Release (Dr/Ec) 81 mg PO DAILY PRN (Reason: .) RF: 0 omeprazole 20 mg capsule,delayed release(DR/EC) 20 mg PO QAM RF: 0 Linzess 290 mcg capsule 290 mcg PO QAM PRN (Reason: Constipation) RF: 0 Discharge Problem: Abdominal pain Qualifiers: Abdominal location: upper abdomen, unspecified Qualified Code(s): R10.10 - Upper abdominal pain, unspecified
[2019-12-09] MEDS ORDERED: ONDANSETRON INJ 2 MG/ML 2 ML VIAL IV STA (10:01)
[2019-12-09] MEDS ORDERED: MoRPHine SULFATE 4 MG/ML 1 ML CARP\\VIAL IV STA (10:01)
[2019-12-09] MEDS ORDERED: SODIUM CHLORIDE 0.9% 500 ML IV SCH (10:15)
[2019-12-09 10:21] LABS: Basophils # (auto) 0.03 K/uL (0-0.2); Basophils % (auto) 0.4 %; Eosinophils # (auto) 0.11 K/uL (0-0.5); Eosinophils % (auto) 1.6 %; Hematocrit (blood only) 41.1 % (37-47); Hemoglobin 13.8 g/dL (12.0-16.0); Immature Granulocytes # (auto) 0.01 K/uL (0.00-0.02); Immature Granulocytes % (auto) 0.1 %; Lymphocytes # (auto) 0.88 K/uL (1.2-3.4); Lymphocytes % (auto) 13.1 %; Mean Corpuscular Hgb Conc 33.6 g/dL (32-36); Mean Corpuscular Volume 89.3 fL (80-100); Mean Platelet Volume 9.8 fL (7.4-10.4); Monocytes # (auto) 0.39 K/uL (0.11-0.59); Monocytes % (auto) 5.8 %; Neutrophils # (auto) 5.31 K/uL (1.4-6.5); Platelet Count 435 K/uL (130-400); RDW Coefficient of Variation 13.9 % (11.5-14.5); RDW Standard Deviation 45.6 fL (36.4-46.3); White Blood Count 6.73 K/uL (4.8-10.8)
[2019-12-09 10:44] LABS: Alanine Aminotransferase 52 U/L (12-78); Albumin Globulin Ratio 0.7 (0.9-2); Albumin Level 3.3 gm/dl (3.4-5.0); Alkaline Phosphatase 136 U/L (45-117); BUN Creatinine Ratio 15.6 (10-20); Bilirubin,Total 0.4 mg/dl (0.2-1); Blood Urea Nitrogen 14 mg/dl (7-18); Calcium 9.4 mg/dl (8.5-10.1); Carbon Dioxide 24 mmol/L (21-32); Chloride 107 mmol/L (98-107); Creatinine Clr Calc Pharmacy 61.5 ml/min; Est GFR (African American) 78.8; Globulin 4.5 gm/dl (2.5-4.0); Glucose 120 mg/dl (70-99); Lipase 92 U/L (73-393); Sodium 137 mmol/L (136-145); Total Protein 7.8 gm/dl (6.4-8.2); Troponin I < 0.015 ng/ml (0-0.045)
[2019-12-09] MEDS ORDERED: IOVERSOL 100ml IV ONE (11:11)
[2019-12-09 11:18] LABS: Appearance Urine Clear (Clear); Bacteria Urine Automated Negative (Negative); Bilirubin Urine Negative (Negative); Blood Urine Trace (Negative); Color Urine Yellow; Glucose Urine UA Negative (Negative); Ketones Urine Negative (Negative); Leukocyte Esterase Urine Negative (Negative); Nitrite Urine Negative (Negative); Protein Urine Negative (Negative); Specific Gravity Urine 1.015 (1.000-1.030); Urobilinogen Urine Negative (Negative); pH Urine 8.5 (4.5-7.5)
--- NOTE | 2019-12-09 11:22 | Electrocardiogram Report ---
Test Reason : Blood Pressure : / mmHG Vent. Rate : 090 BPM Atrial Rate : 090 BPM P-R Int : 152 ms QRS Dur : 082 ms QT Int : 350 ms P-R-T Axes : 050 033 057 degrees QTc Int : 428 ms Poor data quality, interpretation may be adversely affected Normal sinus rhythm Normal ECG When compared with ECG of 09-MAY-2016 15:26, No significant change was found Confirmed by Gabino Velasquez ([id number]) on 12/09/2019 11:22:07 AM Referred By: REFERRED SELF Confirmed By:Gabino Velasquez
--- NOTE | 2019-12-09 12:03 | CT Scan Report ---
CT SCAN OF THE ABDOMEN AND PELVIS WITH IV CONTRAST CLINICAL HISTORY: Upper abdominal pain. COMPARISON STUDY: Abdominal CT dated 01/23/2019, 05/09/2016, and 10/13/2011. TECHNIQUE: Following the IV administration of 93 cc of Optiray 320, CT scan of the abdomen and pelvi s is performed from the lung bases to the proximal femora. Images are reviewed in the axial, sagittal , and coronal planes. IV contrast was administered without complication. A dose lowering technique wa s utilized adhering to the principles of ALARA. CT DOSE: 847.08 mGy.cm FINDINGS: Lung bases: The heart is normal in size and without pericardial effusion. The lung bases are clear no ting dependent atelectasis. Liver: The contrast-enhanced liver is normal in size, contour, and attenuation. There is minimal cent ral intrahepatic biliary ductal dilatation. The hepatic veins and portal veins are patent. A 1.8 cm c yst is again seen in the right lobe. Gallbladder: Surgically absent noting clips in the gallbladder fossa. Spleen: Normal in size and attenuation. Pancreas: Moderately atrophic and grossly unremarkable. Adrenal glands: Unremarkable. Kidneys: The contrast enhanced kidneys demonstrate cortical atrophy and are without hydronephrosis. F oci of cortical scarring are present in both kidneys. The kidneys enhance symmetrically. Abdominal vasculature: The abdominal aorta is normal in course and caliber noting mild atheroscleroti c calcification. Bowel: The small bowel loops are distended and fluid-filled, measuring up to 3.1 cm diameter. A trans ition point is identified in the right lower quadrant on image #258. Question a small enhancing nodul e versus focally decompressed bowel on image were 258. This measures up to 1.5 cm. Small bowel loops distal to this appear mildly thick-walled. There is no pneumatosis intestinalis or portal venous gas. Trace interloop fluid is observed. The distal small bowel and colon are decompressed. Mild fecal ret ention is seen throughout the colon. The appendix is not identified and reported surgically absent. A 2 cm presumed diverticulum arising from the inferior aspect of the gastroduodenal junction is again seen anterior to the pancreas on image #144. This has been present dating back to at least 2016. Peritoneum: There is no intraperitoneal free air. Trace perisplenic fluid is identified. Lymphadenopathy: None. Pelvic viscera: The bladder is normal as visualized. The endometrium appears thickened and heterogene ous for age measuring up to 1.6 cm in diameter. Surgical clips are noted in the pelvis bilaterally. N o adnexal lesion is seen. There is trace free fluid in the pelvis. Skeletal structures: The skeletal structures are osteopenic. There is mild to moderate lumbosacral sp ondylosis as well as mild scoliosis. No lytic or blastic lesions are seen. IMPRESSION: 1. Findings are consistent with a small bowel obstruction. A transition point is identified in the ri t lower quadrant. 2. There is a 1.5 cm focus of enhancing nodularity versus focally decompressed bowel seen at the ramirez sition point. A small mucosal lesion is not excluded. 3. The small bowel immediately distal to the obstruction appears mildly thick-walled. 4. There is no intraperitoneal free air, pneumatosis intestinalis, or portal venous gas. 5. There is trace interloop fluid as well as trace free fluid in the pelvis. 6. The endometrium appears thickened and heterogeneous for age measuring up to 1.6 cm. This is not we ll evaluated by CT. Follow-up with a dedicated pelvic ultrasound and nonemergent gynecology assessmen t is recommended to exclude underlying mucosal lesion. 7. A 2 cm presumed diverticulum is again seen arising inferiorly at the gastroduodenal junction. This appears to demonstrate an enhancing soft tissue component, and nonemergent GI follow-up is recommend ed. Endoscopy may provide further information if clinically warranted. 8. Additional findings as above. ACT 112: Negative or not required by law. Electronically signed by: Bryn Kelsey M.D. 12/09/2019 12:02 PM
[2019-12-09] MEDS ORDERED: HYDROmorphone INJ 0.5 MG/0.5 ML SYR IV PRN (13:07)
--- NOTE | 2019-12-09 13:07 | History & Physical Report ---
Date of Service December 09, 2019 Assessment & Plan (1) SBO (small bowel obstruction): With transition point in right lower quadrant Has had SBO before and likely secondary to adhesions with prior history of appendectomy and cholecystectomy We will keep the patient n.p.o. and give intravenous fluid and electrolyte replacement and IV pain medications Surgery consult She may need NG tube insertion if the condition worsens Abnormal CT scan of the abdomen pelvis Showing possible duodenal diverticula and will need GI evaluation likely as an outpatient Showing endometrial thickening and will need abdominal ultrasound and possible ROW BOSS HOEING evaluation as an outpatient DVT prophylaxis Subcu heparin CODE STATUS Full History of Present Illness Chief Complaint: Abdominal pain with distention and nausea since around 2 AM Primary Care Provider: Gisell Sanders MD She is a 69-year-old female with a significant past medical history of inte stinal obstruction in the past and constipation apparently woke up early this morning around 2 AM with abdominal pain, bloating with nausea. She has had history of intestinal obstruction about 1 year ago. She vomited once in the emergency room following intravenous pain medication. Denies any fever and/or chills, no cough or phlegm, no shortness of breath of any significance and no problem with her urine and the bowel habit. Denies any headache, blurred vision or numbness or tingling involving any of the extremities. She was noted to have small bowel obstruction with transition point at right lower quadrant noted in CT scan of the abdomen and pelvis. She did not require any NG tube placement on admission. Allergies Allergy/AdvReac Type Severity Reaction Status Date / Time Corticosteroids Allergy Unknown RASH/NERVOU Verified 12/09/19 10:59 (Glucocorticoids) SNESS Home Medications Home Medications Medication Instructions Recorded Confirmed Type polyethylene glycol 3350 [Miralax] 17 g PO DAILY PRN #30 ea 01/25/19 12/09/19 Rx aspirin [Aspir-Low] 81 mg PO DAILY PRN 12/09/19 12/09/19 History atorvastatin 10 mg PO QAM 12/09/19 12/09/19 History linaclotide [Linzess] 290 mcg PO QAM PRN 12/09/19 12/09/19 History omeprazole 20 mg PO QAM 12/09/19 12/09/19 History Past Med/Surg History Medical History Migraine Surgical History Hx of appendectomy Hx of cholecystectomy S/P tonsillectomy and adenoidectomy Social History Smoking Status: Never smoker Hx Alcohol Use: No Hx Substance Use: No Preferred Language: Haitian Communication Ability: Effective Rn Integrated Required: No Beliefs That Will Affect Care: None marital status: Current Living Situation: Spouse Feels Safe at Home: Yes Assistive Devices: None Review of Systems Review of Systems: All systems reviewed & are unremarkable except as noted in HPI & below Physical Exam Physical Exam: Lying in bed with minimal upper abdominal pain but no distention Constitutional: well developed, well nourished and + acute distress (Due to upper abdominal pain) Eyes: PERRL, conjunctivae normal, anicteric sclerae ENMT: external ear and nose normal, oropharynx normal Neck: trachea midline, no thyromegaly Respiratory: no respiratory distress Auscultation: lungs clear to auscultation bilaterally Cardiovascular: Rate/Rhythm: regular rate and regular rhythm Heart Sounds: no murmur Extremities: no edema Gastrointestinal (Abdomen): Inspection/Auscultation: + abdomen distended (Minimally distended but soft); + abnormal bowel sounds (Diminished) Percussion/Palpation: + abdomen tender (Mildly tender in the epigastrium) and abdomen soft Musculoskeletal: No acute arthritis in any joint Neurologic: Alert, awake and oriented x3. No focal sensory and motor deficit appreciated Psychiatric: A+Ox3, euthymic affect Lymphatic: no cervical or axillary lymphadenopathy Results & Data Results & Data ([facility]) Vital Signs (Past 12 Hours) Vital Signs Temp Pulse Resp BP Pulse Ox 12/09/19 09:45 36.4 C L 99 H 22 157/95 H 97 Laboratory Results Short CBC 12/09/19 Range/Units 10:12 WBC 6.73 (4.8-10.8) K/uL Hgb 13.8 (12.0-16.0) g/dL Hct 41.1 (37-47) % Plt Count 435 H (130-400) K/uL BMP 12/09/19 10:12 Sodium 137 Potassium TNP Chloride 107 Carbon Dioxide 24 BUN 14 Creatinine 0.87 Glucose 120 H Calcium 9.4 Cardiac Enzymes 12/09/19 Range/Units 10:12 Troponin I < 0.015 (0-0.045) ng/ml Liver Function 12/09/19 Range/Units 10:12 Total Bilirubin 0.4 (0.2-1) mg/dl AST (15-37) U/L ALT 52 (12-78) U/L Alkaline Phosphatase 136 H (45-117) U/L Albumin 3.3 L (3.4-5.0) gm/dl Urine 12/09/19 Range/Units 11:00 Urine Color Yellow Urine Appearance Clear (Clear) Urine pH 8.5 H (4.5-7.5) Ur Specific [place] 1.015 (1.000-1.030) Urine Protein Negative (Negative) Urine Glucose (UA) Negative (Negative) Code Status & VTE Plan VTE Prophylaxis Plan VTE Prophylaxis will be ordered: Yes
--- NOTE | 2019-12-09 13:15 | XRay Report ---
SINGLE VIEW CHEST CLINICAL HISTORY: Preoperative examination. FINDINGS: An AP, portable, upright chest radiograph is compared to study dated 05/19/2017. The examina tion is degraded by portable technique, apical lordotic positioning, and patient rotation. The heart is top normal for projection. The pulmonary vasculature is noncongested. Chronic interstitial thicken ing is similar to previous. Atelectasis is noted at the lung bases. No airspace consolidation or larg e pleural effusion is identified. No pneumothorax is seen. The skeletal structures are osteopenic. Th e bony thorax is grossly intact. Cholecystectomy clips are seen in the right upper quadrant. IMPRESSION: No active disease in the chest. ACT 112: Negative or not required by law. Electronically signed by: Bryn Kelsey M.D. 12/09/2019 1:14 PM
[2019-12-09] MEDS: ONDANSETRON INJ 2 MG/ML 2 ML VIAL IV PRN (14:03)
[2019-12-09] MEDS ORDERED: INFLUENZA VIRUS QUAD VACCINE 0.5 ML SYR IM ONE (14:34)
[2019-12-09] MEDS ORDERED: INFLUENZA ADMINISTRATION CHARGE ONE (14:34)
[2019-12-09] MEDS: NSS + 20MEQ KCL 20 MEQ/1,000 ML BAG IV SCH (14:48)
[2019-12-09] MEDS: ACETAMINOPHEN 1000 MG/100 ML IV IV PRN (16:55)
[2019-12-09] MEDS ORDERED: PROMETHAZINE HCL 12.5 MG in SODIUM CHLORIDE 0.9% 50 ML IV PRN (17:01)
[2019-12-10] MEDS: NSS + 20MEQ KCL 20 MEQ/1,000 ML BAG IV SCH (01:04)
--- NOTE | 2019-12-10 06:07 | Surgery Consultation ---
Date of Consultation December 10, 2019 Assessment & Plan (1) Partial small bowel obstruction: -continue conservative measures: -NPO -IVF for hydration -will advance diet once improved bowel function noted -discussed with pt. that if N/V develops she will require NGT -encourage ambulation as above. +flatus and decreased distensionl. no pain or nasuea. will re-check KUB and if better will start clears. no urgent need for surgical intervention at this time History of Present Illness Attending Physician: Manuel Powell MD History of Present Illness 69 year old female admitted due to N/V and abdominal pain. She reports a hx. of SBO x4-5 times n the past. Her initial SOB required surgery, but each subsequent episode was treated successfully in a conservative manner. Her most recetn bout of emesis was about 12 hours ago. Overnight she has not had further N/V, and she denies worsening abdominal pain. She is passing little to no flatus, and has not had a BM since admission. In in the ED at time of admission, a CT scan of her abdomen showed concern for SBO prompting admission. She has thus far declined NGT as her symptoms have not gotten any worse. At the time of my exam she was in no distress. Allergies Allergy/AdvReac Type Severity Reaction Status Date / Time Corticosteroids Allergy Unknown RASH/NERVOU Verified 12/09/19 10:59 (Glucocorticoids) SNESS Home Medications Home Medications Medication Instructions Recorded Confirmed Type polyethylene glycol 3350 [Miralax] 17 g PO DAILY PRN #30 ea 01/25/19 12/09/19 Rx aspirin [Aspir-Low] 81 mg PO DAILY PRN 12/09/19 12/09/19 History atorvastatin 10 mg PO QAM 12/09/19 12/09/19 History linaclotide [Linzess] 290 mcg PO QAM PRN 12/09/19 12/09/19 History omeprazole 20 mg PO QAM 12/09/19 12/09/19 History Patient History Medical History Migraine Surgical History Hx of appendectomy Hx of cholecystectomy S/P tonsillectomy and adenoidectomy Social History Smoking Status: Never smoker Hx Alcohol Use: Yes Alcohol type: wine Hx Substance Use: No Preferred Language: Hebrew Communication Ability: Effective Internet Sales Representative Required: No Beliefs That Will Affect Care: None marital status: Current Living Situation: Spouse Other Information That Helps Us Care for You: No Feels Safe at Home: Yes Safety Concerns: Feels Safe At This Time Assistive Devices: None Review of Systems Constitutional: no fever, no chills and no sweats Eyes: no diplopia Ear, Nose, Mouth, Throat: no ear pain Respiratory: no cough and no dyspnea Cardiovascular: no chest pain Gastrointestinal: + abdominal pain, + nausea and + vomiting Genitourinary: no dysuria Musculoskeletal: no back pain Integumentary: no rash Neurologic: no localized weakness Physical Exam Constitutional: well developed and well nourished; no acute distress Eyes: no conjunctival abnormality ENMT: Ears: no hearing impairment Neck: trachea midline Respiratory: normal respiratory effort, lungs clear to auscultation Cardiovascular: Rate/Rhythm: regular rate and regular rhythm Gastrointestinal (Abdomen): Inspection/Auscultation: + hyperactive bowel sounds Percussion/Palpation: abdomen soft; abdomen nontender no pain with palpation Musculoskeletal: no calf pain Skin: no rashes, warm and dry Neurologic: moves all extremities Results & Data ([facility]) Vital Signs (Past 12 Hours) Vital Signs Temp Pulse Pulse Resp BP BP Pulse Ox 12/10/19 04:33 36.9 C 74 16 132/65 96 12/10/19 01:12 EDT 72 12/09/19 23:00 37 C 75 16 121/70 95 12/09/19 19:40 37.0 C 68 20 132/70 98 PG Care Time/CCT Total # of Minutes Spent Total Time Spent with Patient: Total time spent is greater than 50% in coordination of care (as documented) at patient's floor/unit and/or counseling patient: Coding Level of Care Code 00656 Inpt Consult Level 4 Diagnoses Partial small bowel obstruction K56.600
--- NOTE | 2019-12-10 08:22 | Hospitalist Progress Note ---
Date of Service December 10, 2019 Assessment & Plan (1) SBO (small bowel obstruction): -as per 12/09/2019 ED notes "Patient does present with abdominal pain that has been ongoing since about 2-230 this morning. The patient describes it as sharp and is moved to the back. The patient states this does feel consistent with a prior history of bowel obstruction. Patient dates that over the last 2 hours it has been constant with intermittent sharp twinges of sharp or discomfort. The patient not take anything for pain at home. Patient denies any vomiting but has had nausea. The patient did have a bowel movement yesterday and a small bowel movement this morning" -CT abdomen/pelvis pertinent for " Findings are consistent with a small bowel obstruction. A transition point is identified in the right lower quadrant." also that "There is a 1.5 cm focus of enhancing nodularity versus focally decompressed bowel seen at the transition point. A small mucosal lesion is not excluded." -admitting hospitalist noted that patient has had SBO before and likely secondary to adhesions with prior history of appendectomy and cholecystectomy. patient started on bowel rest and IV fluids and IV PPI. holding the home dose aspirin and home dose atorvastatin -12/10/2019: Patient seen and examined at bedside with also the general surgery team in the room. Patient denies acute abdomen pain today. She reports last bowel movement on Wednesday12/08/2019. Surgery consult planning abdominal imaging with KUB on 12/10/2019 and possible advance to liquid diet (2) Duodenal diverticulum: -CT scan of the abdomen pelvis also with "A 2 cm presumed diverticulum is again seen arising inferiorly at the gastroduodenal junction. This appears to demonstrate an enhancing soft tissue component, and nonemergent GI follow-up is recommended. Endoscopy may provide further information if clinically warranted." -patient follows with [facility] gastroenterology and she believes she is due for colonoscopy or endoscopy screening Other Abnormal CT findings - The endometrium appears thickened and heterogeneous for age measuring up to 1.6 cm. This is not well evaluated by CT. Follow-up with a dedicated pelvic ultrasound and nonemergent gynecology assessment is recommended to exclude underlying mucosal lesion. DVT prophylaxis: SCDs CODE STATUS Full Admission and Anticipated Discharge Date Admission Date: December 09, 2019 Subjective Patient seen and examined at bedside with also the general surgery team in the room. Patient denies acute abdomen pain today. She reports last bowel movement on Wednesday12/08/2019. no chest pain. no dizziness. no headache. no vomiting. no fever. patient denies other symptoms Review of Systems Review of Systems: All systems reviewed & are unremarkable except as noted in Subjective Physical Exam Constitutional: comfortable Eyes: PERRL, conjunctivae normal, anicteric sclerae EOM intact bilaterally ENMT: external ear and nose normal, oropharynx normal Neck: normal visual inspection Respiratory: normal respiratory effort, lungs clear to auscultation Cardiovascular: Rate/Rhythm: regular rate Gastrointestinal (Abdomen): normal bowel sounds, soft, nontender, no hepatosplenomegaly Musculoskeletal: Head/Neck/Chest: normocephalic and head atraumatic Neurologic: PERRL, EOMI, accommodation nl, no face palsy, no dysarthria CN's II-XI intact bilaterally Psychiatric: A+Ox3, euthymic affect Results & Data Results & Data ([facility]) Vital Signs (Past 12 Hours) Vital Signs Temp Pulse Pulse Resp BP Pulse Ox 12/10/19 07:51 36.7 C 77 16 125/77 96 12/10/19 04:33 36.9 C 74 16 132/65 96 12/10/19 01:12 EDT 72 12/09/19 23:00 37 C 75 16 121/70 95
[2019-12-10] MEDS: ACETAMINOPHEN 1000 MG/100 ML IV IV PRN (08:23)
[2019-12-10] MEDS: ONDANSETRON INJ 2 MG/ML 2 ML VIAL IV PRN (08:32)
--- NOTE | 2019-12-10 08:50 | XRay Report ---
KUB HISTORY: Follow up study in a patient with small bowel obstruction SBO COMPARISON: CT abdomen and pelvis 12/09/2019 FINDINGS: There is decreased small bowel distention from yesterday's study. Air-filled loops of nondi lated small bowel are noted within the central abdomen. Mild to moderate fecal retention. Cholecystec yee. Surgical clips of the pelvis. No renal calculi. No ureteral calculi. Phleboliths of the pelvis . No pneumoperitoneum or pneumatosis. Degenerative changes of the spine, pelvis and hips. Lumbar levo scoliosis. No fracture. IMPRESSION: 1. Decreased small bowel distention with nonobstructive bowel gas pattern. 2. No pneumoperitoneum. ACT 112: Negative or not required by law. The above report was generated using voice recognition software. It may contain grammatical, syntax o r spelling errors. Electronically signed by: Dong Cobian M.D. 12/10/2019 8:49 AM
[2019-12-10] MEDS: PANTOprazole 40 MG in SYRINGE 0 ML IV SCH (11:33)
[2019-12-11] MEDS ORDERED: POLYETHYLENE (MIRALAX) 17 GM PACK PO PRN (07:42)
[2019-12-11] MEDS: POLYETHYLENE (MIRALAX) 17 GM PACK PO SCH (08:00)
--- NOTE | 2019-12-11 09:10 | Surgery Progress Note ---
Date of Service December 11, 2019 Assessment & Plan (1) Abdominal pain: Patient reports improvement in symptoms since admission KUB yesterday revealed a non obstructive bowel gas pattern + BM yesterday, continues to pass gas today She has since been started on clears and tolerating well Will advance to fulls for lunch Encourage ambulation as above. improving. slowly advance diet. Admission and Anticipated Discharge Date Admission Date: December 09, 2019 Subjective Patient evaluated at bedside. She said she had a small BM yesterday and continues to pass flatus. She is tolerating clears. She denies any abdominal pain or nausea/vomiting. Physical Exam Physical Exam: awake/alert Respiratory: normal respiratory effort Gastrointestinal (Abdomen): Inspection/Auscultation: abdomen not distended Percussion/Palpation: abdomen soft; abdomen nontender Results & Data ([facility]) Vital Signs (Past 12 Hours) Vital Signs Temp Pulse Pulse Resp BP Pulse Ox 12/11/19 07:33 36.7 C 78 18 127/75 95 12/11/19 07:21 90 12/11/19 03:37 36.7 C 70 18 122/77 95 12/10/19 23:11 36.4 C L 69 18 115/66 96 12/10/19 23:08 69 PG Care Time/CCT Total # of Minutes Spent Total Time Spent with Patient: Total time spent is greater than 50% in coordination of care (as documented) at patient's floor/unit and/or counseling patient: Coding Level of Care Code 02745 Subseq Hosp Care Lvl 2 Diagnoses Abdominal pain R10.10 Abdominal location: upper abdomen, unspecified (1) Abdominal pain Abdominal location: upper abdomen, unspecified Qualified Code(s): R10.10 - Upper abdominal pain, unspecified
[2019-12-11] MEDS: PANTOprazole 40 MG in SYRINGE 0 ML IV SCH (10:47)
--- NOTE | 2019-12-11 13:08 | Hospitalist Progress Note ---
Date of Service December 11, 2019 Assessment & Plan (1) SBO (small bowel obstruction): -as per 12/09/2019 ED notes "Patient does present with abdominal pain that has been ongoing since about 2-230 this morning. The patient describes it as sharp and is moved to the back. The patient states this does feel consistent with a prior history of bowel obstruction. Patient dates that over the last 2 hours it has been constant with intermittent sharp twinges of sharp or discomfort. The patient not take anything for pain at home. Patient denies any vomiting but has had nausea. The patient did have a bowel movement yesterday and a small bowel movement this morning" -CT abdomen/pelvis pertinent for " Findings are consistent with a small bowel obstruction. A transition point is identified in the right lower quadrant." also that "There is a 1.5 cm focus of enhancing nodularity versus focally decompressed bowel seen at the transition point. A small mucosal lesion is not excluded." -admitting hospitalist noted that patient has had SBO before and likely secondary to adhesions with prior history of appendectomy and cholecystectomy. patient started on bowel rest and IV fluids and IV PPI. holding the home dose aspirin and home dose atorvastatin -12/10/2019: Patient seen and examined at bedside with also the general surgery team in the room. Patient denies acute abdomen pain today. She reports last bowel movement on Wednesday12/08/2019. Surgery consult ordered KUB "Decreased small bowel distention with nonobstructive bowel gas pattern." Patient advanced to liquid diet 12/11/2019: Patient continues to be abdomen pain free. No nausea and No vomiting. Originally general surgery plans to advance to full liquid diet. Gastroenterology was consulted as well and because of repeat CT abdomen/pelvis with oral and IV contrast contrast, patient has not tried to full liquid diet yet. Patient appears able to and tolerate the oral contrast (2) Duodenal diverticulum: -admission CT scan also with "A 2 cm presumed diverticulum is again seen arising inferiorly at the gastroduodenal junction. This appears to demonstrate an enhancing soft tissue component, and nonemergent GI follow-up is recommended. Endoscopy may provide further information if clinically warranted." -gastroenterology consulted Other Abnormal CT findings - admission CT: The endometrium appears thickened and heterogeneous for age measuring up to 1.6 cm. This is not well evaluated by CT. Follow-up with a dedicated pelvic ultrasound and nonemergent gynecology assessment is recommended to exclude underlying mucosal lesion. DVT prophylaxis: SCDs CODE STATUS Full Admission and Anticipated Discharge Date Admission Date: December 09, 2019 Subjective Patient continues to be abdomen pain free. No nausea and No vomiting. Originally general surgery plans to advance to full liquid diet. Gastroenterology was consulted as well and because of repeat CT abdomen with contrast, patient has not tried to full liquid diet yet. Patient appears able to and tolerate the oral contrast. Breathing on room air. No chest pain. no palpitations. no shortness of breath. no acute telemetry events. no dizziness. no headache. patient denies other symptoms Review of Systems Review of Systems: All systems reviewed & are unremarkable except as noted in Subjective Physical Exam Constitutional: comfortable Eyes: PERRL, conjunctivae normal, anicteric sclerae EOM intact bilaterally ENMT: external ear and nose normal, oropharynx normal Neck: normal visual inspection Respiratory: normal respiratory effort, lungs clear to auscultation Cardiovascular: Rate/Rhythm: regular rate Gastrointestinal (Abdomen): normal bowel sounds, soft, nontender, no hepatosplenomegaly Musculoskeletal: Head/Neck/Chest: normocephalic and head atraumatic Neurologic: PERRL, EOMI, accommodation nl, no face palsy, no dysarthria CN's II-XI intact bilaterally Psychiatric: A+Ox3, euthymic affect Results & Data Results & Data ([facility]) Vital Signs (Past 12 Hours) Vital Signs Temp Pulse Pulse Resp BP Pulse Ox 12/11/19 11:29 36.5 C 77 18 139/87 93 12/11/19 07:33 36.7 C 78 18 127/75 95 12/11/19 07:21 90 12/11/19 03:37 36.7 C 70 18 122/77 95
--- NOTE | 2019-12-11 13:15 | Gastrointestinal Consultation ---
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 Present on Admission?: Yes (2) Partial small bowel obstruction: Likely secondary to adhesive disease from prior surgeries. However it is reasonable to rule out small bowel lesion as CT was somewhat suggestive of the lesion and if present this could be causative. CT enteroclysis to rule out small bowel lesion, or small bowel Crohn's disease. This area would not be reachable by EGD. EUS would be unlikely to be diagnostic. No plans for endoscopy at this point. Supervising Physician Co-Signing Physician Notes I have personally seen and examined the patient with SLY Mora on 12/11/2019. Her note reflects my exam and findings. I agree with her impression and plan. Patient needs small bowel imaging. Start with small bowel X ray. may need capsule study but need to rule out small bowel stenosis to avoid capsule getting stuck. Raul King M.D. History of Present Illness Reason for Consultation: 1.5 cm focus of enhancing nodularity, sbo Requesting Physician: Dr. Asif Attending Physician: Jose Asif MD History of Present Illness Ms. Nadine Carrizales is a 69 yr old female pt of Dr. Gisell Sinha with a hx of migraines presented to the ED yesterday for symptoms that she recognized as recurrent SBO: abdominal pain, bloating and nausea. These began abruptly, waking her from sleep early yesterday morning. mostly abdominal pain. On arrival, CT of abdomen and pelvis with IV contrast suggested small bowel obstruction with question of 1.5 cm lesion "nodular, near the transition point. Since arrival, the patient tells us that she feels better with less abdominal discomfort comfort or distention. She is now tolerating clear liquids fine. Her most recent EGD was in May 2017 at which time she had accidentally ingested a pill but still had the foil and cardboard wrapping in place. There was esophageal irritation but no stomach or duodenal abnormalities. Most recent colonoscopy was 2018 for screening for colon cancer with one15 mm colon polyp in the ascending colon which was endoscopically removed, a lipoma and AVMs. Allergies Allergy/AdvReac Type Severity Reaction Status Date / Time Corticosteroids Allergy Unknown RASH/NERVOU Verified 12/09/19 10:59 (Glucocorticoids) SNESS Home Medications Home Medications Medication Instructions Recorded Confirmed Type polyethylene glycol 3350 [Miralax] 17 g PO DAILY PRN #30 ea 01/25/19 12/09/19 Rx aspirin [Aspir-Low] 81 mg PO DAILY PRN 12/09/19 12/09/19 History atorvastatin 10 mg PO QAM 12/09/19 12/09/19 History linaclotide [Linzess] 290 mcg PO QAM PRN 12/09/19 12/09/19 History omeprazole 20 mg PO QAM 12/09/19 12/09/19 History Patient History Medical History Migraine Surgical History Hx of appendectomy Hx of cholecystectomy S/P tonsillectomy and adenoidectomy Social History Smoking Status: Never smoker Hx Alcohol Use: Yes Alcohol type: wine Hx Substance Use: No Preferred Language: Greenlandic Communication Ability: Effective Digital Commentator Required: No Beliefs That Will Affect Care: None marital status: Current Living Situation: Spouse Other Information That Helps Us Care for You: No Feels Safe at Home: Yes Safety Concerns: Feels Safe At This Time Assistive Devices: None Review of Systems Review of Systems: ROS: Gen: Denies weakness, fevers, weight loss Eyes: No eye redness, or pain, no recent vision changes Resp: No SOB, no cough Cardio: No palpitations/irregular beats, no chest pain GI: As per HPI otherwise negative. : Denies pain on urination Skin: No jaundice, itching or new rashes Physical Exam Constitutional: WD/WN, vitals as above Eyes: PERRL, conjunctivae normal, anicteric sclerae ENMT: external ear and nose normal, oropharynx normal Neck: trachea midline, no thyromegaly Respiratory: normal respiratory effort, lungs clear to auscultation Cardiovascular: RRR, no murmur, no edema Gastrointestinal (Abdomen): normal bowel sounds, soft, nontender, no hepatosplenomegaly Skin: no rashes, warm and dry no jaundice Neurologic: PERRL, EOMI, accommodation nl, no face palsy, no dysarthria Psychiatric: A+Ox3, euthymic affect Lymphatic: no cervical or axillary lymphadenopathy Results & Data ([facility]) Vital Signs (Past 12 Hours) Vital Signs Temp Pulse Pulse Resp BP Pulse Ox 12/11/19 11:29 36.5 C 77 18 139/87 93 12/11/19 07:33 36.7 C 78 18 127/75 95 12/11/19 07:21 90 12/11/19 03:37 36.7 C 70 18 122/77 95
[2019-12-11] MEDS ORDERED: IOVERSOL 100ml IV ONE (13:37)
--- NOTE | 2019-12-11 14:18 | CT Scan Report ---
CT ENTEROGRAPHY CLINICAL HISTORY: Generalized abdominal pain. COMPARISON STUDY: Abdominal CT scans dated 12/09/2019, 01/23/2019, 05/09/2016, and 10/13/2011. TECHNIQUE: Following the IV administration of 94 cc of Optiray 320, CT enterography of the abdomen a nd pelvis is performed from the lung bases to the proximal femora. Images are reviewed in the axial, sagittal, and coronal planes. IV contrast was administered without complication. The small bowel is d istended with negative enteric contrast. A dose lowering technique was utilized adhering to the princ iplall of MARLENY. CT DOSE: 755.77 mGy.cm FINDINGS: Lung bases: The heart is normal in size and without pericardial effusion. The lung bases are clear no ting dependent atelectasis. Liver: The contrast-enhanced liver is normal in size, contour, and attenuation. There is minimal cent ral intrahepatic biliary ductal dilatation. The hepatic veins and portal veins are patent. A 1.8 cm c yst is again seen in the right lobe. Gallbladder: Surgically absent noting clips in the gallbladder fossa. Spleen: Normal in size and attenuation. Pancreas: Moderately atrophic and grossly unremarkable. Adrenal glands: Unremarkable. Kidneys: The contrast enhanced kidneys demonstrate cortical atrophy and are without hydronephrosis. F oci of cortical scarring are present in both kidneys. The kidneys enhance symmetrically. Abdominal vasculature: The abdominal aorta is normal in course and caliber noting mild atheroscleroti c calcification. Bowel: Findings of small bowel obstruction seen on 12/09/2019 result. Mild to moderate fecal retentio n is noted in the right colon. There is no evidence of stricture. No mucosal hyperemia is identified. The appendix is not identified and reported surgically absent. A 2 cm presumed diverticulum arising from the inferior aspect of the gastroduodenal junction is again seen anterior to the pancreas on im age #150. This has been present dating back to at least 2017. Peritoneum: There is no intraperitoneal free air. Trace perisplenic fluid is identified. Lymphadenopathy: None. Pelvic viscera: The bladder is normal as visualized. The endometrium appears thickened and heterogene ous for age measuring up to 1.6 cm in diameter. Surgical clips are noted in the pelvis bilaterally. N o adnexal lesion is seen. There is trace free fluid in the pelvis. Skeletal structures: The skeletal structures are osteopenic. There is mild to moderate lumbosacral sp ondylosis as well as mild scoliosis. No lytic or blastic lesions are seen. IMPRESSION: 1. Findings of small bowel obstruction have resolved as compared to 12/09/2019. 2. Again seen is abnormal endometrial thickening This is not well evaluated by CT. Follow-up with a d edicated pelvic ultrasound and nonemergent gynecology assessment is recommended to exclude underlying mucosal lesion. 3. There is unchanged appearance of a 2 cm structure between the pancreatic head and the stomach. Thi s arises inferiorly at the gastroduodenal junction, and although this may resent a gastric diverticul um the location and appearance are atypical. Additionally, there may be a soft tissue component. Foll ow-up with endoscopy is recommended for further assessment. 4. Additional findings as above. ACT 112: Negative or not required by law. Electronically signed by: Bryn Kelsey M.D. 12/11/2019 2:17 PM
--- NOTE | 2019-12-11 17:03 | Communication Note ---
Date of Service: December 11, 2019 discussed with patient about results of the CT enteroclysis patient is able to make bowel movements to clear the oral contrast from the test. advance diet to regular diet for dinner. re-assess if any return of any abdominal systems after tomorrow's breakfast
[2019-12-12] MEDS: POLYETHYLENE (MIRALAX) 17 GM PACK PO SCH (08:21)
--- NOTE | 2019-12-12 09:22 | Surgery Progress Note ---
Date of Service December 12, 2019 Assessment & Plan (1) Partial small bowel obstruction: clinically resolved no indication for surgery. will s/o. call if needed. Admission and Anticipated Discharge Date Admission Date: December 09, 2019 Subjective doing great. no complaints. tolerated breakfast Physical Exam Physical Exam: alert. nad abd: soft. nd. nt. Results & Data ([facility]) Vital Signs (Past 12 Hours) Vital Signs Temp Pulse Resp BP Pulse Ox 12/12/19 07:51 36.9 C 81 18 104/68 96 12/11/19 23:00 36.2 C L 69 18 108/65 97 PG Care Time/CCT Total # of Minutes Spent Total Time Spent with Patient: Total time spent is greater than 50% in coordination of care (as documented) at patient's floor/unit and/or counseling patient: Coding Level of Care Code 41123 Subseq Hosp Care Lvl 2 Diagnoses Partial small bowel obstruction K56.600
--- NOTE | 2019-12-12 10:01 | Hospitalist Progress Note ---
Date of Service December 12, 2019 Assessment & Plan (1) SBO (small bowel obstruction): -as per 12/09/2019 ED notes "Patient does present with abdominal pain that has been ongoing since about 2-230 this morning. The patient describes it as sharp and is moved to the back. The patient states this does feel consistent with a prior history of bowel obstruction. Patient dates that over the last 2 hours it has been constant with intermittent sharp twinges of sharp or discomfort. The patient not take anything for pain at home. Patient denies any vomiting but has had nausea. The patient did have a bowel movement yesterday and a small bowel movement this morning" -CT abdomen/pelvis pertinent for " Findings are consistent with a small bowel obstruction. A transition point is identified in the right lower quadrant." also that "There is a 1.5 cm focus of enhancing nodularity versus focally decompressed bowel seen at the transition point. A small mucosal lesion is not excluded." -admitting hospitalist noted that patient has had SBO before and likely secondary to adhesions with prior history of appendectomy and cholecystectomy. patient started on bowel rest and IV fluids and IV PPI. holding the home dose aspirin and home dose atorvastatin -12/10/2019: Patient seen and examined at bedside with also the general surgery team in the room. Patient denies acute abdomen pain today. She reports last bowel movement on Wednesday12/08/2019. Surgery consult ordered KUB "Decreased small bowel distention with nonobstructive bowel gas pattern." Patient advanced to liquid diet 12/11/2019: Patient continues to be abdomen pain free. No nausea and No vomiting. CT abdomen/pelvis performed on 12/11/[address] enteroclysis (GI note that right lower quadrant 1.5 cm focality at transition point of the bowel obstruction on admission CT abdomen and pelvis "would not be reachable by EGD. EUS would be unlikely to be diagnostic. No plans for endoscopy at this point.") results of the CT enteroclysis "1. Findings of small bowel obstruction have resolved as compared to 12/09/2019. 2. Again seen is abnormal endometrial thickening This is not well evaluated by CT. Follow-up with a dedicated pelvic ultrasound and nonemergent gynecology assessment is recommended to exclude underlying mucosal lesion. 3. There is unchanged appearance of a 2 cm structure between the pancreatic head and the stomach. This arises inferiorly at the gastroduodenal junction, and although this may resent a gastric diverticulum the location and appearance are atypical. Additionally, there may be a soft tissue component. Follow-up with endoscopy is recommended for further assessment." 12/12/2019: Patient tolerated regular diet since 12/11/2019. Patient ready for hospital discharge on 12/12/2019. No Nausea. No vomiting. No abdomen pain. No chest pain. No shortness of breath. No dizziness. Ambulatory discharge appointments 12/15/2019 12:00 PM Provider Gisell Sanders MD Department Internal Medicine [facility] 12/21/2019 2:30 PM Provider SLY Linn Department Gastroenterology, [facility] -Patient also to follow with Gastroenterology whether any future needs for endoscopy/colonoscopy. Patient also advised to schedule appointment with OBGYN clinic Duodenal diverticulum, Other Abnormal CT findings of the endometrium radiology IMPRESSION on 12/11/2019 CT enteroclysis imaging: (1. Findings of small bowel obstruction have resolved as compared to 12/09/2019. 2. Again seen is abnormal endometrial thickening This is not well evaluated by CT. Follow-up with a dedicated pelvic ultrasound and nonemergent gynecology assessment is recommended to exclude underlying mucosal lesion. 3. There is unchanged appearance of a 2 cm structure between the pancreatic head and the stomach. This arises inferiorly at the gastroduodenal junction, and although this may resent a gastric diverticulum the location and appearance are atypical. Additionally, there may be a soft tissue component. Follow-up with endoscopy is recommended for further assessment.) (2) Duodenal diverticulum: -admission CT scan also with "A 2 cm presumed diverticulum is again seen arising inferiorly at the gastroduodenal junction. This appears to demonstrate an enhancing soft tissue component, and nonemergent GI follow-up is recommended. Endoscopy may provide further information if clinically warranted." -gastroenterology consulted and CT enterocylsis completed on 12/11/2019, outpatient GI follow up Other Abnormal CT findings - admission CT: The endometrium appears thickened and heterogeneous for age measuring up to 1.6 cm. This is not well evaluated by CT. Follow-up with a dedicated pelvic ultrasound and nonemergent gynecology assessment is recommended to exclude underlying mucosal lesion. -seen again on CT enterocylsis on 12/11/2019, outpatient OBGYN follow up DVT prophylaxis: SCDs CODE STATUS Full Admission and Anticipated Discharge Date Admission Date: December 09, 2019 Subjective 12/12/2019: Patient tolerated regular diet since 12/11/2019. Patient ready for hospital discharge on 12/12/2019. No Nausea. No vomiting. No abdomen pain. No chest pain. No shortness of breath. No dizziness. Ambulatory. Discharge plans and instructions discussed at length Physical Exam Constitutional: comfortable Eyes: PERRL, conjunctivae normal, anicteric sclerae EOM intact bilaterally ENMT: external ear and nose normal, oropharynx normal Neck: normal visual inspection Respiratory: normal respiratory effort, lungs clear to auscultation Cardiovascular: Rate/Rhythm: regular rate Gastrointestinal (Abdomen): normal bowel sounds, soft, nontender, no hepatosplenomegaly Musculoskeletal: Head/Neck/Chest: normocephalic and head atraumatic Neurologic: PERRL, EOMI, accommodation nl, no face palsy, no dysarthria CN's II-XI intact bilaterally Psychiatric: A+Ox3, euthymic affect Results & Data Results & Data ([facility]) Vital Signs (Past 12 Hours) Vital Signs Temp Pulse Resp BP Pulse Ox 12/12/19 07:51 36.9 C 81 18 104/68 96 12/11/19 23:00 36.2 C L 69 18 108/65 97
--- NOTE | 2019-12-12 10:06 | Discharge Summary ---
Date of Service December 12, 2019 Admission HPI Per Admitting Provider She is a 69-year-old female with a significant past medical history of intestinal obstruction in the past and constipation apparently woke up early this morning around 2 AM with abdominal pain, bloating with nausea. She has had history of intestinal obstruction about 1 year ago. She vomited once in the emergency room following intravenous pain medication. Denies any fever and/or chills, no cough or phlegm, no shortness of breath of any significance and no problem with her urine and the bowel habit. Denies any headache, blurred vision or numbness or tingling involving any of the extremities. She was noted to have small bowel obstruction with transition point at right lower quadrant noted in CT scan of the abdomen and pelvis. She did not require any NG tube placement on admission. Principal Diagnosis small bowel obstruction, partial Duodenal diverticulum Endometrial Thickening by CT scan Discharge Exam Constitutional comfortable Eyes PERRL, conjunctivae normal, anicteric sclerae EOM intact bilaterally ENMT external ear and nose normal, oropharynx normal Neck normal visual inspection Respiratory normal respiratory effort, lungs clear to auscultation Cardiovascular Rate/Rhythm: regular rate Gastrointestinal (Abdomen) normal bowel sounds, soft, nontender, no hepatosplenomegaly Musculoskeletal Head/Neck/Chest: normocephalic and head atraumatic Neurologic PERRL, EOMI, accommodation nl, no face palsy, no dysarthria CN's II-XI intact bilaterally Psychiatric A+Ox3, euthymic affect Discharge Data Allergies Allergy/AdvReac Type Severity Reaction Status Date / Time Corticosteroids Allergy Unknown RASH/NERVOU Verified 12/09/19 10:59 (Glucocorticoids) SNESS Consultations 12/09/19 12:36 ED Decision to Admit Stat 12/09/19 12:53 Consult General Surgery Routine 12/11/19 06:54 Consult Gastroenterology Routine Ordered Studies 12/09/19 10:01 CT abd pelvis IV con only Stat 12/11/19 10:56 CT abd pelvis oral and IV con Routine Hospital Course (1) SBO (small bowel obstruction): -as per 12/09/2019 ED notes "Patient does present with abdominal pain that has been ongoing since about 2-230 this morning. The patient describes it as sharp and is moved to the back. The patient states this does feel consistent with a prior history of bowel obstruction. Patient dates that over the last 2 hours it has been constant with intermittent sharp twinges of sharp or discomfort. The patient not take anything for pain at home. Patient denies any vomiting but has had nausea. The patient did have a bowel movement yesterday and a small bowel movement this morning" -CT abdomen/pelvis pertinent for " Findings are consistent with a small bowel obstruction. A transition point is identified in the right lower quadrant." also that "There is a 1.5 cm focus of enhancing nodularity versus focally decompressed bowel seen at the transition point. A small mucosal lesion is not excluded." -admitting hospitalist noted that patient has had SBO before and likely secondary to adhesions with prior history of appendectomy and cholecystectomy. patient started on bowel rest and IV fluids and IV PPI. holding the home dose aspirin and home dose atorvastatin -12/10/2019: Patient seen and examined at bedside with also the general surgery team in the room. Patient denies acute abdomen pain today. She reports last bowel movement on Wednesday12/08/2019. Surgery consult ordered KUB "Decreased small bowel distention with nonobstructive bowel gas pattern." Patient advanced to liquid diet 12/11/2019: Patient continues to be abdomen pain free. No nausea and No vomiting. CT abdomen/pelvis performed on 12/11/[address] enteroclysis (GI note that right lower quadrant 1.5 cm focality at transition point of the bowel obstruction on admission CT abdomen and pelvis "would not be reachable by EGD. EUS would be unlikely to be diagnostic. No plans for endoscopy at this point.") results of the CT enteroclysis "1. Findings of small bowel obstruction have resolved as compared to 12/09/2019. 2. Again seen is abnormal endometrial thickening This is not well evaluated by CT. Follow-up with a dedicated pelvic ultrasound and nonemergent gynecology assessment is recommended to exclude underlying mucosal lesion. 3. There is unchanged appearance of a 2 cm structure between the pancreatic head and the stomach. This arises inferiorly at the gastroduodenal junction, and although this may resent a gastric diverticulum the location and appearance are atypical. Additionally, there may be a soft tissue component. Follow-up with endoscopy is recommended for further assessment." 12/12/2019: Patient tolerated regular diet since 12/11/2019. Patient ready for hospital discharge on 12/12/2019. No Nausea. No vomiting. No abdomen pain. No chest pain. No shortness of breath. No dizziness. Ambulatory discharge appointments 12/15/2019 12:00 PM Provider Gisell Sanders MD Department Internal Medicine [facility] 12/21/2019 2:30 PM Provider SLY Linn Department Gastroenterology, [facility] -Patient also to follow with Gastroenterology whether any future needs for endoscopy/colonoscopy. Patient also advised to schedule appointment with OBGYN clinic Duodenal diverticulum, Other Abnormal CT findings of the endometrium radiology IMPRESSION on 12/11/2019 CT enteroclysis imaging: (1. Findings of small bowel obstruction have resolved as compared to 12/09/2019. 2. Again seen is abnormal endometrial thickening This is not well evaluated by CT. Follow-up with a dedicated pelvic ultrasound and nonemergent gynecology assessment is recommended to exclude underlying mucosal lesion. 3. There is unchanged appearance of a 2 cm structure between the pancreatic head and the stomach. This arises inferiorly at the gastroduodenal junction, and although this may resent a gastric diverticulum the location and appearance are atypical. Additionally, there may be a soft tissue component. Follow-up with endoscopy is recommended for further assessment.) (2) Duodenal diverticulum: -admission CT scan also with "A 2 cm presumed diverticulum is again seen arising inferiorly at the gastroduodenal junction. This appears to demonstrate an enhancing soft tissue component, and nonemergent GI follow-up is recommended. Endoscopy may provide further information if clinically warranted." -gastroenterology consulted and CT enterocylsis completed on 12/11/2019, outpatient GI follow up Other Abnormal CT findings - admission CT: The endometrium appears thickened and heterogeneous for age measuring up to 1.6 cm. This is not well evaluated by CT. Follow-up with a dedicated pelvic ultrasound and nonemergent gynecology assessment is recommended to exclude underlying mucosal lesion. -seen again on CT enterocylsis on 12/11/2019, outpatient OBGYN follow up DVT prophylaxis: SCDs CODE STATUS Full Total Time Total Time Spent Total Time Spent (In Minutes): 40 minutes Total Time Includes: Examination of the Patient, Discharge Planning, Medication Reconciliation and Communication With Other Providers Discharge Plan Discharge Items Patient Disposition: Home - Self-Care Reason For Visit: SBO Discharge Diagnosis: small bowel obstruction, partial Duodenal diverticulum Endometrial Thickening by CT scan Condition on Discharge: Good Activity: Resume your previous activity Non-emergency contact: Primary Care Provider and Licensed Professional Counselor Call non-emergency contact if: you have any medication questions Follow-up/Referrals: Gisell Alfonso MD [Primary Care Provider] - (Date & Time 12/15/2019 12:00 PM Provider Gisell Sanders MD Department Internal Medicine [facility] ) Diet: Regular Addtl Attending Provider Instructions: discharge appointments 12/15/2019 12:00 PM Provider Gisell Sanders MD Department Internal Medicine [facility] 12/21/2019 2:30 PM Provider SLY Linn Department Gastroenterology, [facility] -Patient also to follow with Gastroenterology whether any future needs for endoscopy/colonoscopy. Patient also advised to schedule appointment with OBGYN clinic Duodenal diverticulum, Other Abnormal CT findings of the endometrium radiology IMPRESSION on 12/11/2019 CT enteroclysis imaging: (1. Findings of small bowel obstruction have resolved as compared to 12/09/2019. 2. Again seen is abnormal endometrial thickening This is not well evaluated by CT. Follow-up with a dedicated pelvic ultrasound and nonemergent gynecology assessment is recommended to exclude underlying mucosal lesion. 3. There is unchanged appearance of a 2 cm structure between the pancreatic head and the stomach. This arises inferiorly at the gastroduodenal junction, and although this may resent a gastric diverticulum the location and appearance are atypical. Additionally, there may be a soft tissue component. Follow-up with endoscopy is recommended for further assessment.) CT abdomen/pelvis performed on 12/11/[address] enteroclysis (GI note that right lower quadrant 1.5 cm focality at transition point of the bowel obstruction on admission CT abdomen and pelvis "would not be reachable by EGD. EUS would be unlikely to be diagnostic. No plans for endoscopy at this point.") results of the CT enteroclysis "1. Findings of small bowel obstruction have resolved as compared to 12/09/2019. 2. Again seen is abnormal endometrial thickening This is not well evaluated by CT. Follow-up with a dedicated pelvic ultrasound and nonemergent gynecology assessment is recommended to exclude underlying mucosal lesion. 3. There is unchanged appearance of a 2 cm structure between the pancreatic head and the stomach. This arises inferiorly at the gastroduodenal junction, and although this may resent a gastric diverticulum the location and appearance are atypical. Additionally, there may be a soft tissue component. Follow-up with endoscopy is recommended for further assessment." Pending Studies at Discharge: No Stand-Alone Forms: [facility], Smoking Cessation Medications and DC Order Prescriptions: Continued polyethylene glycol 3350 [Miralax] 17 gram Powder In Packet 17 g PO DAILY PRN (Reason: Constipation) Qty: 30 RF: 0 atorvastatin 10 mg tablet 10 mg PO QAM RF: 0 omeprazole 20 mg capsule,delayed release(DR/EC) 20 mg PO QAM RF: 0 Linzess 290 mcg capsule 290 mcg PO QAM PRN (Reason: Constipation) RF: 0 Discontinued aspirin [Aspir-Low] 81 mg Tablet,Delayed Release (Dr/Ec) 81 mg PO DAILY PRN (Reason: .) RF: 0 Discharge Orders: Discharge Order (Routine); Ordered 12/12/19 Ordered By: Jose Asif Admission Data Admit Date/Time: 12/09/19 12:53 Attending Provider: Jose Asif Admit Provider: Manuel Powell Primary Care Provider: Gisell Alfonso Other Providers: Manuel Powell ; Teto Newton ; Polina Huntley ; Roberta Serna ; Kayden Camarillo ; Javier Frank ; Shirley Chisholm ; Alea Ortiz ; Sam Bradley Jr ; Yuri Tang ; Summer Zayas ; Raul King
--- NOTE | 2019-12-12 11:35 | Gastroenterology Progress Note ---
Date of Service December 12, 2019 Assessment & Plan (1) Duodenal diverticulum: Seen on prior imaging and likely unrelated to current symptoms, however, will order OP EGD/EUS to evaluate area in question on CT enterography. Pt asks for GI f/u after. Her sees SLY Iqbal they are very happy with her care. I will place order in EPIC and ask schedulers to reach out to the pt to arrange in the next 1-2 m with office follow up after (2) Partial small bowel obstruction: Likely secondary to adhesive disease from prior surgeries. Clinically, SBO symptoms are resolved. . Admission and Anticipated Discharge Date Admission Date: December 09, 2019 Supervising Physician Co-Signing Physician Notes I have personally seen and examined the patient with SLY Mora on 12/12/2019. Her note reflects my exam and findings. I agree with her impression and plan. Will arrange out patient EGD/EUS. Discussed with patient who agrees with plan. Raul King M.D. Subjective Admitted on 12/08 with abd pain, CT with partial SBO. Hx of prior abd surgeries and prior partial SBOs. Hx of duodenal diverticulum. CT enterography with question of 2cm mass between stomach and pancreas vs. duodenal diverticulum. Today: pt feels well, asking to go home, eating a low fiber diet w/o pain. Passed a small, loose BM today. Review of Systems Review of Systems: ROS: Gen: Denies weakness, fevers, weight loss Eyes: No eye redness, or pain, no recent vision changes Resp: No SOB, no cough Cardio: No palpitations/irregular beats, no chest pain GI: As per HPI otherwise negative. : Denies pain on urination Skin: No jaundice, itching or new rashes Physical Exam Constitutional: WD/WN, vitals as above Eyes: PERRL, conjunctivae normal, anicteric sclerae ENMT: external ear and nose normal, oropharynx normal Neck: trachea midline, no thyromegaly Respiratory: normal respiratory effort, lungs clear to auscultation Cardiovascular: RRR, no murmur, no edema Gastrointestinal (Abdomen): normal bowel sounds, soft, nontender, no hepatosplenomegaly Skin: no rashes, warm and dry no jaundice Neurologic: PERRL, EOMI, accommodation nl, no face palsy, no dysarthria Psychiatric: A+Ox3, euthymic affect Lymphatic: no cervical or axillary lymphadenopathy Results & Data ([facility]) Vital Signs (Past 12 Hours) Vital Signs Temp Pulse Pulse Resp BP BP Pulse Ox 12/12/19 10:24 36.9 C 69 81 18 104/68 132/70 96 12/12/19 07:51 36.9 C 81 18 104/68 96 Diagnostic Findings CTA 12/11/19: 1. Findings of small bowel obstruction have resolved as compared to 12/09/2019. 2. Again seen is abnormal endometrial thickening This is not well evaluated by CT. Follow-up with a dedicated pelvic ultrasound and nonemergent gynecology assessment is recommended to exclude underlying mucosal lesion. 3. There is unchanged appearance of a 2 cm structure between the pancreatic head and the stomach. This arises inferiorly at the gastroduodenal junction, and although this may resent a gastric diverticulum the location and appearance are atypical. Additionally, there may be a soft tissue component. Follow-up with endoscopy is recommended for further assessment. 4. Additional findings as above.
== END 2019-12-12 11:30 | disposition home or self-care (01) | DRG 390 ==
LOC: ED 09:43 → SUATTDRO 12:53 → 2N 12:53

== ENCOUNTER 2024-01-17 18:27 | Inpatient (IN) ==
[2024-01-17 19:13] LABS: Basophils # (auto) 0.05 K/uL (0.00-0.20); Basophils % (auto) 0.5 %; Eosinophils # (auto) 0.01 K/uL (0.00-0.50); Eosinophils % (auto) 0.1 %; Hematocrit (blood only) 40.6 % (37.0-47.0); Hemoglobin 13.6 g/dl (12.0-16.0); Immature Granulocytes # (auto) 0.02 K/uL (0.01-0.20); Immature Granulocytes % (auto) 0.2 %; Lymphocytes # (auto) 0.71 K/uL (1.20-3.40); Lymphocytes % (auto) 7.7 %; Mean Corpuscular Hgb Conc 33.5 g/dL (32.0-36.0); Mean Corpuscular Volume 89.4 fL (80.0-100.0); Mean Platelet Volume 9.3 fL (9.4-12.4); Monocytes # (auto) 0.34 K/uL (0.11-0.59); Monocytes % (auto) 3.7 %; Neutrophils # (auto) 8.09 K/uL (1.40-6.50); Neutrophils % (auto) 87.8 %; Platelet Count 519 K/uL (130-400); RDW Coefficient of Variation 13.4 % (11.5-14.5); RDW Standard Deviation 43.8 fL (36.4-46.3); Red Blood Count 4.54 M/uL (4.20-5.40); White Blood Count 9.22 K/ul (4.8-10.8)
[2024-01-17 19:48] LABS: Albumin Globulin Ratio 1.3 (0.9-2); Albumin Level 4.2 gm/dl (3.4-5.0); BUN Creatinine Ratio 23.2 (10-20); Bilirubin,Total 0.5 mg/dl (0.2-1.0); Calcium 9.3 mg/dl (8.6-10.3); Creatinine Clr Calc Pharmacy 83.3 ml/min; Globulin 3.2 gm/dl (2.5-4.0); Potassium 4.2 mmol/L (3.5-5.1); Total Protein 7.4 gm/dl (6.0-8.3); Troponin I High Sensitivity 3.2 pg/ml (0-14)
[2024-01-17 20:10] LABS: INR 0.9 (0.9-1.1); Partial Thromboplastin Ratio 0.9; Partial Thromboplastin Time 25 Seconds (21-31); Prothrombin Time 10.3 Seconds (9.0-12.0)
[2024-01-17] MEDS: ACETAMINOPHEN 1,000 MG/100 ML VIAL IV STA (22:21)
[2024-01-17] MEDS: SODIUM CHLORIDE 0.9% 1,000 ML IV ONE (22:21)
[2024-01-17] MEDS: ONDANSETRON INJ 2 MG/ML 2 ML VIAL IV STA (22:21)
[2024-01-17] MEDS: FAMOTIDINE 20MG IV PUSH 20 MG/5 ML SYR IV STA (22:21)
[2024-01-17] MEDS: OPTIRAY 320 100ml IV ONE (22:56)
[2024-01-17 23:39] LABS: Adenovirus PCR Not Detected (NotDetected); Bordetella parapertussis PCR Not Detected (NotDetected); Bordetella pertussis PCR Not Detected (NotDetected); Chlamydia pneumoniae PCR Not Detected (NotDetected); Coronavirus 229E PCR Not Detected (NotDetected); Coronavirus CoV-2 (COVID19)PCR Not Detected (NotDetected); Coronavirus HKU1 PCR Not Detected (NotDetected); Coronavirus NL63 PCR Not Detected (NotDetected); Coronavirus OC43PCR Not Detected (NotDetected); Human Metapneumovirus PCR Not Detected (NotDetected); Influenza A PCR Not Detected (NotDetected); Influenza B PCR Not Detected (NotDetected); Mycoplasma pneumoniae PCR Not Detected (NotDetected); Parainfluenza Virus 1 PCR Not Detected (NotDetected); Parainfluenza Virus 2 PCR Not Detected (NotDetected); Parainfluenza Virus 3 PCR Not Detected (NotDetected); Parainfluenza Virus 4 PCR Not Detected (NotDetected); Respiratory Syncytial VirusPCR Not Detected (NotDetected); Rhinovirus/Enterovirus PCR Not Detected (NotDetected)
--- NOTE | 2024-01-17 23:49 | XRay Report ---
Exam(s): XR CXR 1 VIEW EXAM: XR Chest, 1 View CLINICAL HISTORY: Reason for exam: Chest pain, nonspecific. TECHNIQUE: Frontal view of the chest. COMPARISON: No relevant prior studies available. FINDINGS: Lungs: Unremarkable. No acute infiltration, atelectasis or mass. Pleural space: Unremarkable. No pneumothorax or pleural fluid. Heart: Unremarkable. No cardiomegaly. Mediastinum: Unremarkable. Normal mediastinal contour. Bones/joints: No acute findings. IMPRESSION: No acute findings in the chest. Electronically signed by: Sam Bruno MD 01/17/24 23:27 PM
[2024-01-18 00:02] LABS: Appearance Urine Clear (Clear); Bilirubin Urine Negative (Negative); Blood Urine Trace-intact (Negative); Color Urine Yellow; Glucose Urine UA Negative (Negative); Ketones Urine Negative (Negative); Leukocyte Esterase Urine Trace (Negative); Nitrite Urine Negative (Negative); Protein Urine Negative (Negative); Specific Gravity Urine 1.015 (1.000-1.030); Urobilinogen Urine Negative (Negative)
--- NOTE | 2024-01-18 00:03 | Emergency Department Note ---
Impression & Plan Headache, Nausea & vomiting, Generalized weakness, History of neuroendocrine cancer ED Provider Note NAME: PRAMOD STEARNS AGE: 73 SEX: F : 1950 ARRIVES VIA: Walk-In INFORMANT: Patient ED PROVIDER(S): Gerhard Alexandre MD CHIEF COMPLAINT: Headache, nausea, vomiting, generalized weakness PLAN: Disposition: Admit MEDICAL DECISION MAKING: The patient is a pleasant 73-year-old woman with a past medical history of neuroendocrine tumor with history of Whipple procedure previously who presents to the emergency department via walk-in for evaluation of abdominal pain, nausea, vomiting, frequency of stool but formed and generalized weakness that began abruptly at 5 AM this morning with associated headache and has slowly progressed. Patient reports as an aside that she has been scheduled for a right shoulder replacement on Wednesday. Patient adds that she recently had a second monthly intramuscular injection through her oncology office for management of her neuroendocrine tumor. She understands that all of her symptoms are known side effects to this. Otherwise, she denies any known sick contacts. She denies chest pain, shortness of breath, symptoms. Of note, the patient did arrive to emergency department during time of high volume, acuity and prolonged emergency department waiting times. Critical pathways initiated from triage. EKG without overt acute ischemia. CXR negative for acute cardiopulmonary process per my personal preliminary review/interpretation. WBC, H/H within limits. Platelets 519K, nonspecific. Chemistry without metabolic acidosis. BUNs/creatinine is 23 consistent with patient's clinically dry appearance. LFTs unremarkable. High-sensitivity troponin 3.2, within normal limits. Lipase is not elevated. UA without convincing evidence of infection. Respiratory BioFire was negative. CT of the head and abdomen pelvis were performed and were negative for acute abnormalities. Patient was treated with IV hydration, IV APAP, Zofran, famotidine. However, patient reported continuation of symptoms and so additional treatment with Phenergan provided. Given persistence of patient's symptoms, which are suspected to be related to her new monthly lanreotide injection, patient and family agree with plan for admission for further management. Case was discussed with Dr. Van, [facility] hospitalist, who will evaluate the patient for admission. Further management per admitting team. Triage Nursing notes reviewed and agree them. Prior/external medical records reviewed Vital Signs: reviewed Differential diagnosis: Infection, dehydration, metabolic abnormality, hypo/hyperglycemia, electrolyte disturbance, anemia, hypoxia, cardiac sources, intracerebral event, toxicologic, neurologic, as well as other pathologies. ER treatment provided: See below. Diagnostics interpreted by me: ECG: Normal sinus rhythm, 99 bpm, no ectopy, no overt ST elevation or depression, QTc 415, QRS 86. Cardiac Monitoring: An order for continuous cardiac monitoring was placed and demonstrated Normal sinus rhythm, 99 bpm, no ectopy. Laboratory studies: See below Imaging studies: See below Consultation(s): Case was discussed with Dr. Van, [facility] hospitalist, who will evaluate the patient for admission. HPI: The patient is a pleasant 73-year-old woman with a past medical history of neuroendocrine tumor with history of Whipple procedure previously who presents to the emergency department via walk-in for evaluation of abdominal pain, nausea, vomiting, frequency of stool but formed and generalized weakness that began abruptly at 5 AM this morning with associated headache and has slowly progressed. Patient reports as an aside that she has been scheduled for a right shoulder replacement on Wednesday. Patient adds that she recently had a second monthly intramuscular injection through her oncology office for management of her neuroendocrine tumor. She understands that all of her symptoms are known side effects to this. Otherwise, she denies any known sick contacts. She denies chest pain, shortness of breath, symptoms. ROS: See above HPI for pertinent positives & negatives. A total of 10 systems reviewed and were otherwise negative. VITALS:See Below PHYSICAL EXAMINATION: GENERAL: Awake, alert, fatigued-appearing, in no distress HENT: Normocephalic, atraumatic. Oropharynx with dry mucous membranes and otherwise unremarkable. EYES: Normal conjunctiva. Sclera non-icteric. EOMI. No nystamgus. PEARRL. NECK: Supple. No nuchal rigidity. FROM. No JVD. RESPIRATORY: Clear to auscultation. CARDIAC: Regular rate, normal rhythm. Extremities warm and well perfused. Pulses equal. ABDOMEN: Soft, non-distended. No tenderness to palpation. No rebound or guarding. No masses. MUSCULOSKELETAL: Chest examination reveals no tenderness. The back is symmetrical on inspection without obvious abnormality. There is no CVA tenderness to palpation. No joint edema. LOWER EXTREMITIES: Calves are equal size bilaterally and non-tender. No edema. No discoloration. NEURO: No focal sensory or motor deficits noted. 5/5 strength and SILT x 4 extremities. Cerebellar function intact including szurno-[id number]-[id number], alternating palms. SKIN: No rash or jaundice noted. Gerhard Alexandre MD Past Med/Surg History Problem List (Updated 01/18/24 @ 06:55 by Gerhard Alexandre MD) History of neuroendocrine cancer (Acute) Generalized weakness (Acute) Nausea & vomiting (Acute) Headache (Acute) Nausea and vomiting Encounter for pre-operative examination Medical History AAA (abdominal aortic aneurysm) History of postoperative nausea and vomiting Diverticular disease denies h/o diverticulitis GERD (gastroesophageal reflux disease) controlled, stable per pt History of COVID-19 (~2019) denies hospitalization-symptoms resolved Osteoarthritis Hx SBO just blockage, no cancer History of pancreatic cancer (~2020) s/p surgery Liver cancer dx Oct 2023 > gets chemo shot once monthly in hip (states mild nausea and occasional diarrhea are side effects so far) > Eleonora Jayess with [facility] > states was referred to transplant clinic-[facility] Migraine Surgical History History of Whipple procedure History of cataract surgery bilat History of esophagogastroduodenoscopy (EGD) History of kidney surgery 1974 > because "kidney dropped, they tacked back in place" History of colonoscopy History of repair of rotator cuff right Hx of resection of small bowel just blockage, no cancer Hx of resection of pancreas 2020 S/P tonsillectomy and adenoidectomy Hx of appendectomy Hx of cholecystectomy Family History Sister Diabetes Brother Diabetes Brother Diabetes Sister Diabetes Social History Smoking Status: Never smoker Second Hand Exposure: No; Do You Dip or Chew Tobacco: No; Hx Alcohol Use: Yes Alcohol type: beer Hx Substance Use: No Preferred Language: Mexican Communication Ability: Effective 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 Beliefs That Will Affect Care: None marital status: Current Living Situation: Spouse Other Information That Helps Us Care for You: No Feels Safe at Home: Yes Safety Concerns: Feels Safe At This Time Assistive Devices: None Allergies Allergies Allergy/AdvReac Type Severity Reaction Status Date / Time Corticosteroids Allergy Intermediate RASH/NERVOU Verified 12/28/23 09:36 (Glucocorticoids) SNESS Home Meds Home Medications Medication Instructions Recorded Confirmed biotin 10 mg tablet 10 mg PO DAILY 01/18/24 01/18/24 aivceo-pyqimaun-[id number] 2 cap PO AC 01/18/24 01/18/24 36,000-114,000-180,000 unit capsule,delay rel (Creon) omeprazole 20 mg capsule,delayed 40 mg PO DAILY 01/18/24 01/18/24 release Results & Data (ED) Vital Signs Vital Signs - 24 hr 01/17/24 18:34 01/17/24 20:33 01/17/24 20:34 Temperature 36.5 C 36.7 C Temperature Source Oral Oral Pulse Rate 105 H 93 H Pulse Rate [Apical] 86 Pulse Rhythm Pulse Rhythm [Apical] Regular Pulse Strength [Apical] Normal Respiratory Rate 20 22 Respiratory Effort / Characteristics Non-Labored Spontaneous Non-Labored Spontaneous Respiratory Depth Normal Normal Respiratory Pattern Regular Regular Blood Pressure 207/102 H Blood Pressure [Right Arm] 162/101 H Blood Pressure Mean 137 Blood Pressure Mean [Right Arm] 121 Blood Pressure Position Sitting Blood Pressure Position [Right Arm] Lying Pulse Oximetry 98 100 Oxygen Delivery Method Room Air Room Air Sepsis Recent Fever Within 48 Hours No Sepsis New/Unexplained Change in Mental Status No Sepsis Action Taken by Nursing No Action Required 01/17/24 20:34 01/17/24 22:30 01/18/24 00:00 Temperature Temperature Source Pulse Rate 90 82 Pulse Rate [Apical] 82 Pulse Rhythm Regular Pulse Rhythm [Apical] Regular Pulse Strength [Apical] Normal Respiratory Rate 22 24 18 Respiratory Effort / Characteristics Non-Labored Spontaneous Respiratory Depth Normal Respiratory Pattern Blood Pressure 155/85 H Blood Pressure [Right Arm] 188/106 H Blood Pressure Mean 118 Blood Pressure Mean [Right Arm] 133 Blood Pressure Position Blood Pressure Position [Right Arm] Pulse Oximetry 100 100 96 Oxygen Delivery Method Room Air Room Air Sepsis Recent Fever Within 48 Hours Sepsis New/Unexplained Change in Mental Status Sepsis Action Taken by Nursing 01/18/24 00:25 01/18/24 01:12 01/18/24 02:52 Temperature Temperature Source Pulse Rate 78 74 76 Pulse Rate [Apical] Pulse Rhythm Pulse Rhythm [Apical] Pulse Strength [Apical] Respiratory Rate 16 16 Respiratory Effort / Characteristics Respiratory Depth Respiratory Pattern Blood Pressure 147/101 H 151/95 H Blood Pressure [Right Arm] Blood Pressure Mean 116 113 Blood Pressure Mean [Right Arm] Blood Pressure Position Blood Pressure Position [Right Arm] Pulse Oximetry 97 96 Oxygen Delivery Method Sepsis Recent Fever Within 48 Hours Sepsis New/Unexplained Change in Mental Status Sepsis Action Taken by Nursing Laboratory Data Attestation: I reviewed the patient's lab results. 01/17/24 18:56 01/17/24 18:56 Lab Results 01/17/24 01/17/24 01/17/24 Range/Units 18:56 22:31 23:45 WBC 9.22 (4.8-10.8) K/ul RBC 4.54 (4.20-5.40) M/uL Hgb 13.6 (12.0-16.0) g/dl Hct 40.6 (37.0-47.0) % MCV 89.4 (80.0-100.0) fL MCH 30.0 (25.0-34.0) pg MCHC 33.5 (32.0-36.0) g/dL RDW Std Deviation 43.8 (36.4-46.3) fL RDW Coeff of Andrea 13.4 (11.5-14.5) % Plt Count 519 H (130-400) K/uL MPV 9.3 L (9.4-12.4) fL Immature Gran % (Auto) 0.2 % Neut % (Auto) 87.8 % Lymph % (Auto) 7.7 % Rooks % (Auto) 3.7 % Eos % (Auto) 0.1 % Baso % (Auto) 0.5 % Neut # (Auto) 8.09 H (1.40-6.50) K/uL Lymph # (Auto) 0.71 L (1.20-3.40) K/uL Rooks # (Auto) 0.34 (0.11-0.59) K/uL Eos # (Auto) 0.01 (0.00-0.50) K/uL Baso # (Auto) 0.05 (0.00-0.20) K/uL Immature Gran # (Auto) 0.02 (0.01-0.20) K/uL PT 10.3 (9.0-12.0) Seconds INR 0.9 (0.9-1.1) APTT 25 (21-31) Seconds PTT Ratio 0.9 Sodium 135 L (136-145) mmol/L Potassium 4.2 (3.5-5.1) mmol/L Chloride 104 (98-107) mmol/L Carbon Dioxide 23 (21-32) mmol/L Anion Gap 8 (3-11) BUN 13 (6-23) mg/dl Creatinine 0.56 L (0.6-1.2) mg/dl Est Cr Clr Drug Dosing 83.3 ml/min eGFR 96.31 BUN/Creatinine Ratio 23.2 H (10-20) Glucose 153 H (70-99(Fasting)) mg/dl Calcium 9.3 (8.6-10.3) mg/dl Magnesium 2.0 (1.7-2.4) mg/dl Total Bilirubin 0.5 (0.2-1.0) mg/dl AST 29 (13-39) U/L ALT 25 (7-52) U/L Alkaline Phosphatase 124 H (34-104) U/L Troponin I High Sens 3.2 (0-14) pg/ml Total Protein 7.4 (6.0-8.3) gm/dl Albumin 4.2 (3.4-5.0) gm/dl Globulin 3.2 (2.5-4.0) gm/dl Albumin/Globulin Ratio 1.3 (0.9-2) Lipase 6 L (11-82) U/L Urine Color Yellow Urine Appearance Clear (Clear) Urine pH 7.0 (4.5-7.5) Ur Specific [place] 1.015 (1.000-1.030) Urine Protein Negative (Negative) Urine Glucose (UA) Negative (Negative) Urine Ketones Negative (Negative) Urine Blood Trace-intact H (Negative) Urine Nitrite Negative (Negative) Urine Bilirubin Negative (Negative) Urine Urobilinogen Negative (Negative) Ur Leukocyte Esterase Trace H (Negative) Urine RBC 0-2 (0-2) /hpf Urine WBC 0-5 (0-5) /hpf Ur Epithelial Cells 0-2 (0-2) /hpf Calcium Oxalate Crystal Present A (None Prsent) Urine Bacteria None Seen (None Seen) Adenovirus (PCR) Not Detected (NotDetected) B. pertussis DNA (PCR) Not Detected (NotDetected) B.parapertussis DNA PCR Not Detected (NotDetected) C. pneumoniae DNA (PCR) Not Detected (NotDetected) Coronavirus OC43 (PCR) Not Detected (NotDetected) Coronavirus HKU1 (PCR) Not Detected (NotDetected) Coronavirus 229E (PCR) Not Detected (NotDetected) SARS-CoV-2 (PCR) Not Detected (NotDetected) Coronavirus NL63 (PCR) Not Detected (NotDetected) Human Metapneumovir PCR Not Detected (NotDetected) Influenza Type A (PCR) Not Detected (NotDetected) Influenza Type B (PCR) Not Detected (NotDetected) M. pneumoniae (PCR) Not Detected (NotDetected) Parainfluenza 1 (PCR) Not Detected (NotDetected) Parainfluenza 2 (PCR) Not Detected (NotDetected) Parainfluenza 3 (PCR) Not Detected (NotDetected) Parainfluenza 4 (PCR) Not Detected (NotDetected) RSV (PCR) Not Detected (NotDetected) Entero/Rhino (PCR) Not Detected (NotDetected) Administered Medications Dextrose/Sodium Chloride (D5w And 1/2nss) 1,000 mls @ 125 mls/hr IV .Q8H BRETT Stop: 01/19/24 04:29 Last Admin: 01/18/24 04:42 Dose: 125 mls/hr Documented By: PURNIMA Discontinued Medications Sodium Chloride (Nss) 1,000 mls @ 999 mls/hr IV .Q1H1M ONE Stop: 01/17/24 22:56 Last Infusion: 01/17/24 23:40 Dose: Infused Documented By: Admin: 01/17/24 22:21 Dose: 999 mls/hr Documented By: ABY Acetaminophen (Ofirmev) 1,000 mg in 100 mls @ 400 mls/hr IV NOW STA Stop: 01/17/24 22:10 Last Infusion: 01/17/24 23:19 Dose: Infused Documented By: Admin: 01/17/24 22:21 Dose: 400 mls/hr Documented By: ABY Famotidine (Pepcid 20mg Iv Push) 20 mg in 5 mls @ 2.5 mls/min IV NOW STA Stop: 01/17/24 21:57 Last Admin: 01/17/24 22:21 Dose: 2.5 mls/min Documented By: ABY Promethazine HCl (Phenergan) 12.5 mg in 50.5 mls @ 202 mls/hr IV NOW STA Stop: 01/18/24 00:21 Last Infusion: 01/18/24 00:29 Dose: Infused Documented By: Admin: 01/18/24 00:13 Dose: 202 mls/hr Documented By: NEO Sodium Chloride (Nss) 500 mls @ 999 mls/hr IV .Q31M ONE Stop: 01/18/24 00:37 Last Infusion: 01/18/24 00:46 Dose: Infused Documented By: Admin: 01/18/24 00:14 Dose: 999 mls/hr Documented By: NEO Ioversol (Optiray 320 100ml) 92 ml IV ONCE ONE Stop: 01/17/24 22:55 Last Admin: 01/17/24 22:56 Dose: 92 ml Documented By: SB Ondansetron HCl (Ondansetron Inj 2 Mg/Ml 2 Ml Vial) 4 mg IV NOW STA Stop: 01/17/24 21:57 Last Admin: 01/17/24 22:21 Dose: 4 mg Documented By: ABY Imaging Data Radiologist's Impression: Chest X-Ray 01/17/24 18:37 Exam(s): XR CXR 1 VIEW EXAM: XR Chest, 1 View CLINICAL HISTORY: Reason for exam: Chest pain, nonspecific. TECHNIQUE: Frontal view of the chest. COMPARISON: No relevant prior studies available. FINDINGS: Lungs: Unremarkable. No acute infiltration, atelectasis or mass. Pleural space: Unremarkable. No pneumothorax or pleural fluid. Heart: Unremarkable. No cardiomegaly. Mediastinum: Unremarkable. Normal mediastinal contour. Bones/joints: No acute findings. IMPRESSION: No acute findings in the chest. Electronically signed by: Sam Bruno MD 01/17/24 23:27 PM Abdomen/Pelvis CT 01/17/24 21:56 Exam(s): CT ABDOMEN + PELVIS With Contrast IV Amt: 92ml optiray 320 EXAM: CT Abdomen and Pelvis With Intravenous Contrast CLINICAL HISTORY: Reason for exam: abd pain, n/v/d.. TECHNIQUE: Axial computed tomography images of the abdomen and pelvis with intravenous contrast. CTDI is 36 mGy and DLP is 1182 mGy-cm. Automated exposure control was utilized for the study. A dose lowering technique was utilized adhering to the principles of ALARA. CONTRAST: Patient received 92ml optiray 320 of IV contrast COMPARISON: CT December 11, 2019. FINDINGS: ABDOMEN: Liver: Unremarkable. No mass. Gallbladder and bile ducts: Cholecystectomy. Pneumobilia in the left lobe of the liver. No ductal dilation. Pancreas: There appears to be a Whipple procedure. No ductal dilation. Spleen: Unremarkable. No splenomegaly. Adrenals: Unremarkable. No mass. Kidneys and ureters: Unremarkable. No solid mass. No hydronephrosis. Stomach and bowel: Unremarkable. No obstruction. No mucosal thickening. PELVIS: Appendix: No findings to suggest acute appendicitis. Bladder: Unremarkable. No mass. ABDOMEN and PELVIS: Intraperitoneal space: Unremarkable. No free air. No significant fluid collection. Bones/joints: No acute findings. Soft tissues: Unremarkable. Vasculature: Unremarkable. No abdominal aortic aneurysm. Lymph nodes: Unremarkable. No enlarged lymph nodes. IMPRESSION: No acute findings in the abdomen or pelvis. Electronically signed by: Sam Bruno MD 01/18/24 01:[address] 01/17/24 21:56 Exam(s): CT HEAD Without Contrast EXAM: CT Head Without Intravenous Contrast CLINICAL HISTORY: Reason for exam: anaya, n/v. TECHNIQUE: Axial computed tomography images of the head/brain without intravenous contrast. CTDI is 36 mGy and DLP is 1182 mGy-cm. Automated exposure control was utilized for the study. A dose lowering technique was utilized adhering to the principles of ALARA. COMPARISON: No relevant prior studies available. FINDINGS: Brain: Chronic, small vessel ischemic changes in the white matter. No acute intracranial edema, hemorrhage or abnormal mass-effect. Ventricles: Unremarkable. No ventriculomegaly. Bones/joints: Unremarkable. No acute fracture. Soft tissues: Unremarkable. Sinuses: Unremarkable as visualized. No acute sinusitis. Mastoid air cells: Unremarkable as visualized. No mastoid effusion. IMPRESSION: No acute findings in the head/brain. Electronically signed by: Sam Bruno MD 01/17/24 23:41 PM Discharge Plan Visit Data Chief Complaint: Vomiting Stated Complaint: VOMITING,DIARRHEA,HEADACHE,ABD PAIN ED Provider: Gerhard Alexandre Discharge Problem: Headache, Nausea & vomiting, Generalized weakness, History of neuroendocrine cancer Patient Disposition: Admitted As Inpatient Discharge Instructions Interventions: ED Discharge Assessment Last Done: 01/18/24 04:07 Discharge Problem: Headache Qualifiers: Headache type: unspecified Headache chronicity pattern: acute headache I ntractability: intractable Qualified Code(s): R51.9 - Headache, unspecified Nausea & vomiting Qualifiers: Vomiting type: unspecified Qualified Code(s): R11.2 - Nausea with vomiting, unspecified
[2024-01-18 00:13] LABS: Epithelial Cell Urine 0-2 /hpf (0-2); RBC Urine 0-2 /hpf (0-2); WBC Urine 0-5 /hpf (0-5)
[2024-01-18] MEDS: PROMETHAZINE 12.5 MG/50.5 ML BAG IV STA (00:13)
[2024-01-18 00:14] LABS: Bacteria Urine None Seen (None Seen); Calcium Oxalate Crystals Urine Present (None Prsent)
[2024-01-18] MEDS: SODIUM CHLORIDE 0.9% 500 ML IV ONE (00:14)
--- NOTE | 2024-01-18 00:17 | CT Scan Report ---
Exam(s): CT HEAD Without Contrast EXAM: CT Head Without Intravenous Contrast CLINICAL HISTORY: Reason for exam: anaya, n/v. TECHNIQUE: Axial computed tomography images of the head/brain without intravenous contrast. CTDI is 36 mGy and DLP is 1182 mGy-cm. Automated exposure control was utilized for the study. A dose lowering technique was utilized adhering to the principles of ALARA. COMPARISON: No relevant prior studies available. FINDINGS: Brain: Chronic, small vessel ischemic changes in the white matter. No acute intracranial edema, hemorrhage or abnormal mass-effect. Ventricles: Unremarkable. No ventriculomegaly. Bones/joints: Unremarkable. No acute fracture. Soft tissues: Unremarkable. Sinuses: Unremarkable as visualized. No acute sinusitis. Mastoid air cells: Unremarkable as visualized. No mastoid effusion. IMPRESSION: No acute findings in the head/brain. Electronically signed by: Sam Bruno MD 01/17/24 23:41 PM
--- NOTE | 2024-01-18 02:10 | CT Scan Report ---
Exam(s): CT ABDOMEN + PELVIS With Contrast IV Amt: 92ml optiray 320 EXAM: CT Abdomen and Pelvis With Intravenous Contrast CLINICAL HISTORY: Reason for exam: abd pain, n/v/d.. TECHNIQUE: Axial computed tomography images of the abdomen and pelvis with intravenous contrast. CTDI is 36 mGy and DLP is 1182 mGy-cm. Automated exposure control was utilized for the study. A dose lowering technique was utilized adhering to the principles of ALARA. CONTRAST: Patient received 92ml optiray 320 of IV contrast COMPARISON: CT December 11, 2019. FINDINGS: ABDOMEN: Liver: Unremarkable. No mass. Gallbladder and bile ducts: Cholecystectomy. Pneumobilia in the left lobe of the liver. No ductal dilation. Pancreas: There appears to be a Whipple procedure. No ductal dilation. Spleen: Unremarkable. No splenomegaly. Adrenals: Unremarkable. No mass. Kidneys and ureters: Unremarkable. No solid mass. No hydronephrosis. Stomach and bowel: Unremarkable. No obstruction. No mucosal thickening. PELVIS: Appendix: No findings to suggest acute appendicitis. Bladder: Unremarkable. No mass. ABDOMEN and PELVIS: Intraperitoneal space: Unremarkable. No free air. No significant fluid collection. Bones/joints: No acute findings. Soft tissues: Unremarkable. Vasculature: Unremarkable. No abdominal aortic aneurysm. Lymph nodes: Unremarkable. No enlarged lymph nodes. IMPRESSION: No acute findings in the abdomen or pelvis. Electronically signed by: Sam Bruno MD 01/18/24 01:02 AM
--- NOTE | 2024-01-18 03:07 | History & Physical Report ---
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 Patient states since morning she having a lot of headaches and she developed nausea with several episodes of vomiting and several episodes of diarrhea associated with some abdominal discomfort. No blood in the stools. No blood in the emesis. Currently with the pain medication the pain is better. Denies any fevers. No cough. No chest pain or shortness of. Vision is okay. No runny nose or sore throat. Currently hemodynamics are okay. Nausea and vomiting and diarrhea Possible gastroenteritis CT abdomen pelvis no acute findings Will check stool studies N.p.o. for now IV fluids IV antiemetics as needed IV Tylenol as needed Close monitor If not improving will consult GI Headache CT head is okay Currently improving Will monitor GERD On omeprazole IV Pepcid Neuroendocrine tumor in pancreas Status post Whipple's procedure in 02/2020 New mets to the liver's Currently on chemo every 4 weeks ,last chemo on 12/28/2023 Follows with heme-onc History of hypoglycemic episodes We will monitor DVT prophylaxis Lovenox Disposition Medical floor Full code. History of Present Illness Chief Complaint: Nausea ,vomiting and diarrhea and headache Primary Care Provider: Gisell Sinha MD 73-year-old female with past medical history significant for episodes of hypoglycemia, prediabetes, hyperlipidemia, slow transit constipation, GERD, migraine, malignant neoplasm of skin parts of face, dermatitis, migraines, depression, history of neuroendocrine tumor in pancreas status post Whipple's procedure in 02/2020, and new liver lesion seen on MRI, currently on chemo every 4 weeks, last chemo was on December 27 as per patient presents with headache and nausea and vomiting and diarrhea starting today. Patient states since morning she having a lot of headaches and she developed nausea with several episodes of vomiting and several episodes of diarrhea associated with some abdominal discomfort. No blood in the stools. No blood in the emesis. Currently with the pain medication the pain is better. Denies any fevers. No cough. No chest pain or shortness of. Vision is okay. No runny nose or sore throat. Currently hemodynamics are okay. Past medical history. As mentioned above Past surgical history. Colonoscopy. EGD. EGD with endoscopic ultrasound. Hysteroscopy with biopsy and polypectomy. Ligation of oviducts. Appendectomy. Distant EXTR kidney. Partial gastrectomy with gastrojejunostomy. Repair of shoulder cuff. Social history. . No smoking. Alcohol rarely. No drug use. Family history. Daughter had breast cancer. Paternal aunt had colon cancer. Brother had skin cancer. Mother had lung cancer. Sister had diabetes. Father had heart disorder. Brother had stroke. Allergies Allergy/AdvReac Type Severity Reaction Status Date / Time Corticosteroids Allergy Intermediate RASH/NERVOU Verified 12/28/23 09:36 (Glucocorticoids) SNESS Home Medications Medication Instructions Recorded Confirmed Type biotin 10 mg tablet 10 mg PO DAILY 01/18/24 01/18/24 History cuahie-cyvwbgxb-wosubkm 2 cap PO AC 01/18/24 01/18/24 History 36,000-114,000-180,000 unit capsule,delay rel (Creon) omeprazole 20 mg capsule,delayed 40 mg PO DAILY 01/18/24 01/18/24 History release Past Med/Surg History Problem List (Updated 01/18/24 @ 06:55 by Gerhard Alexandre MD) History of neuroendocrine cancer (Acute) Generalized weakness (Acute) Nausea & vomiting (Acute) Headache (Acute) Nausea and vomiting Encounter for pre-operative examination Medical History AAA (abdominal aortic aneurysm) History of postoperative nausea and vomiting Diverticular disease denies h/o diverticulitis GERD (gastroesophageal reflux disease) controlled, stable per pt History of COVID-19 (~2019) denies hospitalization-symptoms resolved Osteoarthritis Hx SBO just blockage, no cancer History of pancreatic cancer (~2020) s/p surgery Liver cancer dx Oct 2023 > gets chemo shot once monthly in hip (states mild nausea and occasional diarrhea are side effects so far) > Eleonora Laureano with [facility] > states was referred to transplant clinic-[facility] Migraine Surgical History History of Whipple procedure History of cataract surgery bilat History of esophagogastroduodenoscopy (EGD) History of kidney surgery 1974 > because "kidney dropped, they tacked back in place" History of colonoscopy History of repair of rotator cuff right Hx of resection of small bowel just blockage, no cancer Hx of resection of pancreas 2020 S/P tonsillectomy and adenoidectomy Hx of appendectomy Hx of cholecystectomy Family History Sister Diabetes Brother Diabetes Brother Diabetes Sister Diabetes Social History Smoking Status: Never smoker Second Hand Exposure: No; Do You Dip or Chew Tobacco: No; Hx Alcohol Use: Yes Alcohol type: beer Hx Substance Use: No Preferred Language: Thai Communication Ability: Effective Moss Picker Required: No Beliefs That Will Affect Care: None marital status: Current Living Situation: Spouse Other Information That Helps Us Care for You: No Feels Safe at Home: Yes Safety Concerns: Feels Safe At This Time Assistive Devices: None Review of Systems Review of Systems: All systems reviewed & are unremarkable except as noted in HPI & below Physical Exam Physical Exam: General- Not ion distress. Head- atraumatic Eyes- PERRL. ENT- oropharynx clear Neck- supple, no JVD. Lungs- clear to auscultation no wheezing or crackles Heart- regular rate and rhythm; no murmur, no gallop. Abdomen- normal bowel sounds, soft, mild diffuse discomfort, no distension seen. Extremities. No edema, no erythema seen. Neuro- alert, oriented PERRL, no facial palsy; no dysarthria; moves extremities Results & Data Results & Data Vital Signs (Past 12 Hours) Vital Signs Temp Pulse Pulse Resp BP BP Pulse Ox 01/18/24 02:52 76 16 151/95 H 96 01/18/24 01:12 74 16 147/101 H 97 01/18/24 00:25 78 01/18/24 00:00 82 18 155/85 H 96 01/17/24 22:30 82 24 188/106 H 100 01/17/24 20:34 90 22 100 01/17/24 20:34 36.7 C 86 22 162/101 H 100 01/17/24 20:33 93 H 01/17/24 18:34 36.5 C 105 H 20 207/102 H 98 O2 Del Method 01/18/24 02:52 01/18/24 01:12 01/18/24 00:25 01/18/24 00:00 01/17/24 22:30 Room Air 01/17/24 20:34 Room Air 01/17/24 20:34 Room Air 01/17/24 20:33 01/17/24 18:34 Room Air Diagnostic Findings Laboratory Results WBC 9.22 K/ul (4.8-10.8) 01/17/24 18:56 RBC 4.54 M/uL (4.20-5.40) 01/17/24 18:56 Hgb 13.6 g/dl (12.0-16.0) 01/17/24 18:56 Hct 40.6 % (37.0-47.0) 01/17/24 18:56 MCV 89.4 fL (80.0-100.0) 01/17/24 18:56 MCH 30.0 pg (25.0-34.0) 01/17/24 18:56 MCHC 33.5 g/dL (32.0-36.0) 01/17/24 18:56 RDW Std Deviation 43.8 fL (36.4-46.3) 01/17/24 18:56 RDW Coeff of Andrea 13.4 % (11.5-14.5) 01/17/24 18:56 Plt Count 519 K/uL (130-400) H 01/17/24 18:56 MPV 9.3 fL (9.4-12.4) L 01/17/24 18:56 Immature Gran % (Auto) 0.2 % 01/17/24 18:56 Neut % (Auto) 87.8 % 01/17/24 18:56 Lymph % (Auto) 7.7 % 01/17/24 18:56 [place] % (Auto) 3.7 % 01/17/24 18:56 Eos % (Auto) 0.1 % 01/17/24 18:56 Baso % (Auto) 0.5 % 01/17/24 18:56 Neut # (Auto) 8.09 K/uL (1.40-6.50) H 01/17/24 18:56 Lymph # (Auto) 0.71 K/uL (1.20-3.40) L 01/17/24 18:56 [place] # (Auto) 0.34 K/uL (0.11-0.59) 01/17/24 18:56 Eos # (Auto) 0.01 K/uL (0.00-0.50) 01/17/24 18:56 Baso # (Auto) 0.05 K/uL (0.00-0.20) 01/17/24 18:56 Immature Gran # (Auto) 0.02 K/uL (0.01-0.20) 01/17/24 18:56 PT 10.3 Seconds (9.0-12.0) 01/17/24 18:56 INR 0.9 (0.9-1.1) 01/17/24 18:56 APTT 25 Seconds (21-31) 01/17/24 18:56 PTT Ratio 0.9 01/17/24 18:56 Sodium 135 mmol/L (136-145) L 01/17/24 18:56 Potassium 4.2 mmol/L (3.5-5.1) 01/17/24 18:56 Chloride 104 mmol/L (98-107) 01/17/24 18:56 Carbon Dioxide 23 mmol/L (21-32) 01/17/24 18:56 Anion Gap 8 (3-11) 01/17/24 18:56 BUN 13 mg/dl (6-23) 01/17/24 18:56 Creatinine 0.56 mg/dl (0.6-1.2) L 01/17/24 18:56 Est Cr Clr Drug Dosing 83.3 ml/min 01/17/24 18:56 eGFR 96.31 01/17/24 18:56 BUN/Creatinine Ratio 23.2 (10-20) H 01/17/24 18:56 Glucose 153 mg/dl (70-99(Fasting)) H 01/17/24 18:56 Calcium 9.3 mg/dl (8.6-10.3) 01/17/24 18:56 Magnesium 2.0 mg/dl (1.7-2.4) 01/17/24 18:56 Total Bilirubin 0.5 mg/dl (0.2-1.0) 01/17/24 18:56 AST 29 U/L (13-39) 01/17/24 18:56 ALT 25 U/L (7-52) 01/17/24 18:56 Alkaline Phosphatase 124 U/L (34-104) H 01/17/24 18:56 Troponin I High Sens 3.2 pg/ml (0-14) 01/17/24 18:56 Total Protein 7.4 gm/dl (6.0-8.3) 01/17/24 18:56 Albumin 4.2 gm/dl (3.4-5.0) 01/17/24 18:56 Globulin 3.2 gm/dl (2.5-4.0) 01/17/24 18:56 Albumin/Globulin Ratio 1.3 (0.9-2) 01/17/24 18:56 Lipase 6 U/L (11-82) L 01/17/24 18:56 Urine Color Yellow 01/17/24 23:45 Urine Appearance Clear (Clear) 01/17/24 23:45 Urine pH 7.0 (4.5-7.5) 01/17/24 23:45 Ur Specific [place] 1.015 (1.000-1.030) 01/17/24 23:45 Urine Protein Negative (Negative) 01/17/24 23:45 Urine Glucose (UA) Negative (Negative) 01/17/24 23:45 Urine Ketones Negative (Negative) 01/17/24 23:45 Urine Blood Trace-intact (Negative) H 01/17/24 23:45 Urine Nitrite Negative (Negative) 01/17/24 23:45 Urine Bilirubin Negative (Negative) 01/17/24 23:45 Urine Urobilinogen Negative (Negative) 01/17/24 23:45 Ur Leukocyte Esterase Trace (Negative) H 01/17/24 23:45 Urine RBC 0-2 /hpf (0-2) 01/17/24 23:45 Urine WBC 0-5 /hpf (0-5) 01/17/24 23:45 Ur Epithelial Cells 0-2 /hpf (0-2) 01/17/24 23:45 Calcium Oxalate Crystal Present (None Prsent) A 01/17/24 23:45 Urine Bacteria None Seen (None Seen) 01/17/24 23:45 Adenovirus (PCR) Not Detected (NotDetected) 01/17/24 22:31 B. pertussis DNA (PCR) Not Detected (NotDetected) 01/17/24 22:31 B.parapertussis DNA PCR Not Detected (NotDetected) 01/17/24 22:31 C. pneumoniae DNA (PCR) Not Detected (NotDetected) 01/17/24 22:31 Coronavirus OC43 (PCR) Not Detected (NotDetected) 01/17/24 22:31 Coronavirus HKU1 (PCR) Not Detected (NotDetected) 01/17/24 22:31 Coronavirus 229E (PCR) Not Detected (NotDetected) 01/17/24 22:31 SARS-CoV-2 (PCR) Not Detected (NotDetected) 01/17/24 22:31 Coronavirus NL63 (PCR) Not Detected (NotDetected) 01/17/24 22:31 Human Metapneumovir PCR Not Detected (NotDetected) 01/17/24 22:31 Influenza Type A (PCR) Not Detected (NotDetected) 01/17/24 22:31 Influenza Type B (PCR) Not Detected (NotDetected) 01/17/24 22:31 M. pneumoniae (PCR) Not Detected (NotDetected) 01/17/24 22:31 Parainfluenza 1 (PCR) Not Detected (NotDetected) 01/17/24 22:31 Parainfluenza 2 (PCR) Not Detected (NotDetected) 01/17/24 22:31 Parainfluenza 3 (PCR) Not Detected (NotDetected) 01/17/24 22:31 Parainfluenza 4 (PCR) Not Detected (NotDetected) 01/17/24 22:31 RSV (PCR) Not Detected (NotDetected) 01/17/24 22:31 Entero/Rhino (PCR) Not Detected (NotDetected) 01/17/24 22:31 Impressions Chest X-Ray 01/17/24 18:37 Exam(s): XR CXR 1 VIEW EXAM: XR Chest, 1 View CLINICAL HISTORY: Reason for exam: Chest pain, nonspecific. TECHNIQUE: Frontal view of the chest. COMPARISON: No relevant prior studies available. FINDINGS: Lungs: Unremarkable. No acute infiltration, atelectasis or mass. Pleural space: Unremarkable. No pneumothorax or pleural fluid. Heart: Unremarkable. No cardiomegaly. Mediastinum: Unremarkable. Normal mediastinal contour. Bones/joints: No acute findings. IMPRESSION: No acute findings in the chest. Electronically signed by: Sam Bruno MD 01/17/24 23:27 PM Abdomen/Pelvis CT 01/17/24 21:56 Exam(s): CT ABDOMEN + PELVIS With Contrast IV Amt: 92ml optiray 320 EXAM: CT Abdomen and Pelvis With Intravenous Contrast CLINICAL HISTORY: Reason for exam: abd pain, n/v/d.. TECHNIQUE: Axial computed tomography images of the abdomen and pelvis with intravenous contrast. CTDI is 36 mGy and DLP is 1182 mGy-cm. Automated exposure control was utilized for the study. A dose lowering technique was utilized adhering to the principles of ALARA. CONTRAST: Patient received 92ml optiray 320 of IV contrast COMPARISON: CT December 11, 2019. FINDINGS: ABDOMEN: Liver: Unremarkable. No mass. Gallbladder and bile ducts: Cholecystectomy. Pneumobilia in the left lobe of the liver. No ductal dilation. Pancreas: There appears to be a Whipple procedure. No ductal dilation. Spleen: Unremarkable. No splenomegaly. Adrenals: Unremarkable. No mass. Kidneys and ureters: Unremarkable. No solid mass. No hydronephrosis. Stomach and bowel: Unremarkable. No obstruction. No mucosal thickening. PELVIS: Appendix: No findings to suggest acute appendicitis. Bladder: Unremarkable. No mass. ABDOMEN and PELVIS: Intraperitoneal space: Unremarkable. No free air. No significant fluid collection. Bones/joints: No acute findings. Soft tissues: Unremarkable. Vasculature: Unremarkable. No abdominal aortic aneurysm. Lymph nodes: Unremarkable. No enlarged lymph nodes. IMPRESSION: No acute findings in the abdomen or pelvis. Electronically signed by: Sam Bruno MD 01/18/24 01:[address] 01/17/24 21:56 Exam(s): CT HEAD Without Contrast EXAM: CT Head Without Intravenous Contrast CLINICAL HISTORY: Reason for exam: anaya, n/v. TECHNIQUE: Axial computed tomography images of the head/brain without intravenous contrast. CTDI is 36 mGy and DLP is 1182 mGy-cm. Automated exposure control was utilized for the study. A dose lowering technique was utilized adhering to the principles of ALARA. COMPARISON: No relevant prior studies available. FINDINGS: Brain: Chronic, small vessel ischemic changes in the white matter. No acute intracranial edema, hemorrhage or abnormal mass-effect. Ventricles: Unremarkable. No ventriculomegaly. Bones/joints: Unremarkable. No acute fracture. Soft tissues: Unremarkable. Sinuses: Unremarkable as visualized. No acute sinusitis. Mastoid air cells: Unremarkable as visualized. No mastoid effusion. IMPRESSION: No acute findings in the head/brain. Electronically signed by: Sam Bruno MD 01/17/24 23:41 PM ECG Additional Comments: ECG. Normal sinus rhythm rate of 91. No acute ST changes seen. Code Status & VTE Plan VTE Prophylaxis Plan VTE Prophylaxis will be ordered: Yes
[2024-01-18] MEDS ORDERED: ACETAMINOPHEN 1,000 MG/100 ML VIAL IV PRN (04:18)
[2024-01-18] MEDS ORDERED: ONDANSETRON INJ 2 MG/ML 2 ML VIAL IV PRN (04:18)
[2024-01-18] MEDS: D5W AND 1/2NSS 1,000 ML IV SCH (04:42)
[2024-01-18 07:21] VITALS: BP 122/73; PULSE 73; RESP 18; TEMP 98.2; O2SAT 97
--- NOTE | 2024-01-18 08:27 | Electrocardiogram Report ---
Test Reason : Blood Pressure : */* mmHG Vent. Rate : 99 BPM Atrial Rate : 99 BPM P-R Int : 150 ms QRS Dur : 86 ms QT Int : 324 ms P-R-T Axes : 59 50 50 degrees QTcB Int : 415 ms Normal sinus rhythm Normal ECG When compared with ECG of 04-Jan-2024 11:00, No significant change Confirmed by Gabino Velasquez ([id number]) on 01/18/2024 8:27:13 AM Referred By: Confirmed By: Gabino Velasquez
[2024-01-18] MEDS: FAMOTIDINE 20MG IV PUSH 20 MG/5 ML SYR IV SCH (08:34)
[2024-01-18] MEDS: ENOXAPARIN INJ 40 MG/0.4 ML SYR SQ SCH (08:34)
[2024-01-18 09:50] LABS: Calcium 8.6 mg/dl (8.6-10.3); Magnesium 1.9 mg/dl (1.7-2.4); Potassium 4.1 mmol/L (3.5-5.1)
[2024-01-18 09:56] LABS: Creatinine Clr Calc Pharmacy 81.8 ml/min
--- NOTE | 2024-01-18 10:22 | Communication Note ---
Date of Service: January 18, 2024 Patient seen and examined at bedside. She is comfortable; not in distress. Does not require any antinausea medication Headache well-controlled. On physical examination; Constitutional: WD/WN, vitals as above, NAD, sitting up in bed, pleasant, conversing easily wheeze, rales, rhonchi. Normal insp/exp effort, no accessory muscle use Cardiovascular: RRR, no murmur, no edema Vessels: no JVD or carotid bruit Chest: normal inspection of chest Abdomen: normal bowel sounds, soft, nontender, no hepatosplenomegaly Musculoskeletal: no cyanosis or clubbing, extremities motor strength 5/5 Skin: no rashes, warm and dry normal turgor Neurologic: PERRL, EOMI, accommodation nl, no face palsy, no dysarthria CN's II- XI intact bilaterally and moves all extremities Psychiatric: A+Ox3, euthymic affect Assessment/plan Acute gastroenteritis Patient presents with nausea, vomiting and diarrhea Currently on chemo every 4 weeks; last chemo therapy on December 27 CT abdomen and pelvis does not show any acute finding Will advance diet as tolerated. Await C. difficile and stool PCR Continue IV fluids for now Continue antiemetics Please note the above document was generated using voice recognition software. It may contain grammatical, syntax or spelling errors. Any formal questions or concerns about the content, text or information contained within the body of this dictation should be directly addressed to the provider for clarification
[2024-01-18 10:43] LABS: Basophils # (auto) 0.07 K/uL (0.00-0.20); Eosinophils # (auto) 0.11 K/uL (0.00-0.50); Eosinophils % (auto) 1.6 %; Hematocrit (blood only) 34.5 % (37.0-47.0); Hemoglobin 11.3 g/dl (12.0-16.0); Immature Granulocytes # (auto) 0.02 K/uL (0.01-0.20); Immature Granulocytes % (auto) 0.3 %; Lymphocytes # (auto) 0.94 K/uL (1.20-3.40); Lymphocytes % (auto) 13.6 %; Mean Corpuscular Hemoglobin 29.9 pg (25.0-34.0); Mean Corpuscular Hgb Conc 32.8 g/dL (32.0-36.0); Mean Corpuscular Volume 91.3 fL (80.0-100.0); Mean Platelet Volume 9.6 fL (9.4-12.4); Monocytes # (auto) 0.52 K/uL (0.11-0.59); Monocytes % (auto) 7.5 %; Neutrophils # (auto) 5.24 K/uL (1.40-6.50); Platelet Count 428 K/uL (130-400); RDW Coefficient of Variation 13.3 % (11.5-14.5); RDW Standard Deviation 44.6 fL (36.4-46.3); Red Blood Count 3.78 M/uL (4.20-5.40)
--- NOTE | 2024-01-18 15:20 | Discharge Summary ---
Date of Service January 18, 2024 Admission HPI Per Admitting Provider 73-year-old female with past medical history significant for episodes of hypoglycemia, prediabetes, hyperlipidemia, slow transit constipation, GERD, migraine, malignant neoplasm of skin parts of face, dermatitis, migraines, depression, history of neuroendocrine tumor in pancreas status post Whipple's procedure in 02/2020, and new liver lesion seen on MRI, currently on chemo every 4 weeks, last chemo was on December 27 as per patient presents with headache and nausea and vomiting and diarrhea starting today. Patient states since morning she having a lot of headaches and she developed nausea with several epis odes of vomiting and several episodes of diarrhea associated with some abdominal discomfort. No blood in the stools. No blood in the emesis. Currently with the pain medication the pain is better. Denies any fevers. No cough. No chest pain or shortness of. Vision is okay. No runny nose or sore throat. Currently hemodynamics are okay. Past medical history. As mentioned above Past surgical history. Colonoscopy. EGD. EGD with endoscopic ultrasound. Hysteroscopy with biopsy and polypectomy. Ligation of oviducts. Appendectomy. Distant EXTR kidney. Partial gastrectomy with gastrojejunostomy. Repair of shoulder cuff. Social history. . No smoking. Alcohol rarely. No drug use. Family history. Daughter had breast cancer. Paternal aunt had colon cancer. Brother had skin cancer. Mother had lung cancer. Sister had diabetes. Father had heart disorder. Brother had stroke. Principal Diagnosis Acute gastroenteritis Discharge Exam General- Not ion distress. Head- atraumatic Eyes- PERRL. ENT- oropharynx clear Neck- supple, no JVD. Lungs- clear to auscultation no wheezing or crackles Heart- regular rate and rhythm; no murmur, no gallop. Abdomen- normal bowel sounds, soft, mild diffuse discomfort, no distension seen. Extremities. No edema, no erythema seen. Neuro- alert, oriented PERRL, no facial palsy; no dysarthria; moves extremities Discharge Data Allergies Allergy/AdvReac Type Severity Reaction Status Date / Time Corticosteroids Allergy Intermediate RASH/NERVOU Verified 12/28/23 09:36 (Glucocorticoids) SNESS Ordered Studies 01/17/24 21:56 CT abd pelvis IV con only Stat CT head/brain wo con Stat Hospital Course (1) Nausea and vomitin-year-old female with past medical history significant for episodes of hypoglycemia, prediabetes, hyperlipidemia, slow transit constipation, GERD, migraine, malignant neoplasm of skin parts of face, dermatitis, migraines, depression, history of neuroendocrine tumor in pancreas status post Whipple's procedure in 02/2020, and new liver lesion seen on MRI, currently on chemo every 4 weeks, last chemo was on December 27 as per patient presents with headache and nausea and vomiting and diarrhea for a day. Acute gastroenteritis Patient presents with nausea, vomiting and diarrhea Currently on chemo every 4 weeks; last chemo therapy on December 27 CT abdomen and pelvis does not show any acute finding Patient is observed overnight; the nausea, vomiting and diarrhea resolved. Patient was able to tolerate full liquid diet. Patient was discharged home on antidiarrheal and antiemetics. Please note the above document was generated using voice recognition software. It may contain grammatical, syntax or spelling errors. Any formal questions or concerns about the content, text or information contained within the body of this dictation should be directly addressed to the provider for clarification Total Time Total Time Spent Total Time Spent (In Minutes): 45 Total Time Includes: Examination of the Patient, Discharge Planning, Medication Reconciliation, Communication With Other Providers and Other Discharge Plan Discharge Items Patient Disposition: Home - Self-Care Reason For Visit: N/V, DIARRHEA, HEADACHE Discharge Diagnosis: Acute gastroenteritis Activity: Resume your previous activity Non-emergency contact: Primary Care Provider Call non-emergency contact if: you have any medication questions and your symptoms worsen Follow-up/Referrals: Gisell Sinha MD [Primary Care Provider] - Diet: Regular Addtl Attending Provider Instructions: You were admitted to the hospital due to nausea, vomiting and diarrhea. CT scan was done which did not show any acute finding. You are prescribed following medication; Anti-vomiting medication (Zofran) 4 mg to be taken as needed for nausea/vomiting Antidiarrheal medication(loperamide) 2 mg as needed. Please limit the amount of antidiarrheal medication. If you have fever, bloody diarrhea, mucousy diarrhea; please seek medical attention immediately. Pending Studies at Discharge: No Stand-Alone Forms: My [employer], Smoking Cessation Medications and DC Order Prescriptions: New ondansetron 4 mg tablet,disintegrating 4 mg PO Q8H PRN (Reason: nausea and vomiting) 7 Days Qty: 20 0RF loperamide 2 mg capsule 2 mg PO Q6H PRN (Reason: loose stool) Qty: 20 0RF Continued biotin 10 mg Tablet 10 mg PO DAILY omeprazole 20 mg capsule,delayed release(DR/EC) 40 mg PO DAILY Creon 36,000-114,000- 180,000 unit capsule,delayed release(DR/EC) 2 cap PO AC Discharge Orders: Discharge Order (Routine); Ordered 01/18/24 Ordered By: Primitivo Garay/Other Patient Handouts: Self-Care for Vomiting and Diarrhea Admission Data Admit Date/Time: 01/18/24 02:58 Attending Provider: Primitivo House Admit Provider: Gabino Van Primary Care Provider: Gisell Sinha Other Interventions: Discharge Summary Assessment (RN) Last Done: 01/18/24 13:50
--- OUTSIDE RECORDS SUMMARY | 2024-01-18 19:23 | External Medical Summary | Summary of Care ---
Author Name Unknown Organization [facility] Address [address] [place] [address] Phone [phone] Care Team Providers Care Grinding Mill Operator Name Role Phone Gisell Alfonso MD Primary Care Prov ider Reason for Visit * Reason Onset Date Comments Imaging Records Request 01/13/2024 Encounter Details Date Type Department Care Team (Late st Contact Info) Description 01/13/2024 Telephone Radiology Film File [address] [place] [address] Support, Imaging Radiology [address] [place] [address] Imaging Records Request Allergies Active Allergy Reactions Criticality Noted Date Comments Corticosteroids Hives High 04/28/2000 Other reaction(s): ItchyNervous documented as of this encounter (statuses as of 01/13/2024) Medications Biotin 10 MG TABS 5000 mcg daily 08/31/19 20 Active Acetaminophen 500 MG Oral Tablet (Tylenol) 2 caps every 8 hours for 3 days, then 1 cap every 4 hours as needed for pain. Do not exceed 3000mg acetaminophen (Tylenol) every 24 hours. 30 Tab 02/22/19 21 Active Polyethylene Glycol 3350 17 GM Oral Packet (Miralax)Indicat ions:Slow transit constipation Take 1 Packet by mouth daily. For constipation 90 Each 1 04/11/19 21 Active Ibuprofen 600 MG Oral Tablet (Motrin) Take 1 Tab by mouth every 6 hours as needed (pain). With food. 30 Tab 07/12/19 21 Active Triamcinolone Acetonide 0.1 % External Cream (Aristocort)Nidia cations:Itching Apply topically to affected area 2 times a day. To affected areas for up to 2 weeks 80 g 1 03/23/19 23 Active Additional Information Patient not taking.Reported on 01/11/2024 Nystatin 714754 UNIT/GM External Powder (Nystop) TWICE A DAY 11/17/19 22 Active diphenhydrAMINE HCl 25 MG Oral Capsule (Benadryl) Take 1 Capsule by mouth at bedtime as needed for Itching. Active metroNIDAZOLE 0.75 % External Gel (Metrogel)Indica tions:Folliculit is Apply topically to affected area 2 times a day. Apply to affected area 45 g 3 03/27/19 23 Active Additional Information Patient not taking.Reported on 01/11/2024 Penciclovir 1 % External Cream (Denavir) Apply topically to affected area every 2 hours while awake. apply to cold sores for 4 days. 5 g 5 11/18/19 23 Active Additional Information Patient not taking.Reported on 11/10/2023 Creon [id number] UNIT Oral Capsule Delayed Release Particles (Pancrelipase (Fxu-Ingj-Logo)) TAKE 2 CAPSULES WITH MEALS 180 Capsule 3 03/26/19 24 Active Clobetasol Propionate 0.05 % External Ointment (Temovate) Apply topically to affected area 2 times a day. Apply to buttocks area as needed for itching 30 g 3 06/11/19 24 Active Additional Information Patient not taking.Reported on 01/11/2024 metFORMIN HCl 500 MG Oral Tablet (Glucophage) Take 1 Tablet by mouth 2 times a day with morning and evening meals. Active Omeprazole 20 MG Oral Capsule Delayed Release (PriLOSEC)Indica tions:Gastroesop hageal reflux disease without esophagitis TAKE 2 CAPSULES EVERY MORNING 180 Capsule 1 10/06/19 24 Active Ondansetron HCl 4 MG Oral Tablet (Zofran) Take 1 Tablet by mouth every 12 hours as needed for Nausea. 30 Tablet 1 11/26/19 24 Active Additional Information Patient not taking.Reported on 01/11/2024 Indomethacin 50 MG Oral CapsuleIndicatio ns:Acute gout of right wrist, unspecified cause Take 1 Capsule by mouth 3 times a day as needed for Pain. 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 Slow transit constipation 08/31/2019 Gastroesophageal reflux disease without esophagi tis 08/31/2019 Need for hepatitis C screening test 08/31/2019 Dermatitis 08/31/2019 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 02/2002 Overview (05/02/2015): ICD-10 update of inactive term migraine nos 03/29/2002 Other specified congenital anomaly of kidney documented as of this encounter (statuses as of 01/13/2024) Immunizations Name Administration Dates Next Due COVID-19 mRNA, LNP-s, No Pre serve, 2-Dose Series (Rackwise) 04/20/2020,03/23/2020 Pneumococcal Conjugate Vacc, 13 Valent (Prevnar) 12/15/2019 Pneumococcal Polysaccharide PPV23 (Pneumovax) Seasonal Influenza, Quadrivalent Hd (Fluzone Hd) 01/26/2023 Seasonal Influenza, Quadrivalent Hd, 65+ Yrs 03/2019 documented as of this encounter Social History Tobacco Use Types Packs/Day Years Used Date Smoking Tobacco: Never Smokeless Tobacco: Never Alcohol Use Standard Drinks/Week Comments Yes 0 (1 standard drink = 0.6 oz pur e alcohol) rarely PHQ-2 Answer Date Recorded PHQ-2 Score 1 12/15/2019 Hunger Vital Sign Answer Date Recorded Worried About Running Out of Food in the Last Ye ar Never true 12/15/2019 Ran Out of Food in the Last Year Never true 12/15/2019 Comments No Sex and Gender Information Value Date Recorded Sex Assigned at Not on file Legal Sex Female 5:26 AM EST Gender Identity Not on file Sexual Orientation Not on file 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 Answer Date of Assessment Author No 02/16/2020 2:22 PM Everardo Iqbal RN * Are you blind or do you have serious difficulty seeing, even when wearing glasses? Answer Date of Assessment Author No 02/16/2020 2:22 PM Everardo Iqbal RN * Do you have serious difficulty walking or climbing stairs? (5 years old or older) Answer Date of Assessment Author No 02/19/2020 12:46 PM EST Ana Laura Lovett RN * Do you have difficulty dressing or bathing? (5 years old or older) Answer Date of Assessment Author No 02/16/2020 2:22 PM Everardo Iqbal RN * Because of a physical, mental, or emotional condition, do you have difficulty doing errands alone such as visiting a doctors office or shopping? (15 years old or older) Answer Date of Assessment Author No 02/16/2020 2:22 PM Everardo Iqbal RN documented as of this encounter Mental Status * Because of a physical, mental, or emotional condition, do you have serious difficulty concentrating, remembering, or making decisions? (5 years old or older) Answer Entry Date Author No 02/16/2020 2:22 PM Everardo Iqbal RN documented in this encounter Miscellaneous Notes * Telephone Encounter - Obinna Santo Epic Support - 01/13/2024 2:56 PM EST [facility] requesting 10-20-2023 to 11-17-2023 MRI LIVER, PET CT images be pushed to their system. [place] Authorization to Release on file. Images pushed to [facility] All ([employer]) Associated report(s) not needed. documented in this encounter Plan of Treatment Upcoming Encounters Date Type Department Care Team (Late st Contact Info) Description 01/28/2024 1:00 PM EST Immunization/Injec tion Hematology/Oncology Treatment, [place] [address] [place] [address] Sridevi, Chair 3 Hem Onc [facility] [address] [facility] [place] [address] 02/23/2024 2:00 PM EST Office Visit Hematology/Oncology [facility] [address] [facility] [place] [phone] César Delong MD [address] [facility] [place] [address] 03/17/2024 11:00 AM EST Office Visit Gastroenterology [address] [place] [address] Isabela Samuels CRNP [address] [place] [address] 08/09/2024 8:00 AM EDT Office Visit Family Medicine [address] [place] [phone] Gisell Alfonso MD [address] [place] [address] [place] [address] Health Maintenance Due Date Last Done Comments Cologuard 06/04/1995 Sigmoidoscopy 06/04/1995 Fecal Occult Blood Test 04/28/2001 04/28/2000 Adult Wellness Visit 2016 Depression Monitoring 12/14/2020 12/15/2019 COVID-19 Vaccine ( season) 2023 04/20/2020, 03/23/2020 Influenza Vaccine (FLU shot) (#1) 2023 01/26/2023, 12/11/2019, 12/07/2013 HbA1c 04/02/2024 04/02/2023, 11/05/2022 Mammogram 09/08/2024 09/09/2023, 11/02/2019 Lipid Panel 04/02/2028 04/02/2023, 10/10, 08/01/2021, Additional history exists Colonoscopy 12/03/2030 12/03/2020, 11/09, 07/29/2017, Additional history exists Colorectal Cancer Screening 12/03/2030 DXA Scan Discontinued 12/13/2017 Pneumococcal Vaccine: 65+ Years Completed 03/27/2021, 12/15/2019 HPV (Gardasil) Vaccine Aged Out No lo nger eligible based on patient's age to complete this topic Hepatitis B Vaccine Aged Out No longe r eligible based on patient's age to complete this topic MENINGOCOCCAL (MENACTRA/MENVEO) Aged Out No longer eligible based on patient's age to complete this topic Zoster Vaccines Discontinued documented as of this encounter Medical Devices Not on filedocumented as of this encounter Advance Directives * Full Code (Latest Code Status on File) Date Activated Date Inactivated Comments 02/17/2020 11:33 AM 02/23/2020 4:33 PM This order r eflects the patients wishes and were consensually agreed upon. Question Answer Comments Discussion of Advance Directives occurred with: Not Discussed Does the patient have a Living Will? No Does the patient have Health Care Power of Attor tad? No * Full Code Date Activated Date Inactivated Comments 02/16/2020 2:47 PM 02/17/2020 11:33 AM This order re flects the patients wishes and were consensually agreed upon. Question Answer Comments Discussion of Advance Directives occurred with: Not Discussed Care Teams Grinding Mill Operator Relationship Specialty Start Date End Date Gisell Alfonso MD [address] [place] [address] [place] [address] PCP - General Family Medicine 09/08/19 documented as of this encounter
--- OUTSIDE RECORDS SUMMARY | 2024-01-18 19:23 | External Medical Summary | Summary of Care ---
Author Name Unknown Organization [facility] Address [address] [facility] [address] Phone [phone] Care Team Providers Care Rn Prior Authorization Name Role Phone Gisell Alfonso MD Primary Care Prov ider Reason for Visit * Reason Comments Acute Pt is having swellin g in R hand, stated it is extremely painful. Skin is reddened. Pain started Wednesday, Wednesday is swollen. Pt has restricted range of motion in wrist and fingers. Has been using ibuprofen and tramadol for pain, minimal relief. Using ice for swelling. No swelling relief. Encounter Details Date Type Department Care Team (Late st Contact Info) Description 01/11/2024 1:00 PM EST Office Visit Family Medicine [address] [phone] Bonnie Roberts PA-C [address] [place] [address] [place] [address] Acute gout of right wrist, unspecified cause* Allergies Active Allergy Reactions Criticality Noted Date Comments Corticosteroids Hives High 04/28/2000 Other reaction(s): ItchyNervous documented as of this encounter (statuses as of 01/11/2024) Medications Biotin 10 MG TABS 5000 mcg [...] Information Patient not taking.Reported on 01/11/2024 Nystatin 551572 UNIT/GM External Powder (Nystop) TWICE A DAY [...] Information Patient not taking.Reported on 11/10/2023 Creon [id number] UNIT Oral Capsule Delayed Release Particles (Pancrelipase ([id number]-[id number]-Qoyq)) TAKE 2 CAPSULES WITH MEALS 180 Capsule [...] as of this encounter (statuses as of 01/11/2024) Active Problems Problem Noted Date Diagnosed Date [...] as of this encounter (statuses as of 01/11/2024) Immunizations Name Administration Dates Next Due COVID-19 mRNA, LNP-s, No Pre serve, 2-Dose Series (Pfizer) 04/20/2020,03/23/2020 Pneumococcal Conjugate Vacc, 13 Valent (Prevnar) [...] in the Last Year Never true 12/15/2019 Utilities Answer Date Recorded Do you have trouble paying y our heating, water, or electric bill? (Adult - for ages 18 years and over) Not on file 07/27/2023 Is your family able to pay t he heat, water, or electric bill? (Household - for ages 0-17 years) Not on file 07/27/2023 Does your family have access to good internet? (Household - for ages 0-17 years) Not on file 07/27/2023 Social Connections Answer Date Recorded How often do you feel lonely or isolated from those around you? 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 Answer Date of Assessment Author No 02/16/2020 2:22 PM EST Everardo Stone RN * Are you blind or do you have serious difficulty seeing, even when wearing glasses? Answer Date of Assessment Author No 02/16/2020 2:22 PM EST Everardo Stone RN * Do you have serious difficulty [...] Everardo Iqbal RN documented in this encounter Progress Notes * Bonnie Roberts PA-C - 01/11/2024 1:08 PM EST Nursing Notes: Shorty Anthony OPERATOR [employer] LOCATING [employer] 01/11/24 1304 Sign at exiting of workspace The patient has been properly identified by confirmation of name and date of . Chief Complaint Patient presents with Acute Pt is having swelling in R hand, stated it is extremely painful. Skin is reddened. Pain started Wednesday, Wednesday is swollen. Pt has restricted range of motion in wrist and fingers. Has been using ibuprofen and tramadol for pain, minimal relief. Using ice for swelling. No swellingrelief. Pt here today with pain and swelling at right wrist. Pt has redness, pain with light touch. Pt denies injury. Pt has pain with movements. Pt has been taking some OTC meds with little relief. Review of patient's allergies indicates: Allergen Reactions Corticosteroids Hives Other reaction(s): Itchy Nervous Current Outpatient Medications Medication Sig Dispense Refill Biotin 10 MG TABS 5000 mcg daily Acetaminophen 500 MG Oral Tablet (Tylenol) 2 caps every 8 hours for 3 days, then 1 cap every 4 hours as needed for pain. Do not exceed 3000mg acetaminophen (Tylenol) every 24 hours. 30 Tab 0 Polyethylene Glycol 3350 17 GM Oral Packet (Miralax) Take 1 Packet by mouth daily. For [id number] Each 1 Ibuprofen 600 MG Oral Tablet (Motrin) Take 1 Tab by mouth every 6 hours as needed (pain). With food. 30 Tab 0 diphenhydrAMINE HCl 25 MG Oral Capsule (Benadryl) Take 1 Capsule by mouth at bedtime as needed for Itching. Creon [id number] UNIT Oral Capsule Delayed Release Particles (Pancrelipase ([id number]-[id number]-Ihkt)) TAKE 2 CAPSULES WITH MEALS 180 Capsule 3 metFORMIN HCl 500 MG Oral Tablet (Glucophage) Take 1 Tablet by mouth 2 times a day with morning andevening meals. Omeprazole 20 MG Oral Capsule Delayed Release (PriLOSEC) TAKE 2 CAPSULES EVERY MORNING 180 Capsule 1 Triamcinolone Acetonide 0.1 % External Cream (Aristocort) Apply topically to affected area 2 times a day. To affected areas for up to 2 weeks (Patient not taking: Reported on 01/11/2024) 80 g 1 Nystatin 346717 UNIT/GM External Powder (Nystop) TWICE A DAY (Patient not taking: Reported on 01/11/2024) metroNIDAZOLE 0.75 % External Gel (Metrogel) Apply topically to affected area 2 times a day. Apply to affected area (Patient not taking: Reported on 01/11/2024) 45 g 3 Penciclovir 1 % External Cream (Denavir) Apply topically to affected area every 2 hours while awake. apply to cold sores for 4 days. (Patient not taking: Reported on 11/10/2023) 5 g 5 Clobetasol Propionate 0.05 % External Ointment (Temovate) Apply topically to affected area 2 times a day. Apply to buttocks area as needed for itching (Patient not taking: Reported on 01/11/2024) 30 g3 Ondansetron HCl 4 MG Oral Tablet (Zofran) Take 1 Tablet by mouth every 12 hours as needed for Nausea. (Patient not taking: Reported on 01/11/2024) 30 Tablet 1 No current facility-administered medications for this visit. 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 Type A blood, Rh negative Social History Socioeconomic History Marital status: Spouse name: kenneth Number of children: 3 Years of education: Not on file Highest education level: Not on file Occupational History Occupation: house keeping at [employer] Tobacco Use Smoking status: Never Smokeless tobacco: Never Vaping Use Vaping status: Never Used Substance and Sexual Activity Alcohol use: Yes Comment: rarely Drug use: No Sexual activity: Yes Partners: Male control/protection: Surgical Comment: BTL Other Topics Concern Not on file Social History Narrative Not on file Social Needs Financial Resource Strain: Not on file Food Insecurity: No Food Insecurity (12/15/2019) Hunger Vital Sign Worried About Running Out of Food in the Last Year: Never true Ran Out of Food in the Last Year: Never true Transportation Needs: Not on file Social Connections: Unknown (07/27/2023) Social Connections How often do you feel lonely or isolated from those around you? (Adult - for ages 18 years and over): Not on file Housing Stability: Not on file O:Blood pressure 130/82, pulse 94, temperature 97.9 F (36.6 C), temperature source Infrared , weight 156 lb 12.8 oz (71.1 kg), last menstrual period 04/08/2000, SpO2 97%. GENERAL: alert, healthy, and no distress EXTREMITIES: right wrist - mild erythema, no ecchymosis. Edema. Pain with light touch. Pain with ROM at wrist. A:Acute gout of right wrist, unspecified cause (Primary) - Indomethacin 50 MG Oral Capsule; Take 1 Capsule by mouth 3 times a day as needed for Pain. with food Start indomethacin. Any questions/problems, please call. If anything changes, worsens, develops newsx, please call VAL. Follow Up: Return if symptoms worsen or fail to improve. Bonnie Roberts PA-C documented in this encounter Nursing Notes * Shorty Anthony CMA - 01/11/2024 1:04 PM EST The patient has been properly identified by confirmation of name and date of . Chief Complaint Patient presents with Acute Pt is having swelling in R hand, stated it is extremely painful. Skin is reddened. Pain started Wednesday, Wednesday is swollen. Pt has restricted range of motion in wrist and fingers. Has been using ibuprofen and tramadol for pain, minimal relief. Using ice for swelling. No swellingrelief. documented in this encounter Plan of Treatment Upcoming Encounters Date Type Department Care Team (Late st Contact Info) Description 01/28/2024 1:00 PM EST Immunization/Injec tion Hematology/[place]cology [place] [address] [place] [phone] Sridevi, Chair 3 Hem Onc [facility] [address] [facility] [place] [address] 02/23/2024 2:00 PM EST Office Visit Hematology/Oncology [facility] [place] [address] [place] [phone] César Delong MD [address] [facility] [place] [address] 03/17/2024 11:00 AM EST Office Visit Gastroenterology [address] [place] [address] Isabela Samuels CRNP [address] [place] [address] 08/09/2024 8:00 AM EDT Office Visit Family Medicine [address] [place] [phone] Gisell Alfonso MD [address] [place] [address] [place] [address] Health Maintenance Due Date Last Done Comments [...] Not on filedocumented as of this encounter Visit Diagnoses Diagnosis Acute gout of right wrist, unspecified cause- Primary documented in this encounter Advance Directives * Full Code [...] Directives occurred with: Not Discussed Care Teams Rn Prior Authorization Relationship Specialty Start Date End Date Gisell Alfonso MD [address] [place] [address] [place] [phone] PCP - General Family Medicine 09/08/19 documented as of this encounter
--- OUTSIDE RECORDS SUMMARY | 2024-01-18 19:23 | External Medical Summary | Summary of Care ---
Author Name Unknown Organization [facility] Address [address] [place] [address] Phone [phone] Care Team Providers Care Mill Operator Helper Name Role Phone Gisell Alfonso MD Primary Care Prov ider Reason for Visit * Reason Onset Date Comments Imaging Records Request 01/05/2024 Encounter Details Date Type Department Care Team (Late st Contact Info) Description 01/05/2024 Telephone Radiology Film File [address] [place] [address] Support, Imaging Radiology [address] [place] [address] Imaging Records Request Allergies Active Allergy Reactions Criticality Noted Date Comments Corticosteroids Hives High 04/28/2000 Other reaction(s): ItchyNervous documented as of this encounter (statuses as of 01/05/2024) Medications Biotin 10 MG TABS 5000 mcg [...] Additional Information Patient not taking.Reported on 11/10/2023 Nystatin 592516 UNIT/GM External Powder (Nystop) TWICE A DAY 11/17/19 22 Active diphenhydrAMINE HCl 25 MG Oral Capsule (Benadryl) Take 1 Capsule by mouth at bedtime as needed for Itching. Active metroNIDAZOLE 0.75 % External Gel (Metrogel)Indica tions:Folliculit is Apply topically to affected area 2 times a day. Apply to affected area 45 g 3 03/27/19 23 Active Additional Information Patient not taking.Reported on 11/10/2023 Penciclovir 1 % External Cream (Denavir) Apply topically to affected area every 2 hours while awake. apply to cold sores for 4 days. 5 g 5 11/18/19 23 Active Additional Information Patient not taking.Reported on 11/10/2023 Creon [id number] UNIT Oral Capsule Delayed Release Particles (Pancrelipase (Llw-Jszu-Cqip)) TAKE 2 CAPSULES WITH MEALS 180 Capsule 3 03/26/19 24 Active Clobetasol Propionate 0.05 % External Ointment (Temovate) Apply topically to affected area 2 times a day. Apply to buttocks area as needed for itching 30 g 3 06/11/19 24 Active Additional Information Patient not taking.Reported on 11/10/2023 metFORMIN HCl 500 MG Oral Tablet (Glucophage) [...] Nausea. 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 [place] Authorization to Release on file. Images pushed to [facility] All ([employer]) Associated report(s) not needed. documented in this encounter Plan of Treatment Upcoming Encounters Date Type Department Care Team (Late st Contact Info) Description 01/28/2024 1:00 PM EST Immunization/Injec tion Hematology/Oncology Treatment, [place] [address] [place] [phone] [place], Chair 3 Hem Onc [facility] [address] [facility] [place] [address] 02/23/2024 2:00 PM EST Office Visit Hematology/Oncology [facility] [place] [address] [facility] [place] [address] César Delong MD 200 [facility] [place] [address] 03/17/2024 11:00 AM EST Office Visit Gastroenterology [address] [place] [address] Isabela Samuels CRNP [address] [place] [address] 08/09/2024 8:00 AM EDT Office Visit Family Medicine [address] [place] [phone] Gisell Alfonso MD [address] [place] [address] [place] [address] Health Maintenance Due Date Last Done Comments [...] Directives occurred with: Not Discussed Care Teams Mill Operator Helper Relationship Specialty Start Date End Date Gisell Alfonso MD [address] [place] [address] [place] [address] PCP - General Family Medicine 09/08/19 documented as of this encounter
--- OUTSIDE RECORDS SUMMARY | 2024-01-18 23:18 | External Medical Summary | Summary of Care ---
Author Name Unknown Organization [facility] Address [address] [place] [address] Phone [phone] Care Team Providers Care Dental Ceramist Assistant Name Role Phone Gisell Alfonso MD Primary Care Prov ider Reason for Visit * Reason Onset Date Comments Imaging Records Request 01/17/2024 Encounter Details Date Type Department Care Team (Late st Contact Info) Description 01/17/2024 Telephone Radiology Film File [address] [place] [address] Support, Imaging Radiology [address] [place] [address] Imaging Records Request Allergies Active Allergy Reactions Criticality Noted Date Comments Corticosteroids Hives High 04/28/2000 Other reaction(s): ItchyNervous documented as of this encounter (statuses as of 01/17/2024) Medications Biotin 10 MG TABS 5000 mcg [...] Information Patient not taking.Reported on 01/11/2024 Nystatin [id number] UNIT/GM External Powder (Nystop) TWICE A DAY [...] Information Patient not taking.Reported on 11/10/2023 Creon [id number] UNIT Oral Capsule Delayed Release Particles (Pancrelipase (Odo-Irjt-Mtvm)) TAKE 2 CAPSULES WITH MEALS 180 Capsule [...] as of this encounter (statuses as of 01/17/2024) Active Problems Problem Noted Date Diagnosed Date [...] as of this encounter (statuses as of 01/17/2024) Immunizations Name Administration Dates Next Due COVID-19 mRNA, LNP-s, No Pre serve, 2-Dose Series (Neolane) 04/20/2020,03/23/2020 Pneumococcal Conjugate Vacc, 13 Valent (Prevnar) [...] encounter Miscellaneous Notes * Telephone Encounter - Patricia Al, System Support - 01/17/2024 4:51 PM EST [facility] Patient intake requesting MRI liver 10/20/23, PET CT 11/17/23 images be pushed to their system. [place] Authorization to Release on file. Images pushed to [facility] All ([employer]) Report(s) faxed to [phone] . documented in this encounter Plan of Treatment Upcoming Encounters Date Type Department Care Team (Late st Contact Info) Description 01/28/2024 1:00 PM EST Immunization/Injec tion Hematology/Oncology Treatment, [place] [address] [place] [address] Sridevi, Chair 3 Hem Onc [facility] [address] [facility] [place] [address] 02/23/2024 2:00 PM EST Office Visit Hematology/Oncology [facility] [place] [address] [facility] [place] [phone] César Delong MD 200 [facility] [place] [address] 03/17/2024 11:00 AM EST Office Visit Gastroenterology [address] [place] [address] Isabela Samuels CRNP [address] [place] [address] 08/09/2024 8:00 AM EDT Office Visit Family Medicine [address] [place] [phone] Gisell Alfonso MD [address] [place] [address] [place] [address] Health Maintenance Due Date Last Done Comments [...] 11:33 AM 02/23/2020 4:33 PM This order reflects the patients wishes and were consensually agreed [...] Directives occurred with: Not Discussed Care Teams Dental Ceramist Assistant Relationship Specialty Start Date End Date Gisell Alfonso MD [address] [place] [address] [place] [address] PCP - General Family Medicine 09/08/19 documented as of this encounter
--- OUTSIDE RECORDS SUMMARY | 2024-01-23 02:57 | External Medical Summary | Summary of Care ---
Author Name Unknown Organization [facility] Address [address] [place] [address] Phone [phone] Care Team Providers Care Urban And Regional Planner Name Role Phone Gisell Alfonso MD Primary Care Prov ider Reason for Visit * Reason Onset Date Comments Imaging Records Request 01/18/2024 Encounter Details Date Type Department Care Team (Late st Contact Info) Description 01/18/2024 Telephone Radiology Film File [address] [place] [address] Support, Imaging Radiology [address] [place] [address] Imaging Records Request Allergies Active Allergy Reactions Criticality Noted Date Comments Corticosteroids Hives High 04/28/2000 Other reaction(s): ItchyNervous documented as of this encounter (statuses as of 01/18/2024) Medications Biotin 10 MG TABS 5000 mcg [...] Information Patient not taking.Reported on 01/11/2024 Nystatin [id number] UNIT/GM External Powder (Nystop) TWICE A DAY [...] Information Patient not taking.Reported on 11/10/2023 Creon [id number] UNIT Oral Capsule Delayed Release Particles (Pancrelipase (Mnj-Ewzk-Ynxj)) TAKE 2 CAPSULES WITH MEALS 180 Capsule [...] as of this encounter (statuses as of 01/18/2024) Active Problems Problem Noted Date Diagnosed Date [...] as of this encounter (statuses as of 01/18/2024) Immunizations Name Administration Dates Next Due COVID-19 mRNA, LNP-s, No Pre serve, 2-Dose Series (appening) 04/20/2020,03/23/2020 Pneumococcal Conjugate Vacc, 13 Valent (Prevnar) [...] 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 [place] Authorization to Release on file. Images pushed to [facility] All ([employer]) Associated report(s) not needed. documented in this encounter Plan of Treatment Upcoming Encounters Date Type Department Care Team (Late st Contact Info) Description 01/28/2024 1:00 PM EST Immunization/Injec tion Hematology/Oncology Treatment, [place] [address] [place] [address] Sridevi, Chair [address] Hem On[address] [place] [address] 02/23/2024 2:00 PM EST Office Visit Hematology/Oncology [facility] 200 [facility] [place] [phone] César Delong MD 200 [facility] [place] [address] 03/17/2024 11:00 AM EST Office Visit Gastroenterology [address] [place] [address] Isabela Samuels CRNP [address] [place] [address] 08/09/2024 8:00 AM EDT Office Visit Family Medicine [address] [place] [phone] Gisell Alfonso MD [address] [place] [address] [place] [address] Health Maintenance Due Date Last Done Comments [...] Directives occurred with: Not Discussed Care Teams Urban And Regional Planner Relationship Specialty Start Date End Date Gisell Alfonso MD [address] [place] [address] [place] [address] PCP - General Family Medicine 09/08/19 documented as of this encounter
--- OUTSIDE RECORDS SUMMARY | 2024-01-23 02:57 | External Medical Summary | Summary of Care ---
Author Name Unknown Organization [facility] Address [address] [place] [address] Phone [phone] Care Team Providers Care Access Clerk Name Role Phone Gisell Alfonso MD Primary Care Prov ider Reason for Visit * Reason Onset Date Comments Imaging Records Request 01/20/2024 Encounter Details Date Type Department Care Team (Late st Contact Info) Description 01/20/2024 Telephone Radiology Film File [address] [place] [address] Support, Imaging Radiology [address] [place] [address] Imaging Records Request Allergies Active Allergy Reactions Criticality Noted Date Comments Corticosteroids Hives High 04/28/2000 Other reaction(s): ItchyNervous documented as of this encounter (statuses as of 01/20/2024) Medications Biotin 10 MG TABS 5000 mcg [...] Information Patient not taking.Reported on 01/11/2024 Nystatin [id number] UNIT/GM External Powder (Nystop) TWICE A DAY [...] Information Patient not taking.Reported on 11/10/2023 Creon [id number] UNIT Oral Capsule Delayed Release Particles (Pancrelipase (Ocd-Djfn-Tbgw)) TAKE 2 CAPSULES WITH MEALS 180 Capsule [...] as of this encounter (statuses as of 01/20/2024) Active Problems Problem Noted Date Diagnosed Date [...] as of this encounter (statuses as of 01/20/2024) Immunizations Name Administration Dates Next Due COVID-19 mRNA, LNP-s, No Pre serve, 2-Dose Series (Feedback) 04/20/2020,03/23/2020 Pneumococcal Conjugate Vacc, 13 Valent (Prevnar) [...] 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 [place] Authorization to Release on file. Images pushed to [facility] All ([employer]) Associated report(s) not needed. documented in this encounter Plan of Treatment Upcoming Encounters Date Type Department Care Team (Late st Contact Info) Description 01/21/2024 3:40 PM EST Office Visit [address] [phone] Lizbeth Grullon MD [address] [place] [address] [place] [phone] 01/28/2024 1:00 PM EST Immunization/Injec tion Hematology/Oncology Treatment, [place] [address] [place] [phone] Park, Chair 3 Hem Onc [facility] [address] [place] [address] 02/23/2024 2:00 PM EST Office Visit Hematology/Oncology [facility] [address] [place] [phone] César Delong MD [address] [place] [address] 03/17/2024 11:00 AM EST Office Visit Gastroenterology [address] [place] [address] Isabela Samuels CRNP [address] [place] [address] 08/09/2024 8:00 AM EDT Office Visit Family Medicine [address] [place] [phone] Gisell Alfonso MD [address] [place] [address] [place] [address] Health Maintenance Due Date Last Done Comments [...] 2:47 PM 02/17/2020 11:33 AM This order r eflects the patients wishes and were consensually agreed upon. Question Answer Comments Discussion of Advance Directives occurred with: Not Discussed Care Teams Access Clerk Relationship Specialty Start Date End Date Gisell Alfonso MD [address] [place] [address] [place] [phone] PCP - General Family Medicine 09/08/19 documented as of this encounter
== END 2024-01-18 14:45 | disposition home or self-care (01) | DRG 392 ==
LOC: ED 18:27 → OBSVTOIN 01-18 02:58 → 3N 01-18 02:58 → INTOOBSV 01-18 02:58 → 3N 01-18 04:07

== ENCOUNTER 2024-01-24 09:25 | Observation (INO) ==
--- NOTE | 2023-12-29 11:42 | PAT Medication Instructions ---
Medication Instructions Date of Service December 29, 2023 Home Medications Medication Instructions Recorded polyethylene glycol 3350 17 gram 17 g PO DAILY PRN Constipation #30 01/25/19 oral powder packet (Miralax) ea tramadol 50 mg tablet 50 mg PO Q8H PRN pain #30 tabs 12/14/23 polyethylene glycol 3350 17 gram oral powder packet (Miralax) 17 g PO DAILY PRN Constipation fexofenadine 180 mg tablet 180 mg PO DAILY PRN Congestion triamcinolone acetonide 0.1 % topical cream 1 applic topical BID PRN Rash tramadol 50 mg tablet 50 mg PO Q8H PRN pain biotin 10 mg tablet 10 mg PO DAILY ibuprofen 400 mg tablet 400 mg PO Q6H PRN Pain omeprazole 40 mg capsule,delayed release 40 mg PO QAM permethrin 5 % topical cream (Elimite) 1 applic topical ONCE PRN Rash STOP taking 24 hours before surgery triamcinolone acetonide 0.1 % topical cream 1 applic topical BID PRN Rash permethrin 5 % topical cream (Elimite) 1 applic topical ONCE PRN Rash DO NOT take the morning of surgery polyethylene glycol 3350 17 gram oral powder packet (Miralax) 17 g PO DAILY PRN Constipation fexofenadine 180 mg tablet 180 mg PO DAILY PRN Congestion biotin 10 mg tablet 10 mg PO DAILY Take morning of surgery With a small sip of water, OTHERWISE NOTHING TO EAT OR DRINK AFTER MIDNIGHT: tramadol 50 mg tablet 50 mg PO Q8H PRN pain (if needed) omeprazole 40 mg capsule,delayed release 40 mg PO QAM Take evening before surgery polyethylene glycol 3350 17 gram oral powder packet (Miralax) 17 g PO DAILY PRN Constipation (if needed) fexofenadine 180 mg tablet 180 mg PO DAILY PRN Congestion (if needed) tramadol 50 mg tablet 50 mg PO Q8H PRN pain (if needed) Other Notes If you have any questions please call us at [phone] or [phone] or [phone] or [phone]
--- NOTE | 2024-01-04 10:05 | Anesthesiology Consultation ---
Date of Service January 04, 2024 Assessment & Plan (1) Encounter for pre-operative examination: - check CBC with diff STAT am DOS given recent chemotherapy. - liver cancer: patient states was referred to liver transplant clinic and had phone call for history intake 01/03, she stated they are going to call her again in a few weeks to schedule an appointment for the transplant clinic. 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 Recently found to have liver lesions on MRI, IR biopsy completed with path showing metastatic neuroendocrine tumor...Lanreotide injections...possible referral for liver transplant evaluation...currently undecided..." - Case discussed in detail with Dr. Smith who advised patient can proceed as planned pending anesthesiologist evaluation am DOS. - Outpatient joint assessment: Patient is currently scheduled for inpatient pathway. If re-evaluated and patient/surgeon requests outpatient pathway, patient is not candidate for outpatient joint program from anesthesia standpoint. Patient states this was also changed and advised by surgeon's office after her visit. Booking now showing overnight stay. Chart Review Chart Review: Acceptable Risk for Surgery and Patient seen in Pre Admission Testing Teaching & Discussion Pre-Anesthesia Teaching/Discussion Notes: Instructed NPO after midnight before surgery, except medications with 15 cc of water. Medication instructions provided according to the PAT guidelines. History Surgery Operation Date: 01/24/24 10:20 Proposed Procedures p OP: Right Reverse Total Shoulder Arthroplasty - Mg Peralta DO Height/Weight Height: 5 ft 3 in Weight: 70.9 kg Allergies Allergy/AdvReac Type Severity Reaction Status Date / Time Corticosteroids Allergy Intermediate RASH/NERVOU Verified 12/28/23 09:36 (Glucocorticoids) SNESS Medications Home Medications Medication Instructions Recorded Confirmed Last Taken polyethylene glycol 3350 17 gram 17 g PO DAILY PRN Constipation #30 01/25/19 12/28/23 12/08/19 oral powder packet (Miralax) ea fexofenadine 180 mg tablet 180 mg PO DAILY PRN Congestion 02/25/23 11/19/24 02/24/23 triamcinolone acetonide 0.1 % 1 applic topical BID PRN Rash 04/04/22 12/28/23 04/03/22 topical cream tramadol 50 mg tablet 50 mg PO Q8H PRN pain #30 tabs 12/14/23 12/28/23 Unknown biotin 10 mg tablet 10 mg PO DAILY 12/28/23 12/28/23 Unknown ibuprofen 400 mg tablet 400 mg PO Q6H PRN Pain 12/28/23 12/28/23 Unknown omeprazole 40 mg capsule,delayed 40 mg PO QAM 12/28/23 12/28/23 Unknown release permethrin 5 % topical cream 1 applic topical ONCE PRN Rash 12/28/23 12/28/23 Unknown (Elimite) Past Medical History Medical History (Updated 01/04/24 @ 15:45 by Kat Villalobos PA-C) AAA (abdominal aortic aneurysm) Diverticular disease denies h/o diverticulitis GERD (gastroesophageal reflux disease) controlled, stable per pt History of COVID-19 (~2019) denies hospitalization-symptoms resolved History of pancreatic cancer (~2020) s/p surgery History of postoperative nausea and vomiting Hx SBO just blockage, no cancer Liver cancer dx Oct 2023 > gets chemo shot once monthly in hip (states mild nausea and occasional diarrhea are side effects so far) > [place] with [facility] > states was referred to transplant clinic-[facility] Migraine Osteoarthritis Patient denies h/o stroke, seizures, heart attack, heart failure, DM, HTN, blood clots/DVTs or blood transfusions. Exercise / Class Metabolic Activity II 4-5 Yardwork/Stairs/Walk up hill (shortness of breath with one flight of stairs ongoing for several years-denies change or worsening; denies chest discomfort) Past Family History Family History (Updated 01/04/24 @ 10:41 by Kat Villalobos PA-C) Sister Diabetes Brother Diabetes Brother Diabetes Sister Diabetes Past Surgical History Surgical History (Updated 01/04/24 @ 10:39 by Kat Villalobos PA-C) History of cataract surgery bilat History of colonoscopy History of esophagogastroduodenoscopy (EGD) History of kidney surgery 1974 > because "kidney dropped, they tacked back in place" History of repair of rotator cuff right History of Whipple procedure Hx of appendectomy Hx of cholecystectomy Hx of resection of pancreas 2020 Hx of resection of small bowel just blockage, no cancer S/P tonsillectomy and adenoidectomy Past Anesthesia History No Hx of Anesthesia Complications and No Family Hx of Anesthesia Complications History of PONV No Hx of Motion Sickness and History of PONV (does well with IV pre-dosing per patient) Social History Smoking Status: Former smoker Do You Dip or Chew Tobacco: No Smoking End Date: in Hx Alcohol Use: Yes Alcohol type: wine alcohol intake frequency: a few times a month Hx Substance Use: No substance use type: does not use Review of Systems Snoring, denies witnessed apneas. Patient denies chest pain, fever, chills, cough, wheezing, or palpitations. Physical Exam Vital Signs Vitals BP 146/82 P 78 TEMP 97.9 SP02 95% on RA RESP 18 Physical Patient resting comfortably in chair in no acute distress, alert and oriented, responding appropriately throughout visit Full cervical extension range of motion without pain TMD 3.5 finger breadths Mallampati Score 3 Dentition: intact, denies chipped or loose teeth, caps/crowns, implants or bridges Lungs: normal respiratory effort. Good air movement, clear throughout to auscultation, no adventitious breath sounds Cardiac: regular rate and rhythm, no murmurs noted Carotid arteries: negative bruit bilat Lab Results Anesthesia Preop Results Results Anesthesia Widget: WBC 6.49 K/ul (4.8-10.8) 01/04/24 Hgb 12.5 g/dl (12.0-16.0) 01/04/24 Hct 37.2 % (37.0-47.0) 01/04/24 Plt 405 K/uL (130-400) H 01/04/24 Na 138 mmol/L (136-145) 01/04/24 K 4.4 mmol/L (3.5-5.1) 01/04/24 Cl 104 mmol/L (98-107) 01/04/24 CO2 29 mmol/L (21-32) 01/04/24 BUN 11 mg/dl (6-23) 01/04/24 Creat 0.59 mg/dl (0.6-1.2) L 01/04/24 Glucose Level 122 mg/dl (70-99(Fasting)) H 01/04/24 PT 10.3 Seconds (9.0-12.0) 01/04/24 PTT 25 Seconds (21-31) 01/04/24 INR 0.9 (0.9-1.1) 01/04/24 Blood Type A Negative 01/04/24 Antibody Screen NEGATIVE 01/04/24 Testing Electrocardiogram Date: 01/04/24 NSR, rate 68 bpm Chest X-Ray Date: 01/04/24 No evidence of acute cardiopulmonary disease, communicable disease or tuberculosis. No significant interval change.
[~2024-01-24 09:25] MED LIST changes: -ACET-1256 PO; +BUPIVACAINE 0.5 % 5 MG/1 ML PF 10ML VIAL ONE; -CHOL1TAB42 PO; -CLC100 PO; -KRIL1CAP7 PO; -LIDOCAINE HCL 2% 2 ML VIAL (20MG/ML) ONE; -LINA1CAP PO; -MIDAZOLAM HCL 1 MG/ML 2ML VIAL ONE; -ONDANSETRON INJ 2 MG/ML 2 ML VIAL ONE; -PRLSR20 PO; -PROPOFOL IV EMULSION 10 MG/ML 20 ML VIAL IV ONE; -PSEU60TA26 PO
--- NOTE | 2024-01-24 10:08 | History & Physical Bridge Note ---
Date of Service January 24, 2024 History & Physical Bridge Note I have examined the patient, reviewed the History & Physical and in the interval since the performance of the History & Physical I have noted the following changes of clinical significance: no changes noted
[2024-01-24 10:11] LABS: Basophils # (auto) 0.06 K/uL (0.00-0.20); Basophils % (auto) 0.7 %; Eosinophils # (auto) 0.17 K/uL (0.00-0.50); Eosinophils % (auto) 2.1 %; Hematocrit (blood only) 37.1 % (37.0-47.0); Hemoglobin 12.3 g/dl (12.0-16.0); Immature Granulocytes # (auto) 0.05 K/uL (0.01-0.20); Immature Granulocytes % (auto) 0.6 %; Lymphocytes # (auto) 1.04 K/uL (1.20-3.40); Lymphocytes % (auto) 12.6 %; Mean Corpuscular Hemoglobin 30.4 pg (25.0-34.0); Mean Corpuscular Hgb Conc 33.2 g/dL (32.0-36.0); Mean Corpuscular Volume 91.8 fL (80.0-100.0); Mean Platelet Volume 9.2 fL (9.4-12.4); Monocytes # (auto) 0.58 K/uL (0.11-0.59); Neutrophils # (auto) 6.38 K/uL (1.40-6.50); Platelet Count 401 K/uL (130-400); RDW Coefficient of Variation 13.1 % (11.5-14.5); RDW Standard Deviation 43.8 fL (36.4-46.3); Red Blood Count 4.04 M/uL (4.20-5.40); White Blood Count 8.28 K/ul (4.8-10.8)
[2024-01-24] MEDS: LR 15ML/HR IV SCH (10:14)
[2024-01-24] MEDS: FAMOTIDINE 20 MG TAB PO SCH (10:15)
[2024-01-24] MEDS: LR 60ML/HR IV SCH (10:15)
[2024-01-24] MEDS: dexAMETHasone**PF** 10 MG/ML VIAL IV SCH (10:15)
[2024-01-24] MEDS: ACETAMINOPHEN 500 MG TAB PO SCH (10:15)
[2024-01-24] MEDS: GABAPENTIN 300 MG CAP PO SCH (10:15)
[2024-01-24] MEDS ORDERED: fentaNYL citrate PF 100 MCG/2 ML VIAL ONE (11:38)
[2024-01-24] MEDS ORDERED: MIDAZOLAM HCL 1 MG/ML 2ML VIAL ONE (11:38)
[2024-01-24] MEDS ORDERED: LIDOCAINE 2% 2 ML VIAL/AMP(20MG/ML) INFIL ONE (11:42)
[2024-01-24] MEDS ORDERED: ROCURONIUM BROMIDE 10 MG/ML 5 ML VIAL IV ONE (11:42)
[2024-01-24] MEDS ORDERED: PROPOFOL IV EMULSION 10 MG/ML 20 ML VIAL IV ONE (11:42)
[2024-01-24] MEDS: TRANEXAMIC ACID 1,000 MG **IV Pre-op IV SCH (12:12)
--- OUTSIDE RECORDS SUMMARY | 2024-01-24 12:32 | External Medical Summary | Summary of Care ---
Author Name Unknown Organization [facility] Address [address] [place] [address] Phone [phone] Care Team Providers Care Perfume Maker Name Role Phone Gisell Alfonso MD Primary Care Prov ider Encounter Details Date Type Department Care Team (Late st Contact Info) Description 01/24/2024 Documentation General Internal Medicine [address] [place] [phone] Meeks, My Natasha Thi, DO [address] [place] [address] Allergies Active Allergy Reactions Criticality Noted Date Comments Corticosteroids Hives High 04/28/2000 Other reaction(s): ItchyNervous documented as of this encounter (statuses as of 01/24/2024) Medications Biotin 10 MG TABS 5000 mcg daily 08/31/19 20 Active Acetaminophen 500 MG Oral Tablet (Tylenol) 2 caps every 8 hours for 3 days, then 1 cap every 4 hours as needed for pain. Do not exceed 3000mg acetaminophen (Tylenol) every 24 hours. 30 Tab 02/22/19 21 Active Polyethylene Glycol 3350 17 GM Oral Packet (Miralax)Indicatio ns:Slow transit constipation Take 1 Packet by mouth daily. For constipation 90 Each 1 04/11/19 21 Active Ibuprofen 600 MG Oral Tablet (Motrin) Take 1 Tab by mouth every 6 hours as needed (pain). With food. 30 Tab 07/12/19 21 Active Triamcinolone Acetonide 0.1 % External Cream (Aristocort)Indica tions:Itching Apply topically to affected area 2 times a day. To affected areas for up to 2 weeks 80 g 1 03/23/19 23 Active Nystatin 742203 UNIT/GM External Powder (Nystop) 11/17/19 22 Active diphenhydrAMINE HCl 25 MG Oral Capsule (Benadryl) Take 1 Capsule by mouth at bedtime as needed for Itching. Active metroNIDAZOLE 0.75 % External Gel (Metrogel)Indicati ons:Folliculitis Apply topically to affected area 2 times a day. Apply to affected area 45 g 3 03/27/19 23 Active Penciclovir 1 % External Cream (Denavir) Apply topically to affected area every 2 hours while awake. apply to cold sores for 4 days. 5 g 5 11/18/19 23 Active Creon [id number] UNIT Oral Capsule Delayed Release Particles (Pancrelipase (Ksp-Xqbi-Zpfb)) TAKE 2 CAPSULES WITH MEALS 180 Capsule 3 03/26/19 24 Active Clobetasol Propionate 0.05 % External Ointment (Temovate) Apply topically to affected area 2 times a day. Apply to buttocks area as needed for itching 30 g 3 06/11/19 24 Active Omeprazole 20 MG Oral Capsule Delayed Release (PriLOSEC)Indicati ons:Gastroesophage al reflux disease without esophagitis TAKE 2 CAPSULES EVERY MORNING 180 Capsule 1 10/06/19 24 Active Ondansetron HCl 4 MG Oral Tablet (Zofran) Take 1 Tablet by mouth every 12 hours as needed for Nausea. 30 Tablet 1 11/26/19 24 Active Indomethacin 50 MG Oral CapsuleIndications :Acute gout of right wrist, unspecified cause Take 1 Capsule by mouth 3 times a day as needed for Pain. with food 40 Capsule 1 01/11/20 24 Active Loperamide HCl 2 MG Oral Capsule (Imodium) 1 Capsule. 01/18/20 24 Active Ondansetron 4 MG Oral Tablet Disintegrating (Zofran) 01/18/20 24 Active traMADol HCl 50 MG Oral Tablet (Ultram) Take 1 Tablet by mouth every 8 hours as needed. For pain. 12/14/19 24 Active documented as of this encounter (statuses as of 01/24/2024) Active Problems Problem Noted Date Diagnosed Date Osteoarthritis of right shoulder 01/21/2024 Hx of resection of small bowel 01/21/2024 History of Whipple procedure 01/21/2024 Hx of resection of pancreas 01/21/2024 AAA (abdominal aortic aneurysm) 01/21/2024 Neuroendocrine tumor of liver 01/21/2024 Metastasis to liver 11/19/2023 Prediabetes 11/16/2022 Overview: Per Prediabetes protocol Recurrent major depressive disorder, in full rem ission 03/27/2022 Hypoglycemia 09/04/2020 Elevated blood pressure read ing without diagnosis of hypertension 08/19/2020 Other hyperlipidemia 08/14/2020 Moderate episode of recurrent major depressive d isorder 04/10/2020 Neuroendocrine carcinoma of pancreas 03/12/2020 DVT prophylaxis 02/23/2020 Duodenal mass 02/17/2020 Slow transit constipation 08/31/2019 Gastroesophageal reflux disease without esophagi tis 08/31/2019 Need for hepatitis C screening test 08/31/2019 Dermatitis 08/31/2019 Anatomical narrow angle, bilateral 10/30/2013 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 02/2002 Overview (05/02/2015): ICD-10 update of inactive term migraine nos 03/29/2002 Other specified congenital anomaly of kidney documented as of this encounter (statuses as of 01/24/2024) Immunizations Name Administration Dates Next Due COVID-19 mRNA, LNP-s, No Pre serve, 2-Dose Series (Pfizer) 04/20/2020,03/23/2020 Pneumococcal Conjugate Vacc, 13 Valent (Prevnar) 12/15/2019 Pneumococcal Polysaccharide PPV23 (Pneumovax) Seasonal Influenza Vac., MDV, IM, 0.5 mL (Fluzon e) 12/07/2013 Seasonal Influenza, Quadrivalent Hd (Fluzone Hd) 01/26/2023 [...] 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 [...] Everardo Iqbal RN documented in this encounter Plan of Treatment Upcoming Encounters Date Type Department Care Team (Late st Contact Info) Description 01/28/2024 1:00 PM EST Immunization/Injec tion Hematology/Oncology Treatment, [place] [address] [place] [phone] Sridevi, Chair 3 Hem Onc [place] [address] [place] [address] 02/23/2024 2:00 PM EST Office Visit Hematology/Oncology [facility] Sridevi [place] [facility] [place] [phone] César Delong MD [address] [facility] [place] [address] 03/17/2024 11:00 AM EST Office Visit Gastroenterology [address] [place] [address] Isabela Samuels CRNP [address] [place] [address] 03/20/2024 8:00 AM EST Office Visit Family Medicine [address] [place] [phone] Lizbeth Grullon MD [address] [place] [address] [place] [phone] 08/09/2024 8:00 AM EDT Office Visit Family [address] [phone] Gisell Alfonso MD [address] [place] [address] [place] [address] Health Maintenance Due Date Last Done Comments Cologuard 06/04/1995 Sigmoidoscopy 06/04/1995 Fecal Occult Blood Test 04/28/2001 04/28/2000 Adult Wellness Visit 2016 Depression Monitoring 12/14/2020 12/15/2019 COVID-19 Vaccine ( season) 2023 04/20/2020, 03/23/2020 Influenza Vaccine (FLU shot) (#1) 2023 01/26/2023, 12/11/2019, 12/07/2013 HbA1c 04/02/2024 04/02/2023, 11/05/2022 Mammogram 09/08/2024 09/09/2023, 11/02/2019 AAA Monitoring 09/21/2024 09/22/2023, 10/09, 09/24/2021, Additional history exists Lipid Panel 04/02/2028 04/02/2023, 10/10, 08/01/2021, Additional [...] Directives occurred with: Not Discussed Care Teams Perfume Maker Relationship Specialty Start Date End Date Gisell Alfonso MD [address] [place] [address] [place] [phone] PCP - General Family Medicine 09/08/19 documented as of this encounter
--- OUTSIDE RECORDS SUMMARY | 2024-01-24 12:33 | External Medical Summary | Summary of Care ---
Author Name Unknown Organization [facility] [address] [place] [address] Phone [phone] Care Team Providers Care Cork Sorter Name Role Phone Gisell Alfonso MD Primary Care Prov ider Reason for Visit * Reason Onset Date Comments Hospital Follow-Up Hospital Follow-Up 01/21/2024 Encounter Details Date Type Department Care Team (Latest Contact Info) Description 01/21/2024 3:40 PM EST Office Visit Family Medicine [address] [phone] Lizbeth Grullon MD [address] [place] [address] [place] [phone] Hospital discharge follow-up*; Neuroendocrine tumor of liver; Nausea and vomiting, unspecified vomiting type; History of pancreatic cancer; Post-traumatic osteoarthritis of right shoulder Allergies Active Allergy Reactions Criticality Noted Date Comments Corticosteroids Hives High 04/28/2000 Other reaction(s): ItchyNervous documented as of this encounter (statuses as of 01/21/2024) Medications Biotin 10 MG TABS 5000 mcg daily 08/31/19 20 Active Acetaminophen 500 MG Oral Tablet (Tylenol) 2 caps every 8 hours for 3 days, then 1 cap every 4 hours as needed for pain. Do not exceed 3000mg acetaminophen (Tylenol) every 24 hours. 30 Tab 02/22/19 21 Active Polyethylene Glycol 3350 17 GM Oral Packet (Miralax)Indicati ons:Slow transit constipation Take 1 Packet by mouth daily. For constipation 90 Each 1 03/03/20 21 Active Ibuprofen 600 MG Oral Tablet (Motrin) Take 1 Tab by mouth every 6 hours as needed (pain). With food. 30 Tab 07/12/19 21 Active Triamcinolone Acetonide 0.1 % External Cream (Aristocort)Indic ations:Itching Apply topically to affected area 2 times a day. To affected areas for up to 2 weeks 80 g 1 03/23/19 23 Active Nystatin 541742 UNIT/GM External Powder (Nystop) 11/17/19 22 Active diphenhydrAMINE HCl 25 MG Oral Capsule (Benadryl) Take 1 Capsule by mouth at bedtime as needed for Itching. Active metroNIDAZOLE 0.75 % External Gel (Metrogel)Indicat ions:Folliculitis Apply topically to affected area 2 times a day. Apply to affected area 45 g 3 03/27/19 23 Active Penciclovir 1 % External Cream (Denavir) Apply topically to affected area every 2 hours while awake. apply to cold sores for 4 days. 5 g 5 11/18/19 23 Active Creon 46970-059251 UNIT Oral Capsule Delayed Release Particles (Pancrelipase (Jln-Mdcm-Bvah)) TAKE 2 CAPSULES WITH MEALS 180 Capsule 3 03/26/19 24 Active Clobetasol Propionate 0.05 % External Ointment (Temovate) Apply topically to affected area 2 times a day. Apply to buttocks area as needed for itching 30 g 3 06/11/19 24 Active Omeprazole 20 MG Oral Capsule Delayed Release (PriLOSEC)Indicat ions:Gastroesopha geal reflux disease without esophagitis TAKE 2 CAPSULES EVERY MORNING 180 Capsule 1 10/06/19 24 Active Ondansetron HCl 4 MG Oral Tablet (Zofran) Take 1 Tablet by mouth every 12 hours as needed for Nausea. 30 Tablet 1 11/26/19 24 Active Indomethacin 50 MG Oral CapsuleIndication s:Acute gout of right wrist, unspecified cause Take [...] as needed. For pain. 12/14/19 24 Active metFORMIN HCl 500 MG Oral Tablet (Glucophage) Take 1 Tablet by mouth 2 times a day with morning and evening meals. 024 Discontin ued(Patie nt preferenc e/discont inuation) documented as of this encounter (statuses as of 01/21/2024) Active Problems Problem Noted Date Diagnosed Date [...] as of this encounter (statuses as of 01/21/2024) Immunizations Name Administration Dates Next Due COVID-19 mRNA, LNP-s, No Pre serve, 2-Dose Series ([employer]) 04/20/2020,03/23/2020 Pneumococcal Conjugate Vacc, 13 Valent (Prevnar) 12/15/2019 Pneumococcal Polysaccharide PPV23 (Pneumovax) Seasonal Influenza Vac., MDV, IM, 0.5 mL (Fluzon e) 12/07/2013 Seasonal Influenza, Quadrivalent Hd (Fluzone Hd) 01/26/2023 Seasonal Influenza, Quadrivalent Hd, 65+ Yrs 03/2019 documented as of this encounter Social History Tobacco Use Types Packs/Day Years Used Date Smoking Tobacco: Never Smokeless Tobacco: Never Tobacco Cessation:Counseling Given: Not Answered Alcohol Use Standard Drinks/Week Comments Yes 0 [...] Date Job End Date house keeping at [employer] Not on file Not on file Not on file documented as of this encounter Last Filed Vital Signs Vital Sign Reading Time Taken Comments Blood Pressure 122/74 01/21/2024 3:47 PM EST Pulse 85 01/21/2024 3:47 PM EST Temperature 36.5 C (97.7 F) 01/21/2024 3:47 PM ES T Respiratory Rate 16 01/21/2024 3:47 PM EST Oxygen Saturation 95% 01/21/2024 3:47 PM EST Inhaled Oxygen Concentration - - Weight 70.3 kg (155 lb) 01/21/2024 3:47 PM EST Height - - Body Mass Index 27.46 11/18/2023 9:15 AM EDT documented in this [...] Assessment Author No 02/16/2020 2:22 PM Everardo Iqabl RN * Because of a physical, mental, [...] documented in this encounter Progress Notes * Lizbeth Grullon MD - 01/21/2024 3:42 PM EST SUBJECTIVE: Nadine Carrizales is a 73 year old female. Chief Complaint Patient presents with Hospital Follow-Up Hospital Follow-Up Recent Admission: Patient was recently admitted to [facility]. The date of discharge was 01/17 (overnight observation). Discharge report received and reviewed. Had a headache all day Wednesday. Wednesday, had diarrhea and vomiting. Dry heaving after awhile. Went to the ED. Admitted for N/V, diagnosed with acute gastroenteritis, given zofran and loperamide to go home with. Didn't need to use it at all. HPI: Doing well since discharge. Eating well. Having R shoulder replaced on Wednesday. Hx of pancreatic cancer. Dx of neuroendocrine liver tumor- onchemo. Takes tramadol as needed for pain. Scheduled again for 01/27. Mood has been good during this. Going to [place] makes her anxious. Had gout in R hand. Patient Active Problem List Diagnosis Other specified congenital anomaly of kidney migraine nos 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 Slow transit constipation Gastroesophageal reflux disease without esophagitis Need for hepatitis C screening test Dermatitis Duodenal mass DVT prophylaxis Neuroendocrine carcinoma of pancreas (HCC) Moderate episode of recurrent major depressive disorder (HCC) Other hyperlipidemia Hypoglycemia Recurrent major depressive disorder, in full remission (HCC) Prediabetes Metastasis to liver (HCC) Current Outpatient Medications Medication Sig Dispense Refill [...] Take 1 Packet by mouth daily. For [id number] Each 1 Ibuprofen 600 MG Oral Tablet (Motrin) Take 1 Tab by mouth every 6 hours as needed (pain). With food. 30 Tab 0 Triamcinolone Acetonide 0.1 % External Cream (Aristocort) Apply topically to affected area 2 times a day. To affected areas for up to 2 weeks 80 g 1 Nystatin [id number] UNIT/GM External Powder (Nystop) diphenhydrAMINE HCl 25 MG Oral Capsule (Benadryl) Take 1 Capsule by mouth at bedtime as needed for Itching. metroNIDAZOLE 0.75 % External Gel (Metrogel) Apply topically to affected area 2 times a day. Apply to affected area 45 g 3 Penciclovir 1 % External Cream (Denavir) Apply topically to affected area every 2 hours while awake. apply to cold sores for 4 days. 5 g 5 Creon [id number] UNIT Oral Capsule Delayed Release Particles (Pancrelipase (Mme-Frrf-Kuxv)) TAKE 2 CAPSULES WITH MEALS 180 Capsule 3 Clobetasol Propionate 0.05 % External Ointment (Temovate) Apply topically to affected area 2 times a day. Apply to buttocks area as needed for itching 30 g 3 metFORMIN HCl 500 MG Oral Tablet (Glucophage) Take 1 Tablet by mouth 2 times a day with morning andevening meals. Omeprazole 20 MG Oral Capsule Delayed Release (PriLOSEC) TAKE 2 CAPSULES EVERY MORNING 180 Capsule 1 Ondansetron HCl 4 MG Oral Tablet (Zofran) Take 1 Tablet by mouth every 12 hours as needed for Nausea. 30 Tablet 1 Indomethacin 50 MG Oral Capsule Take 1 Capsule by mouth 3 times a day as needed for Pain. with food40 Capsule 1 No current facility-administered medications for this visit. Current and discharge medications have been reconciled. Review of patient's allergies indicates: Allergen Reactions Corticosteroids Hives Other reaction(s): Itchy Nervous OBJECTIVE: BP 122/74 | Pulse 85 | Temp 97.7 F (36.5 C) (Infrared ) | Resp 16 | Wt 155 lb (70.3 kg) | LMP 04/08/2000 | SpO2 95% | BMI 27.46 kg/m | BSA 1.77 m Review Of Systems: Gastrointestinal: pt. denies:, abdominal pain, nausea, constipation or change in bowel habits, diarrhea PHYSICAL EXAM: BP 122/74 | Pulse 85 | Temp 97.7 F (36.5 C) (Infrared ) | Resp 16 | Wt 155 lb (70.3 kg) | LMP 04/08/2000 | SpO2 95% | BMI 27.46 kg/m | BSA 1.77 m General: alert, healthy, and no distress Head: Normocephalic Ears: External ears normal, Canals clear, TM's Normal Nose: no mucosal erythema, no mucosal edema Heart: regular rate & rhythm and no murmur Lungs: chest symmetric with normal AP diameter, lungs clear to auscultation Abdomen: abdomen soft, non-tender, normal bowel sounds, and no masses or organomegaly Extremities:no joint deformities, effusion, or inflammation, R hand visible swollen without increased warmth or heat; LE without edema Skin: skin color, texture, turgor are normal, no rashes or significant lesions ASSESSMENT: Hospital discharge follow-up (Primary) - DISCH MED RECON CUR MED LIS Resolved after hospitalization. Has zofran at home to use if needed. Encouraged staying hydrated especially with upcoming surgery and chemo. Neuroendocrine tumor of liver For follow up chemo next week. Nausea and vomiting, unspecified vomiting type Resolved History of pancreatic cancer Post-traumatic osteoarthritis of right shoulder Planned for R shoulder replacement next week. PLAN: Follow up in 2 month(s). I spent a total of 20-29 minutes (exact time 22 mins) minutes on the date of service in preparation, delivery, and documentation of the care provided to Nadine Carrizales excluding any time spent in performance of separately billed services. Lizbeth Herron MD documented in this encounter Nursing Notes * Ruthie Wood LPN - 01/21/2024 3:43 PM EST [facility] follow up Feeling better now. documented in this encounter Plan of Treatment Upcoming Encounters Date Type Department Care Team (Late st Contact Info) Description 01/28/2024 1:00 PM EST Immunization/Injec tion Hematology/Oncology Treatment, [place] [address] [facility] [place] [phone] Sridevi, Chair 3 Hem Onc [facility] [address] [facility] [place] [address] 02/23/2024 2:00 PM EST Office Visit Hematology/Oncology [facility] [place] [address] [facility] [place] [phone] César Delong MD [address] [facility] [place] [address] 03/17/2024 11:00 AM EST Office Visit Gastroenterology [address] [place] [address] Isabela Samuels CRNP [address] [facility] [facility] [address] 03/20/2024 8:00 AM EST Office Visit Family Medicine [address] [phone] Lizbeth Grullon MD [address] [place] [address] [place] [phone] 08/09/2024 8:00 AM EDT Office Visit Family Medicine [address] [phone] Gisell Alfonso MD [address] [place] [address] [place] [id number] Health Maintenance Due Date Last Done Comments Cologuard 06/04/1995 Sigmoidoscopy 06/04/1995 Fecal Occult Blood Test 04/28/2001 04/28/2000 Adult Wellness Visit 2016 Depression Monitoring 12/14/2020 12/15/2019 COVID-19 Vaccine (3 - 2024-25 season) 2023 04/20/2020, 03/23/2020 Influenza Vaccine (FLU [...] as of this encounter Visit Diagnoses Diagnosis Hospital discharge follow-up- Primary Other follow-up examination 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
[2024-01-24] MEDS: ceFAZolin 2000MG 2,000 MG/15 ML SYR IV SCH (12:45)
[2024-01-24] MEDS ORDERED: PHENYLEPHRINE 100MCG/ML 5ML SYR ONE (13:01)
[2024-01-24] MEDS: ROPIV 0.5% 246mg, Ketorolac 30mg, EPINEPHrine 0.5mg in NSS INFIL SCH (13:23)
[2024-01-24] MEDS: ORTHO JOINT ANESTHETIC ONE (13:23)
[2024-01-24] MEDS ORDERED: SUGAMMADEX SODIUM 200 MG/2 ML VIAL IV ONE (13:32)
[2024-01-24] MEDS: TRANEXAMIC ACID 1,000 MG **IV Intra-op IV SCH (13:48)
--- NOTE | 2024-01-24 13:59 | Operative Report ---
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 A tenodesis was opted. This was a separate and distinct portion of the procedure. For these reasons, a CPT code modifier 59 will be added to this case. Implants used: I used a [employer] Comprehensive reverse total shoulder arthroplasty system with a size 12 press fit micro humeral stem, a +6 offset humeral tray and a +3 retentive humeral bearing, a 25 mm baseplate with a 6.5 mm central screw and superior and inferior locking screws, and a size 40 mm eccentric glenosphere. Nadine [facility] at [facility] for the above procedure. She was seen in the preoperative holding area and the operative extremity was identified and signed. She was given a preoperative antibiotic, TXA, and an interscalene nerve block. She was taken back to the operating room, laid on table in supine position, and put under general anesthesia. She was then put into the beachchair position. The shoulder was then prepped and draped in sterile fashion. A timeout was done and the patient and the operative extremity was properly identified. A deltopectoral approach was used. Dissection was taken down through the fascia and the deltoid was retracted laterally and the conjoined tendon was retracted medially. The anterior shoulder was exposed. The biceps groove was opened up and the biceps tendon was examined extensively. The biceps tendon demonstrated enlargement and inflammatory changes consistent with longstanding inflammation in the context of osteoarthritis and cuff arthropathy. The long head of the biceps tendon was then tenodesed to the upper border of the pectoralis major. This was a separate and distinct portion of the procedure. The subscapularis was then directly released off the lesser tuberosity with a peel technique. The inferior capsule was released and the humeral head was dislocated. A canal finding reamer was sent down the center of the humeral canal. Sequential reaming up to a size 12 reamer was done. Off that reamer, a proximal humeral resection guide was placed. The proximal humerus was resected at 135 of inclination and 25 of retroversion. Osteophytes were then removed and the glenoid was exposed. Time was spent doing a complete capsular and labral release. The glenoid guide was then placed in the inferior aspect of the glenoid. A 3.2 mm Steinmann pin was then placed into the glenoid vault at 10 of inclination. The glenoid baseplate was then reamed. The final size 25 mm baseplate was then impacted in the place. A 6.5 mm central screw was then placed followed by superior and inferior locking screws. A 40 mm eccentric glenosphere was then impacted into place. Surrounding soft tissues were then injected with 100 cc an orthopedic pain control cocktail. The proximal humerus was then exposed. Sequential broaching of the humerus up to a size 12 broach was done. Off that broach a +6 offset and +3 retentive humeral tray was trialed. The shoulder was then reduced, brought through a full range of motion, and felt to be stable. The shoulder was then dislocated and the broach was removed. The final size 12 micro press-fit humeral stem was then impacted into place. A +3 retentive humeral bearing was then snapped onto a +6 offset humeral tray. The humeral tray was then impacted onto the humeral stem. The shoulder was once again reduced, brought through a full range of motion, and felt to be stable. The subscapularis was poor quality and unable to be repaired. A dilute betadyne lavage was then done for 3 minutes. The joint was then irrigated with normal saline solution. Hemostasis was obtained. The interval was closed with 2-0 Vicryl suture. The skin was then closed with 2-0 Vicryl and donna. A Silverlon dressing was placed and the arm was rested in a regular arm sling. She was then extubated and transferred to a hospital bed. She taken to the postanesthesia care unit in stable condition. She tolerated the procedure well. I attest to the content of the Intraoperative Record and any orders documented therein. Any exceptions are noted below.
[2024-01-24] MEDS ORDERED: ATROPINE SULFATE 0.1 MG/ML 10ML SYR IV PRN (14:14)
[2024-01-24] MEDS ORDERED: fentaNYL citrate PF 100 MCG/2 ML VIAL IV PRN (14:14)
[2024-01-24] MEDS ORDERED: ePHEDrine sulfate 50 MG/ML AMP IV PRN (14:14)
[2024-01-24] MEDS: ONDANSETRON INJ 2 MG/ML 2 ML VIAL IV PRN (14:16)
[2024-01-24] MEDS: DROPERIDOL 5 MG/2 ML VIAL IV PRN (14:18)
[2024-01-24] MEDS: ONDANSETRON INJ 2 MG/ML 2 ML VIAL ONE (14:19)
[2024-01-24] MEDS: DROPERIDOL 5 MG/2 ML VIAL ONE (14:19)
--- NOTE | 2024-01-24 14:39 | Anesthesiology Progress Note ---
Date of Service January 24, 2024 Anesthesia Post Procedure Vital Signs Vital Signs: Temp Pulse Pulse Resp BP Pulse Ox O2 Del Method 01/24/24 14:35 78 15 131/73 95 Room Air 01/24/24 14:25 81 14 142/73 H 95 Room Air 01/24/24 14:15 98 H 21 130/85 97 Oxymask 01/24/24 14:08 36.2 C L 94 H 16 133/89 99 Oxymask 01/24/24 09:55 36.7 C 76 18 141/90 H 96 Room Air O2 Flow Rate 01/24/24 14:35 01/24/24 14:25 01/24/24 14:15 8 01/24/24 14:08 8 01/24/24 09:55 Pain Intensity Right Hand: Pain Intensity: 5 Transfer of Care Handoff Completed per policy Notes Mental Status: alert / awake / arousable Patient Amnestic to Procedure: Yes Nausea / Vomiting: adequately controlled Pain: adequately controlled Airway Patency, RR, SpO2: stable & adequate BP & HR: stable & adequate Hydration State: stable & adequate Anesthetic Complications: no major complications apparent and Pt Satisfied with anesthetic care
[2024-01-24] MEDS ORDERED: MAGNESIUM HYDROXIDE SUSP 30 ML UDC PO PRN (14:55)
[2024-01-24] MEDS ORDERED: HYDROmorphone INJ 0.5 MG/0.5 ML SYR IV PRN (14:55)
[2024-01-24] MEDS ORDERED: LOPERAMIDE HCL 2 MG CAP PO PRN (14:55)
[2024-01-24] MEDS ORDERED: ONDANSETRON INJ 2 MG/ML 2 ML VIAL IV PRN (14:55)
[2024-01-24] MEDS ORDERED: METOCLOPRAMIDE HCL INJ 5 MG/ML 2 ML VIAL IV PRN (14:55)
[2024-01-24] MEDS ORDERED: NALOXONE HCL 0.4 MG/1 ML VIAL/CARP IV PRN (14:55)
[2024-01-24] MEDS ORDERED: oxyCODONE HCL IR 5 MG TAB (IMMEDIATE RELEASE) PO PRN (14:55)
[2024-01-24] MEDS ORDERED: bisacodyL 10 MG SUPP PR PRN (14:55)
--- NOTE | 2024-01-24 15:08 | XRay Report ---
XR shoulder RT min 2V routine CLINICAL HISTORY: Post shoulder surgery COMPARISON: Right shoulder radiographs October 20, 2023. FINDINGS: Alignment of the reverse total right shoulder arthroplasty is anatomic. There is no peripr osthetic fracture or unexpected radiopaque foreign body. There are skin donna. IMPRESSION: Expected findings following total right shoulder arthroplasty. ACT 112: Negative or not required by law. Electronically signed by: Xavi Olsen M.D. 01/24/2024 3:07 PM
[2024-01-24] MEDS: KETOROLAC TROMETHAMINE 15 MG/ML VIAL IV SCH (15:18)
[2024-01-24] MEDS: ceFAZolin 1000MG 1,000 MG/7.5 ML SYR IV SCH (19:23)
[2024-01-24] MEDS: DOCUSATE SODIUM 100 MG CAP PO SCH (20:28)
[2024-01-24] MEDS: SENNA 8.6 MG TAB PO SCH (20:28)
[2024-01-24 23:13] VITALS: RESP 16
--- NOTE | 2024-01-25 06:20 | Discharge Summary ---
Date of Service January 25, 2024 Principal Diagnosis Same as "Discharge Diagnosis" noted below under Discharge Instructions. Discharge Exam Physical examination of the right shoulder, the dressing is clean and dry. She is wearing her sling as instructed. The nerve block is still in effect.. Discharge Data Procedures Performed Operation Date: 01/24/24 12:00 Actual Procedures p Right Reverse Total Shoulder Arthroplasty, Uncemented(Right) - Mg Peralta DO Ordered Studies 01/24/24 12:12 US - OR guided needle placemen Stat Hospital Course (1) Status post reverse total replacement of right shoulder: On January 24, 2024 Nadine arrived at [facility] and underwent a right reverse shoulder replacement without complication. She had a general anesthetic and a right interscalene nerve block. Postoperatively she was placed in a sling and transferred to the general orthopedic floors. Her hospital course was uneventful. On postop day #1, her vital signs were stable and her pain was well-controlled. She was able to participate well with physical therapy doing ambulation and range of motion exercises. She was then discharged to home. She will follow-up with orthopedics in 2 weeks. PG Care Time/CCT Total # of Minutes Spent Total Time Spent with Patient: Total time spent is greater than 50% in coordination of care (as documented) at patient's floor/unit and/or counseling patient: Discharge Plan Discharge Items Patient Disposition: Home - Self-Care Reason For Visit: Right Shoulder Arthritis Discharge Diagnosis: Right reverse shoulder replacement Activity: Per Instructions section Non-emergency contact: Surgeon Call non-emergency contact if: your wound has increased redness and your wound has increased drainage Follow-up/Referrals: iGsell Sinha MD [Primary Care Provider] - Diet: Regular Addtl Attending Provider Instructions: Activity and Therapy Recommendations: * If you are using [facility] then therapy will be provided at your home until they feel you have accomplished all of your goals. * If you are using [facility] then Physical Therapy will be provided until they feel you are ready to start Outpatient Physical Therapy. * If you are not using home therapy then Outpatient Physical Therapy should start about 3-5 days from your day of surgery. Therapy will last about 8-12 weeks * Wear your sling for 3 weeks, unless otherwise instructed. You may remove your sling to shower and to dress, but otherwise, you should be in your sling at all times, including while sleeping * The shoulder replacement is very stable and you can use your hand while in the sling * You were shown a series of exercises in the hospital. Do these exercises daily including the exercises you were shown in physical therapy. Medications: * Narcotic You will likely be sent home from the hospital with a prescription for the narcotic pain medication that worked best throughout your stay. * Cefadroxil -take the antibiotic twice a day for 10 days to help prevent infection. * Other medications may be prescribed for specific circumstances. If you have any questions, please call the office at . * Resume previous home medications unless otherwise instructed Dressing Care: Leave the Silverlon dressing in place for 7 days. After 7 days you may remove the dressing. If the incision is not draining then you may leave the donna open to air. If there is a little bit of drainage or if the donna are getting stuck on your clothing then cover the incision with a dry dressing. The donna will be removed at your 2 week follow-up appointment. Showering: You may shower with the Silverlon dressing in place. Do not let the shower spray hit the dressing directly. Pat the Silverlon dressing dry. If the dressing becomes wet underneath, then simply remove the dressing. Keep the incision dry until you are 7 days out from the day of surgery. After 7 days you may remove the Silverlon dressing and shower with the donna exposed. Let soapy water run over the donna and pat them dry. Do not scrub or soak the incision. Diet: You may resume your previous diet. Things To Watch For: * Drainage from the incision site that occurs more than one week after your surgery. * Increased redness at the incision site. * Fever above 102 degrees Fahrenheit. * Unusual chest pain or shortness of breath. * Call [facility] at with any of the above problems Follow-Up Visit: Follow-up with Dr. Peralta's office 2-3 weeks after your day of surgery. We will remove your donna and answer any questions. If you have any additional questions or concerns, Dr Peralta is usually in the office at the same time and will be available An appointment was probably scheduled when you signed-up for surgery in the office. If you have any questions call More detailed instructions as well as Frequently Asked Questions were provided in a folder by our office when you signed-up for surgery. Please review these instructions when you get home. If you have any further questions or concerns, please feel free to call the office at [phone] Pending Studies at Discharge: No Stand-Alone Forms: [facility] Medications and DC Order Prescriptions: New oxycodone 5 mg tablet 5 mg PO Q6H PRN (Reason: pain) Qty: 30 0RF cefadroxil 500 mg capsule 500 mg PO BID 10 Days Qty: 20 0RF Continued tramadol 50 mg Tablet 50 mg PO Q8H PRN (Reason: Pain) ibuprofen 600 mg Tablet 600 mg PO Q6H PRN (Reason: Pain) biotin 10 mg Tablet 10 mg PO DAILY omeprazole 20 mg capsule,delayed release(DR/EC) 40 mg PO DAILY Creon 36,000-114,000- 180,000 unit capsule,delayed release(DR/EC) 2 cap PO AC ondansetron 4 mg tablet,disintegrating 4 mg PO Q8H PRN (Reason: nausea and vomiting) 7 Days Qty: 20 0RF loperamide 2 mg capsule 2 mg PO Q6H PRN (Reason: loose stool) Qty: 20 0RF Discharge Orders: Discharge Order (Routine); Ordered 01/25/24 Ordered By: Mg Peralta Admission Data Admit Date/Time: 01/24/24 14:03 Attending Provider: Mg Peralta Admit Provider: Mg Peralta Primary Care Provider: Gisell Sinha
--- NOTE | 2024-01-25 06:20 | Orthopedic Progress Note ---
Date of Service January 25, 2024 Assessment & Plan (1) Status post reverse total replacement of right shoulder: Overall she is doing fairly well. She is not having much pain in the right shoulder. She will be seen by physical therapy today for ambulation and range of motion exercises. She can be discharged to home later today. She will follow-up with orthopedics in 2 weeks. Subjective Nadine was seen and examined at bedside this morning. Overall she is doing very well. She is not having much pain in the right shoulder. She was able to get some sleep last night. She has no complaints.. Review of Systems All systems reviewed & are unremarkable except as noted in HPI & below. Physical Exam Physical examination of the right shoulder, the dressing is clean and dry. She is wearing her sling as instructed. The nerve block is still in effect.. Results & Data Results & Data Laboratory Results . Diagnostic Findings Postoperative x-rays of the right shoulder show the prosthesis to be in anatomic alignment without any evidence of fracture, dislocation, or loosening.. PG Care Time/CCT Total # of Minutes Spent Total Time Spent with Patient: Total time spent is greater than 50% in coordination of care (as documented) at patient's floor/unit and/or counseling patient: Coding Level of Care Code 34500 Post Operative Follow-Up Diagnoses Status post reverse total replacement of right shoulder Z96.611
[2024-01-25 07:10] VITALS: BP 143/75; PULSE 75; TEMP 97.9; O2SAT 96
[2024-01-25] MEDS: dexAMETHasone 4 MG TAB PO SCH (08:25)
[2024-01-25] MEDS: PANTOprazole 40 MG TAB PO SCH (08:25)
[2024-01-25] MEDS: MULTIVITAMIN TAB PO SCH (08:25)
[2024-01-25] MEDS ORDERED: NON-FORMULARY MEDICATION (Biotin 10 mg Tablet) PO SCH (09:00)
== END 2024-01-25 11:39 | disposition home or self-care (01) ==
LOC: ASU 09:25 → 3W 09:25